=== PATIENT | female | born 1935 | race Caucasian/White ===

== ENCOUNTER → 2017-09-19 | Outpatient (CLI) | payer MEDICARE, SELFPAY | PROVIDERS: Family Provider Family Medicine; Visit Provider Orthopaedic Surgery | DX: M25.511 Pain in right shoulder (principal) | CPT/HCPCS: 73030 ==

== ENCOUNTER → 2017-10-03 09:49 | Outpatient (CLI) | payer MEDICARE, SELFPAY ==
[2017-10-03 10:28] LABS: INR 1.44 (0.9-1.1); Prothrombin Time 15.6 seconds (9.4-11.8)
== END ==
PROVIDERS: PCP Family Medicine; Visit Provider Family Medicine
DX: Z79.01 Long term (current) use of anticoagulants (principal); Z51.81 Encounter for therapeutic drug level monitoring
CPT/HCPCS: 36415; 85610

== ENCOUNTER → 2018-06-12 07:41 | Outpatient (CLI) | payer MEDICARE, SELFPAY ==
--- NOTE | 2018-06-12 07:49 | CA_ITS ---
PROCEDURE: 2-D M-mode and color Doppler study INDICATIONS FOR THE TEST: Chest pain COPD+ Heart Murmur Tobacco SmokingEX Palpitations+ Fatigue Syncope Edema+ Hypertension+Diabetes Mellitus+ Rheumatic Fever+ SOB BROWN+Obesity+Hyperlipidemia+ Family History HD+ Additional History CHF, dizziness PATIENT INFORMATION HEIGHT: 67 WEIGHT: 200 GENDER: Female B/P: 142/68 2-D/M-MODE INTERPRETATION: 2-D MEASUREMENTS OBSERVED VALUES IN CMS Right Ventricular Dimension (RVDd) 2.4 Interventricular Septum (Thickness)(IVsd) 1.5 Left Ventricular Internal Dimensions(LVIDd) 5.0 Left Ventricular Posterior Wall (Thickness)(LVPWd) 1.5 Aortic Root 2.7 Aortic Cusp Separation 2.1 Left Atrial Dimensions (LAD) 5.6 2D 1. Left atrium is moderately enlarged, left ventricle is normal size, there is mild concentric left ventricular hypertrophy, visually estimated ejection fraction 55% with no regional wall motion abnormality. 2. The right atrium and right ventricle are moderately enlarged with normal contractility. 3. The aortic valve is thickened and calcified leaflet continue to display mobility. 4. The mitral and tricuspid valve leaflets are minimally thickened, there is mild mitral annular calcification present. 5. The pulmonic valve is poorly visualized. 6. No significant pericardial effusion noted. DOPPLER INTERROGATION: Doppler interrogation of the aortic, mitral and tricuspid valvular presence of mild mitral and tricuspid regurgitation, tricuspid regurgitation calculated right ventricular systolic pressure is 55 mmHg consistent with moderate pulmonary hypertension. Diastolic parameters are inconclusive. CONCLUSION: 1. Moderate biatrial enlargement, normal left ventricular size, mild concentric left ventricular hypertrophy, visually estimated ejection fraction of 55% with no regional wall motion abnormality, diastolic parameters are inconclusive. 2. Moderately enlarged right ventricle with normal contractility. 3. Mild mitral and tricuspid regurgitation, calculated right ventricular systolic pressure is 55 mmHg consistent with moderate pulmonary hypertension. 4. No significant pericardial effusion noted.
== END ==
PROVIDERS: Family Provider Family Medicine; PCP Family Medicine; Visit Provider Internal Medicine
DX: I48.2 Chronic atrial fibrillation (principal)
CPT/HCPCS: 93306

== ENCOUNTER → 2018-12-25 11:53 | Outpatient (CLI) | payer MEDICARE, SELFPAY ==
--- NOTE | 2018-12-25 11:57 | NM_ITS ---
CARDIOLITE SPECT MYOCARDIAL PERFUSION LEXISCAN, REST AND STRESS: History: History of AR, obesity, hypertension, diabetes, hyperlipidemia, family history, chest pain shortness of breath Procedure: She received a 0.4 mg of intravenous Lexiscan, resting heart rate was 78 bpm resting blood pressure 126/73, with Lexiscan maximum heart rate achieved was 88 bpm which is less than 85% of the maximum] heart rate and a blood pressure was 110/53. With Lexiscan patient complained shortness of breath and stomach discomfort Electrocardiogram: Resting echocardiogram showed sinus rhythm inferolateral ST-T wave changes consider ischemia versus strain pattern, with Lexiscan there is additional [address] segment depression noted from the baseline EKG. The EKG portion of the Lexiscan Myoview is nondiagnostic due to baseline abnormal EKG. Cardiac stress and resting SPECT images: Cardiac stress and resting SPECT images were obtained using technetium 99 Myoview 32.7 mCi stress and 10.8 mCi at rest. Gated SPECT further analysis of segmental wall motion and calculation of the ejection fraction also done. Cardiac stress and resting SPECT images show a fixed defect involving the anteroapical and apical wall consistent with area of myocardial scarring, without significant zion-infarct ischemia, computer derived ejection fraction is extremely percent with moderate anteroapical and apical wall hypokinesis. Right ventricle is mildly enlarged with normal contractility. Conclusion: 1. The EKG portion of the Lexiscan Myoview is nondiagnostic. 2. Scintigraphic evidence of myocardial scarring involving the distal anteroapical and apical wall without significant zion-infarct ischemia. Computer derived ejection fraction 60% with segmental wall motion abnormality described above, right ventricle is mildly enlarged with normal contractility. 3. Abnormal Lexiscan Myoview study.
== END ==
PROVIDERS: PCP Family Medicine; Visit Provider Internal Medicine
DX: R06.09 Other forms of dyspnea (principal)
CPT/HCPCS: 78452; 93017; A9502; J2785

== ENCOUNTER 2019-01-20 13:29 | Outpatient (RCR) | payer MEDICARE, SELFPAY | END 2019-04-10 13:15 | disposition home or self-care (01) | LOC: PT 13:29 | PROVIDERS: Visit Provider Internal Medicine | DX: Z98.61 Coronary angioplasty status (principal) | CPT/HCPCS: 93798 ==

== ENCOUNTER 2019-05-27 09:48 | Observation (INO) ==
[2019-05-27 09:58] LABS: Basophils # 0.1 K/mm3 (0-0.2); Basophils % 0.4 % (0.1-2.0); Hematocrit 42.4 % (37.0-47.0); Hemoglobin 13.9 g/dL (12.2-16.2); Lymphocytes # 0.7 K/mm3 (0.7-4.5); Lymphocytes % 5.7 % (10-50); Mean Corpuscular HGB Conc 32.8 g/dL (31.8-35.4); Mean Corpuscular Volume 93.2 fl (81-99); Mean Platelet Volume 9.1 fl (7.4-10.4); Monocytes # 0.6 K/mm3 (0.1-1.0); Monocytes % 4.3 % (1.7-9.3); Neutrophils # 11.7 K/mm3 (1.8-7.8); Neutrophils % 89.7 % (37.0-80.0); Platelet Count 273 K/mm3 (142-424); Red Blood Count 4.55 M/mm3 (4.20-5.40); Red Cell Distribution Width 14.8 % (11.5-17.5); White Blood Count 13.1 K/mm3 (4.8-10.8)
[2019-05-27 10:21] LABS: Alanine Aminotransferase 19 U/L (12-78); Albumin Level 3.8 gm/dL (3.4-5.0); Albumin/Globulin Ratio 0.9 (1.1-1.8); Alkaline Phosphatase 99 U/L (46-116); Amylase 23 U/L (25-115); Anion Gap 18.7 mEq/L (5-15); Aspartate Amino Transferase 16 U/L (15-37); Bilirubin,Total 0.4 mg/dL (0.2-1.0); Blood Urea Nitrogen 27 mg/dL (7-18); Calcium 9.2 mg/dL (8.5-10.1); Carbon Dioxide 22 mmol/L (21.0-32.0); Chloride 90 mmol/L (98-107); Globulin 4.2 gm/dl (1.3-3.2); Glucose 221 mg/dL (74-106); Sodium 127 mmol/L (136-145)
--- NOTE | 2019-05-27 10:22 | Emergency Department Note ---
ED Disposition Clinical Impression: Enterocolitis, Chronic congestive heart failure, Coronary arteriosclerosis, Chronic atrial fibrillation, Dehydration, COPD (chronic obstructive pulmonary disease) Disposition: Admitted as Observation Condition on Discharge: Fair Referrals: Provider,MD Jluis [Referring] - Time of Disposition: 13:48 - Critical Care Critical Care Time: No Attestation: On 05/27/19, the high probability of a clinically significant, sudden or life threatening deterioration of the following system(s) required my full and direct attention, intervention and personal management. The time I documented below is in addition to time spent performing reported procedures but includes the following listed in this critical care notation. Medical Decision Making - Medical Records Medical records reviewed: Yes: I reviewed the patient's medical records. - Pradeep Inquiry Pt receiving controlled substance: No Pradeep was queried for this patient: No Vital Signs: 05/27/19 09:46 Temperature 97.7 F Temperature Source Oral Pulse Rate [Right Brachial] 90 Respiratory Rate 22 Blood Pressure [Right Arm] 100/56 L Blood Pressure Mean [Right Arm] 70 Blood Pressure Source [Right Arm] Automatic Cuff Blood Pressure Position [Right Arm] Sitting 02 Sat by Pulse Oximetry 100 Oxygen Delivery Method Room Air - Lab Data Lab results reviewed: Yes: I reviewed the patient's lab results. Lab Results 05/27/19 09:40: WBC 13.1 H, RBC 4.55, Hgb 13.9, Hct 42.4, MCV 93.2, MCH 30.6, MCHC 32.8, RDW 14.8, Plt Count 273, MPV 9.1, Neut % (Auto) 89.7 H, Lymph % (Auto) 5.7 L, [place] % (Auto) 4.3, Eos % (Auto) 0.0 L, Baso % (Auto) 0.4, Neut # (Auto) 11.7 H, Lymph # (Auto) 0.7, [place] # (Auto) 0.6, Eos # (Auto) 0.0, Baso # (Auto) 0.1, Total Counted 100, Neutrophils % (Manual) 81 H, Band Neutrophils % 8.0, Lymphocytes % (Manual) 7 L, Monocytes % (Manual) 2, Metamyelocytes % 1.0, Myelocytes % 1, Platelet Estimate Normal, RBC Morphology Normal 05/27/19 09:40: Sodium 127 L, Potassium 3.7, Chloride 90 L, Carbon Dioxide 22, Anion Gap 18.7 H, BUN 27 H, Creatinine 1.91 H, Estimated Creat Clear 31, Estimated GFR 25 L, Est GFR ( Amer) 31 L, Glucose 221 H, Calcium 9.2, Total Bilirubin 0.4, AST 16, ALT 19, Alkaline Phosphatase 99, Troponin I < 0.02, Total Protein 8.0, Albumin 3.8, Globulin 4.2 H, Albumin/Globulin Ratio 0.9 L, Amylase 23 L, Lipase 82 Result diagrams: 05/27/19 09:40 05/27/19 09:40 Orders (Tests/Meds): ED MEDICATIONS Discontinued Medications Generic Name Dose Route Start Last Admin Trade Name Freq PRN Reason Stop Dose Admin Albuterol/Ipratropium 3 ml 05/27/19 10:17 05/27/19 10:32 Duoneb 3ml Neb IH 05/27/19 10:18 3 ml ONCE ONE Administration Sodium Chloride 1,000 mls @ 999 mls/hr 05/27/19 10:30 05/27/19 10:32 Sod Chlor 0.9% 1000ml Bag IV 05/27/19 11:30 999 mls/hr .Q1H1M EDGAR Administration Ondansetron HCl 4 mg 05/27/19 10:16 05/27/19 10:32 Zofran 4mg/2ml Vial IV 05/27/19 10:17 4 mg ONCE ONE Administration ORDERS Category Date Time Status Diarrhea 23 Panel, PCR Stat Lab 05/27/19 11:20 Received UA [Urinalysis and Microscopic] Stat Lab 05/27/19 10:16 Ordered - Physician Consults Physician Consulted: ilsa Time: 13:27 Comment/Response: We discussed observation, hydration, and treatment if necessary for enterocolitis based on diarrhea panel. Her labs at this point are demonstrating only TRU with CT scan demonstrating enterocolitis and cholelithiasis( no CT evidence of cholecystitis). Her comorbidities are numerous and are favoring observation in house with repeat labs. General Adult HPI - General Chief complaint: Nausea/Vomiting/Diarrhea Stated complaint: nausea/vomiting/diarrhea Time Seen by Provider: 05/27/19 10:19 Mode of Arrival: EMS Source of Information: Patient, Relative, Medical Record Limitations: No Limitations Description of Symptoms (Recalled from ER Triage Doc. by RN): n/v/d for 4-5 days; general weakness, "not feeling well" - History of Present Illness HPI narrative: diarrhea x 3 days , incontinent, history of IBS but today she voices higher v olume diarrhea an more pain than with a typical IBS flare. Fortunately, patient is not tachycardic and to this point has no elevated cardiac markers. Onset (ago): day(s) (3-4) Location: abdomen Radiation: non-radiation Severity: moderate - Related Data Home Medications Medication Instructions Recorded Confirmed buspirone 10 mg tablet 10 mg PO BID 11/04/17 03/18/19 duloxetine 60 mg capsule,delayed 60 mg PO ONCE 11/04/17 03/18/19 release gabapentin 400 mg capsule 400 mg PO TID 11/04/17 03/18/19 levothyroxine 125 mcg tablet 125 mcg PO ONCE tab 11/04/17 03/18/19 metformin 850 mg tablet 850 mg PO BID 11/04/17 03/18/19 nitroglycerin 0.4 mg sublingual 0.4 mg SUBLINGUAL Q5M PRN 11/04/17 03/18/19 tablet omeprazole 40 mg capsule,delayed 40 mg PO ONCE 11/04/17 03/18/19 release rosuvastatin 40 mg tablet 40 mg PO ONCE 11/04/17 03/18/19 carbamazepine 200 mg tablet 200 mg PO ONCE tab 11/05/17 03/18/19 ferrous sulfate 325 mg (65 mg mg PO BID tab 11/05/17 03/18/19 iron) tablet furosemide 40 mg tablet 40 mg PO BID tab 11/05/17 03/18/19 spironolactone 25 mg tablet 25 mg PO QAM 11/05/17 03/18/19 rivaroxaban 10 mg tablet 10 mg PO DAILY 12/17/18 03/18/19 insulin aspart U-100 100 unit/mL 5 unit SQ TID 03/18/19 03/18/19 subcutaneous solution insulin glargine (U-100) 100 30 unit SQ QHS 03/18/19 03/18/19 unit/mL subcutaneous solution Previous Rx's Medication Instructions Recorded digoxin 125 mcg tablet 125 mcg PO DAILY #90 tab 01/07/19 carvedilol 6.25 mg tablet 6.25 mg PO BID #60 tab 01/12/19 clopidogrel 75 mg tablet 75 mg PO DAILY #30 tab 04/20/19 losartan 25 mg tablet 25 mg PO DAILY #30 tab 04/20/19 Allergies Allergy/AdvReac Type Severity Reaction Status Date / Time Pertussis Vaccines Allergy Mild SWELLING Verified 04/20/19 10:56 [PERTUSSIS VACCINES] tetanus and diphtheria Allergy Mild SWELLING Verified 04/20/19 10:56 toxoids [TETANUS & DIPHTHERIA TOXOIDS] Tetanus Vaccines and Toxoid Allergy Unknown SWELLING Verified 04/20/19 10:56 [TETANUS VACCINES & TOXOID] [facility] History - Hepatitis A Screen Drug use history?: No High risk sexual behaviors?: No History of sexually transmitted infection?: No Currently employed?: No Childcare worker?: No Do you have indoor plumbing?: Yes Do you have electricity?: Yes Attestation statement:: This patient has been screened for Hepatitis A risk factors. I have reviewed the patient's past medical history: Yes Medical History: Reports:: Asthma, Atrial Fibrillation, Cardiomyopathy, Congestive Heart Failure, Chronic Obstructive Pulmonary Disease (COPD), Coronary Artery Disease, Diabetes Mellitus Type 1, Hyperlipidemia, Hypertension Denies:: Seizures Other Medical History: Reports: Arthritis Other Surgeries: Yes: Cardiac Catheterization, Coronary Stent, Hysterectomy- Total, Other - Social History Smoking Status: Former smoker Tobacco Type: cigarettes Alcohol Intake: never Alcohol Intake Frequency:: other Substance Use Type: denies use Occupational Status: retired, disabled Housing: house Household Members: none Family Hx:: Non-contributory ROS Obtained: Yes All systems reviewed & no additional complaints - Constitutional Constitutional: Denies chills, Denies fatigue, Denies fever(s) - Eyes Eyes: Denies change in vision - ENT Ears, Nose, Mouth, and Throat: Reports dizziness - Cardiovascular Cardiovascular: Denies chest pain, Denies chest pain at rest, Denies diaphoresis, Reports dyspnea, Reports dyspnea on exertion, Reports lightheadedness - Respiratory Respiratory: Yes dyspnea, Yes dyspnea on exertion - Gastrointestinal Gastrointestingal: Reports: abdominal pain, diarrhea - Musculoskeletal Musculoskeletal: Denies back pain, Denies muscle cramps, Reports muscle weakness, Denies muscle aches, Denies neck pain, Denies numbness, Denies stiffness - Integumentary/Breasts Skin/Breast: Denies rash, Denies skin pain - Neurologic Neurologic: Reports abnormal gait, Denies abnormal movements, Denies abnormal speech, Denies behavioral changes, Denies confusion, Denies loss of vision, Denies seizure-like activity, Denies vertigo, Reports other (secondary to weak ness) - Hematologic/Lymphatic Henatologic/Lymphatic: Denies easy bleeding, Denies easy bruising, Denies lymphadenopathy Physical Exam - General General appearance: alert, in no apparent distress, in distress, other (mild, grunting) - Head Head exam: atraumatic, normocephalic, normal inspection - ENT ENT exam: Present: normal exam, normal oropharynx, mucous membranes moist, TM's normal bilaterally, normal external ear exam - Neck Neck exam: Present: normal inspection, full ROM, trachea midline. Absent: meningismus, lymphadenopathy - Chest Chest inspection: Present: normal inspection, symmetric chest wall rise. Absent: tenderness - Respiratory Respiratory exam: Present: normal lung sounds bilaterally. Absent: respiratory distress - Cardiovascular Cardiovascular exam: Present: regular rate, normal rhythm. Absent: JVD - Abdominal Exam Abdominal exam: Present: soft, tenderness, other (mild diffuse). Absent: d istention, guarding, rebound - Extremities Exam Extremities exam: Present: normal inspection, full ROM, normal capillary refill. Absent: calf tenderness - Back Exam Back exam: Present: normal inspection. Absent: tenderness - Neurological Exam Neurological exam: Present: alert, oriented X3 - Psychiatric Psychiatric exam: Present: normal affect - Skin Skin exam: Present: warm, dry, intact, normal color - Lymphatic Lymphatic Findings: no adenopathy
[2019-05-27 10:35] LABS: Lymphocytes % 7 % (10-50); Monocytes % 2 % (2-9); Myelocytes % 1 (0-1); Neutrophils % 81 % (42-76); RBC Morphology Normal; Total Cells Counted 100
--- NOTE | 2019-05-27 13:44 | Electrocardiograph Report ---
APPROVED REPORT Exam: Resting ECG HR:100 bpm ECG Measurements Heart Rate 100 AXES QRSd 98 QRS 45 QT 292 T240 QTc 376 <Conclusion> Atrial fibrillation with premature ventricular or aberrantly conducted complexes ST & T wave abnormality, ? lyte disturbance Abnormal ECG Electronically signed by : Aubrey Gallardo, 05/27/2019 13:43:59
--- NOTE | 2019-05-27 15:09 | History & Physical Report ---
*Admission Date: 05/27/19 *Chief complaint: Diarrhea *History of present illness: 83-year-old female presented to the emergency department with 2 to 3 days of diarrhea with 10 or more bowel movements over the last 24 hours and onset of crampy abdominal pain. History is provided by patient's [id number]. She does not believe the patient has had any fevers. The only sick contact was a great-grandson 2 weeks ago with a 24-hour stomach bug. Other family members have remained well. They all ate the same food. There has been no recent travel. Patient was evaluated in the emergency department and found to have mild acute kidney injury and stool studies were positive for Salmonella as well as enteropathogenic E. coli. Patient is been admitted and will be treated with oral precious quinolone and IV fluids with repeat labs in a.m. [facility] History I have reviewed the patient's past medical history: Yes Medical History: Reports:: Asthma, Atrial Fibrillation, Cardiomyopathy, Congestive Heart Failure, Chronic Obstructive Pulmonary Disease (COPD), Coronary Artery Disease, Diabetes Mellitus Type 1, Hyperlipidemia, Hypertension Denies:: Seizures *Have you ever received a pneumonia vaccine?: No *Have you received a flu vaccine this season?: No Other Medical History: Reports: Arthritis Other Surgeries: Yes: Cardiac Catheterization, Coronary Stent, Hysterectomy- Total, Other - *Social History Smoking Status: Former smoker Tobacco Type: cigarettes Alcohol Intake: never Alcohol Intake Frequency:: other Substance Use Type: denies use *Occupational Status:: retired, disabled Housing: house Household Members: none *Travel in the last 8 weeks: None Family Hx:: Non-contributory Review of Systems - Review of Systems Review of systems:: unable to obtain - *Neurologic Reports abnormal walking, Reports dizziness, Reports other (secondary to weakness), Denies abnormal movements, Denies abnormal speech, Denies behavioral changes, Denies confusion, Denies loss of vision, Denies numbness, Denies seizure-like activity, Denies dizziness Meds Home Medications Medication Instructions Recorded Confirmed Type duloxetine 60 mg capsule,delayed 60 mg PO ONCE 11/04/17 05/27/19 History release gabapentin 400 mg capsule 400 mg PO TID 11/04/17 05/27/19 History levothyroxine 125 mcg tablet 125 mcg PO ONCE tab 11/04/17 05/27/19 History omeprazole 40 mg capsule,delayed 40 mg PO ONCE 11/04/17 05/27/19 History release rosuvastatin 40 mg tablet 40 mg PO ONCE 11/04/17 05/27/19 History ferrous sulfate 325 mg (65 mg 325 mg PO BID tab 11/05/17 05/27/19 History iron) tablet furosemide 40 mg tablet 40 mg PO BID tab 11/05/17 05/27/19 History spironolactone 25 mg tablet 25 mg PO QAM 11/05/17 03/18/19 History rivaroxaban 10 mg tablet 10 mg PO DAILY 12/17/18 05/27/19 History insulin aspart U-100 100 unit/mL 5 unit SQ TID 03/18/19 05/27/19 History subcutaneous solution insulin glargine (U-100) 100 30 unit SQ QHS 03/18/19 05/27/19 History unit/mL subcutaneous solution Carvedilol [Carvedilol 6.25mg Tab] 6.25 mg PO BID 05/27/19 05/27/19 History Clopidogrel Bisulfate [Plavix 75mg 75 mg PO DAILY 05/27/19 05/27/19 History Tab] Digoxin 125 mcg PO DAILY 05/27/19 05/27/19 History Losartan Potassium 25 mg PO DAILY 05/27/19 05/27/19 History Allergies Allergy/AdvReac Type Severity Reaction Status Date / Time Pertussis Vaccines Allergy Mild SWELLING Verified 04/20/19 10:56 [PERTUSSIS VACCINES] tetanus and diphtheria Allergy Mild SWELLING Verified 04/20/19 10:56 toxoids [TETANUS & DIPHTHERIA TOXOIDS] Tetanus Vaccines and Toxoid Allergy Unknown SWELLING Verified 04/20/19 10:56 [TETANUS VACCINES & TOXOID] Exam Vital signs and Labs for Last 24 Hours: Temp Pulse Resp BP Pulse Ox 98.0 F 79 22 105/70 L 95 05/27/19 14:48 05/27/19 14:48 05/27/19 14:48 05/27/19 14:48 05/27/19 13:41 Laboratory Results - last 24 hr 05/27/19 09:40: WBC 13.1 H, RBC 4.55, Hgb 13.9, Hct 42.4, MCV 93.2, MCH 30.6, MCHC 32.8, RDW 14.8, Plt Count 273, MPV 9.1, Neut % (Auto) 89.7 H, Lymph % (Auto) 5.7 L, [place] % (Auto) 4.3, Eos % (Auto) 0.0 L, Baso % (Auto) 0.4, Neut # (Auto) 11.7 H, Lymph # (Auto) 0.7, [place] # (Auto) 0.6, Eos # (Auto) 0.0, Baso # (Auto) 0.1, Total Counted 100, Neutrophils % (Manual) 81 H, Band Neutrophils % 8.0, Lymphocytes % (Manual) 7 L, Monocytes % (Manual) 2, Metamyelocytes % 1.0, Myelocytes % 1, Platelet Estimate Normal, RBC Morphology Normal 05/27/19 09:40: Sodium 127 L, Potassium 3.7, Chloride 90 L, Carbon Dioxide 22, Anion Gap 18.7 H, BUN 27 H, Creatinine 1.91 H, Estimated Creat Clear 31, Estimated GFR 25 L, Est GFR ( Amer) 31 L, Glucose 221 H, Calcium 9.2, Total Bilirubin 0.4, AST 16, ALT 19, Alkaline Phosphatase 99, Troponin I < 0.02, Total Protein 8.0, Albumin 3.8, Globulin 4.2 H, Albumin/Globulin Ratio 0.9 L, Amylase 23 L, Lipase 82 05/27/19 11:20: Stl Aeromonas (PCR) Not detected, Stl C. cayetanensis PCR Not detected, Stool Rotavirus (PCR) Not detected, Stl Adenov F 40/41 PCR Not detected, Stool Astrovirus (PCR) Not detected, Stool Campylobacter PCR Not detected, Stl C.difficile Tox PCR Not detected, Stool Cryptosporidium PCR Not detected, Stl E.coli Shiga Tox PCR Not detected, Stool E coli O157 PCR Not detected, Stl Enterotoxigenic E PCR Not detected, Stool EPEC (PCR) Detected A, Stool EAEC (PCR) Detected A, Stl E. histolytica PCR Not detected, Stool Giardia Lamblia PCR Not detected, Stool Salmonella PCR Detected A, Stool Sapovirus (PCR) Not detected, Stl P. shigelloides PCR Not detected, Stl Shigella/EIEC PCR Not detected, St Y.enterocolitica PCR Not detected, Stool Vibrio (PCR) Not detected, Stl Vibrio cholerae PCR Not detected, Stl Norovirus GI/GII PCR Not detected I & O for Last 24 hours: Intake & Output 05/25/19 05/26/19 05/27/19 05/28/19 11:59 11:59 11:59 11:59 Intake Total 3450 / 3450 Output Total 780 / 780 Balance 2670 / 2670 Weight 185 lb Narrative: Patient looks like she does not feel well but she is nontoxic-appearing. Oropharynx is moist. Neck without lymphadenopathy. Lungs are clear. Heart has an irregular rate and rhythm. Abdomen is soft with mild diffuse tenderness. Bowel sounds are present. Patient can move all extremities and there is no pedal edema. Assessment and Plan (1) Salmonella enteritis Current visit: Yes Status: Acute Category: Medical Code(s): A02.0 - Salmonella enteritis (2) E coli enteritis Current visit: Yes Status: Acute Category: Medical Code(s): A04.4 - Other intestinal Escherichia coli infections (3) Enterocolitis Current visit: Yes Status: Acute Category: Medical Code(s): K52.9 - Noninfective gastroenteritis and colitis, unspecified (4) Hyponatremia Current visit: Yes Status: Acute Category: Medical Code(s): E87.1 - Hypo- osmolality and hyponatremia - Assessment and plan all Dx Assessment and Plan for all problems:: 1. Oral Levaquin 2. Continue normal saline at 100 mL's an hour 3. Monitor for response 4. Home medications
--- NOTE | 2019-05-27 16:26 | Pharmacy Consult Notes ---
[facility] Pharmacy VTE Monitoring - Patient Demographics Admission date: 05/27/19 Report Date: 05/27/19 Time: 16:26 Allergies/Adverse Reactions: Patient Allergies Pertussis Vaccines [PERTUSSIS VACCINES] Allergy (Mild, Verified 04/20/19 10:56) SWELLING tetanus and diphtheria toxoids [TETANUS & DIPHTHERIA TOXOIDS] Allergy (Mild, Verified 04/20/19 10:56) SWELLING Tetanus Vaccines and Toxoid [TETANUS VACCINES & TOXOID] Allergy (Unknown, Verified 04/20/19 10:56) SWELLING Height: 1.7 m Weight: 90.718 kg Patient Problems: Current Active Problems Enterocolitis (Acute) Dehydration (Acute) COPD (chronic obstructive pulmonary disease) (Acute) Salmonella enteritis (Acute) E coli enteritis (Acute) Hyponatremia (Acute) Chronic congestive heart failure (Chronic) Chronic atrial fibrillation (Chronic) Coronary arteriosclerosis (Chronic) - VTE Risk Labs: VTE Related Lab Results Hgb 13.9 g/dL (12.2-16.2) 05/27/19 09:40 Hct 42.4 % (37.0-47.0) 05/27/19 09:40 Plt Count 273 K/mm3 (142-424) 05/27/19 09:40 BUN 27 mg/dL (7-18) H 05/27/19 09:40 Creatinine 1.91 mg/dL (0.55-1.02) H 05/27/19 09:40 Estimated Creat Clear 31 mL/min (50-200) 05/27/19 09:40 VTE Score: 5 VTE Risk Level: Low Risk - Prophylaxis VTE Prophylaxis Ordered?: Yes Types of VTE Prophylaxis: Pharmacological Pharmacologic Type: Other (XARELTO ORDERED) - VTE Diagnosis Confirmed Treatment or plan recommended: Continue Current Treatment
[2019-05-28 07:26] LABS: Microscopic, Urine URINE MICROSCOPIC (MICROSCOPIC)
[2019-05-28 07:29] LABS: Appearance,Urine SL CLOUDY (Clear); Bilirubin,Urine Negative (Negative); Blood, Urine 1+ (Negative); Color,Urine YELLOW (Yellow); Glucose,Urine (UA) Negative (Negative); Ketones,Urine Negative (Negative); Leukocyte Esterase,Urine Negative (Negative); PH,Urine 5.5 (5.0-8.5); Protein,Urine TRACE (Negative); Urobilinogen,Urine 0.2 EU/dl (0.2)
--- NOTE | 2019-05-28 07:35 | Progress Note ---
Internal Medicine - PN: Subj *Date: 05/28/19 *Time: 07:34 Interval history: Patient continues to have some crampy abdominal pain and loose stools. She was able to rest overnight. Exam Vital signs and Labs for Last 24 Hours: Temp Pulse Resp BP Pulse Ox 97.8 F 75 20 105/46 L 99 05/28/19 04:00 05/28/19 04:00 05/28/19 04:00 05/28/19 04:00 05/28/19 04:00 Laboratory Results - last 24 hr 05/27/19 09:40: WBC 13.1 H, RBC 4.55, Hgb 13.9, Hct 42.4, MCV 93.2, MCH 30.6, MCHC 32.8, RDW 14.8, Plt Count 273, MPV 9.1, Neut % (Auto) 89.7 H, Lymph % (Auto) 5.7 L, [place] % (Auto) 4.3, Eos % (Auto) 0.0 L, Baso % (Auto) 0.4, Neut # (Auto) 11.7 H, Lymph # (Auto) 0.7, [place] # (Auto) 0.6, Eos # (Auto) 0.0, Baso # (Auto) 0.1, Total Counted 100, Neutrophils % (Manual) 81 H, Band Neutrophils % 8.0, Lymphocytes % (Manual) 7 L, Monocytes % (Manual) 2, Metamyelocytes % 1.0, Myelocytes % 1, Platelet Estimate Normal, RBC Morphology Normal 05/27/19 09:40: Sodium 127 L, Potassium 3.7, Chloride 90 L, Carbon Dioxide 22, Anion Gap 18.7 H, BUN 27 H, Creatinine 1.91 H, Estimated Creat Clear 31, Estimated GFR 25 L, Est GFR ( Amer) 31 L, Glucose 221 H, Calcium 9.2, Total Bilirubin 0.4, AST 16, ALT 19, Alkaline Phosphatase 99, Troponin I < 0.02, Total Protein 8.0, Albumin 3.8, Globulin 4.2 H, Albumin/Globulin Ratio 0.9 L, Amylase 23 L, Lipase 82 05/27/19 11:20: Stl Aeromonas (PCR) Not detected, Stl C. cayetanensis PCR Not detected, Stool Rotavirus (PCR) Not detected, Stl Adenov F 40/41 PCR Not detected, Stool Astrovirus (PCR) Not detected, Stool Campylobacter PCR Not detected, Stl C.difficile Tox PCR Not detected, Stool Cryptosporidium PCR Not detected, Stl E.coli Shiga Tox PCR Not detected, Stool E coli O157 PCR Not detected, Stl Enterotoxigenic E PCR Not detected, Stool EPEC (PCR) Detected A, Stool EAEC (PCR) Detected A, Stl E. histolytica PCR Not detected, Stool Giardia Lamblia PCR Not detected, Stool Salmonella PCR Detected A, Stool Sapovirus (PCR) Not detected, Stl P. shigelloides PCR Not detected, Stl Shigella/EIEC PCR Not detected, St Y.enterocolitica PCR Not detected, Stool Vibrio (PCR) Not detected, Stl Vibrio cholerae PCR Not detected, Stl Norovirus GI/GII PCR Not detected 05/27/19 16:47: POC Glucose 191 H 05/27/19 21:08: POC Glucose 264 H 05/28/19 06:12: POC Glucose 240 H I & O for Last 24 hours: Intake & Output 05/25/19 05/26/19 05/27/19 05/28/19 11:59 11:59 11:59 11:59 Intake Total 4430 / 4430 Output Total 780 / 780 Balance 3650 / 3650 Weight 185 lb 200 lb 8 oz Narrative: Patient appears comfortable. Lungs are clear. Heart rate is irregular. Abdomen is soft with mild diffuse tenderness. Bowel sounds are present Assessment and Plan (1) Salmonella enteritis Current visit: Yes Status: Acute Category: Medical Code(s): A02.0 - Salmonella enteritis (2) E coli enteritis Current visit: Yes Status: Acute Category: Medical Code(s): A04.4 - Other intestinal Escherichia coli infections (3) Enterocolitis Current visit: Yes Status: Acute Category: Medical Code(s): K52.9 - Noninfective gastroenteritis and colitis, unspecified (4) Hyponatremia Current visit: Yes Status: Acute Category: Medical Code(s): E87.1 - Hypo- osmolality and hyponatremia - Assessment and plan all Dx Assessment and Plan for all problems:: Continue IV fluids and oral Levaquin
[2019-05-28 07:44] LABS: Bacteria,Urine Trace /lpf; RBC,Urine Occasional #/hpf (0-3); WBC,Urine Occasional #/hpf (0-3)
[2019-05-28 07:55] LABS: Anion Gap 15.4 mEq/L (5-15)
[2019-05-28 08:01] LABS: Basophils % 0.1 % (0.1-2.0); Calcium 8.1 mg/dL (8.5-10.1); Eosinophils % 0.1 % (0.1-12.0); Hematocrit 36.7 % (37.0-47.0); Lymphocytes # 0.9 K/mm3 (0.7-4.5); Lymphocytes % 13.6 % (10-50); Mean Corpuscular HGB Conc 32.4 g/dL (31.8-35.4); Mean Corpuscular Volume 93.6 fl (81-99); Mean Platelet Volume 8.9 fl (7.4-10.4); Monocytes # 0.3 K/mm3 (0.1-1.0); Monocytes % 4.4 % (1.7-9.3); Neutrophils # 5.4 K/mm3 (1.8-7.8); Neutrophils % 81.8 % (37.0-80.0); Platelet Count 174 K/mm3 (142-424); Red Blood Count 3.91 M/mm3 (4.20-5.40); Red Cell Distribution Width 14.8 % (11.5-17.5); White Blood Count 6.6 K/mm3 (4.8-10.8)
[2019-05-28 08:05] LABS: Hemoglobin 11.9 g/dL (12.2-16.2)
--- NOTE | 2019-05-29 07:18 | Progress Note ---
Internal Medicine - PN: Subj *Date: 05/29/19 *Time: 07:17 Interval history: Patient reports persistence but improvement in crampy abdominal pain and diarrhea has become less frequent. Exam Vital signs and Labs for Last 24 Hours: Temp Pulse Resp BP Pulse Ox 97.5 F L 81 22 131/65 96 05/29/19 04:00 05/29/19 04:00 05/29/19 04:00 05/29/19 04:00 05/29/19 04:00 Laboratory Results - last 24 hr 05/28/19 07:20: Urine Color Yellow, Urine Appearance Sl cloudy, Urine pH 5.5, Ur Specific [place] 1.010, Urine Protein Trace, Urine Glucose (UA) Negative, Urine Ketones Negative, Urine Blood 1+, Urine Nitrate Negative, Urine Bilirubin Negative, Urine Urobilinogen 0.2, Ur Leukocyte Esterase Negative, Urine RBC Occasional, Urine WBC Occasional, Ur Squamous Epith Cells 5-10, Urine Bacteria Trace 05/28/19 07:30: WBC 6.6 D, RBC 3.91 L, Hgb 11.9 L D, Hct 36.7 L, MCV 93.6, MCH 30.3, MCHC 32.4, RDW 14.8, Plt Count 174 D, MPV 8.9, Neut % (Auto) 81.8 H, Lymph % (Auto) 13.6, [place] % (Auto) 4.4, Eos % (Auto) 0.1, Baso % (Auto) 0.1, Neut # (Auto) 5.4, Lymph # (Auto) 0.9, [place] # (Auto) 0.3, Eos # (Auto) 0.0, Baso # (Auto) 0.0 05/28/19 07:30: Sodium 129 L, Potassium 3.4 L, Chloride 96 L, Carbon Dioxide 21, Anion Gap 15.4 H, BUN 39 H D, Creatinine 2.02 H, Estimated Creat Clear 31, Estimated GFR 24 L, Est GFR ( Amer) 29 L, Glucose 253 H, Calcium 8.1 L D 05/28/19 11:24: POC Glucose 283 H 05/28/19 16:29: POC Glucose 250 H 05/28/19 20:09: POC Glucose 269 H 05/29/19 06:32: POC Glucose 139 H I & O for Last 24 hours: Intake & Output 05/26/19 05/27/19 05/28/19 05/29/19 11:59 11:59 11:59 11:59 Intake Total 4910 / 4910 2585 / 2585 Output Total 780 / 780 Balance 4130 / 4130 2585 / 2585 Weight 185 lb 200 lb 8 oz 200 lb 7.99 oz Narrative: Patient looks well. Lungs are clear. Heart has a regular rate and rhythm. Abdomen is soft with active bowel sounds Assessment and Plan (1) Salmonella enteritis Current visit: Yes Status: Acute Category: Medical Code(s): A02.0 - Salmonella enteritis (2) E coli enteritis Current visit: Yes Status: Acute Category: Medical Code(s): A04.4 - Other intestinal Escherichia coli infections (3) Enterocolitis Current visit: Yes Status: Acute Category: Medical Code(s): K52.9 - Noninfective gastroenteritis and colitis, unspecified (4) Hyponatremia Current visit: Yes Status: Acute Category: Medical Code(s): E87.1 - Hypo- osmolality and hyponatremia - Assessment and plan all Dx Assessment and Plan for all problems:: Await morning labs. Anticipate discharge later today
--- NOTE | 2019-05-29 07:21 | Discharge Summary ---
General - General Admission date:: 05/27/19 Discharge date: 05/29/19 HPI HPI: 83-year-old female presented to the emergency department with 2 to 3 days of diarrhea with 10 or more bowel movements over the last 24 hours and onset of crampy abdominal pain. History is provided by patient's [id number]. She does not believe the patient has had any fevers. The only sick contact was a great-grandson 2 weeks ago with a 24-hour stomach bug. Other family members have remained well. They all ate the same food. There has been no recent travel. Patient was evaluated in the emergency department and found to have mild acute kidney injury and stool studies were positive for Salmonella as well as enteropathogenic E. coli. Patient is been admitted and will be treated with oral precious quinolone and IV fluids with repeat labs in a.m. Hospital Course Hospital Course: Patient was admitted and diarrhea panel revealed multiple organisms including Salmonella and enteropathogenic E. coli. Patient was given oral Levaquin 500 mg. Over the course of 48 hours patient's abdominal cramping decreased in intensity. Frequency of bowel movements also decreased. Patient did not have any vomiting and was able to tolerate a liquid diet. Patient was given IV fluids for mild dehydration present on admission. On May 29 patient was tolerating diet. Abdominal cramping had improved. Diarrhea was less frequent. Patient was discharged home to complete a course of oral antibiotics. Patient will follow-up in my office next week. Patient had mild acute kidney injury on admission. Medication adjustments will be made at discharge and patient will have repeat labs in follow-up Objective Vital signs: Temp Pulse Resp BP Pulse Ox 97.5 F L 81 22 131/65 96 05/29/19 04:00 05/29/19 04:00 05/29/19 04:00 05/29/19 04:00 05/29/19 04:00 Results Labs on day of discharge: Labs from last 24 hours 05/29/19 05/28/19 05/28/19 06:32 20:09 16:29 WBC RBC Hgb Hct MCV MCH MCHC RDW Plt Count MPV Neut % (Auto) Lymph % (Auto) [place] % (Auto) Eos % (Auto) Baso % (Auto) Neut # (Auto) Lymph # (Auto) [place] # (Auto) Eos # (Auto) Baso # (Auto) Sodium Potassium Chloride Carbon Dioxide Anion Gap BUN Creatinine Estimated Creat Clear Estimated GFR Est GFR ( Amer) Glucose POC Glucose 139 H 269 H 250 H Calcium Urine Color Urine Appearance Urine pH Ur Specific [place] Urine Protein Urine Glucose (UA) Urine Ketones Urine Blood Urine Nitrate Urine Bilirubin Urine Urobilinogen Ur Leukocyte Esterase Urine RBC Urine WBC Ur Squamous Epith Cells Urine Bacteria 05/28/19 05/28/19 05/28/19 11:24 07:30 07:30 WBC 6.6 D RBC 3.91 L Hgb 11.9 L D Hct 36.7 L MCV 93.6 MCH 30.3 MCHC 32.4 RDW 14.8 Plt Count 174 D MPV 8.9 Neut % (Auto) 81.8 H Lymph % (Auto) 13.6 [place] % (Auto) 4.4 Eos % (Auto) 0.1 Baso % (Auto) 0.1 Neut # (Auto) 5.4 Lymph # (Auto) 0.9 [place] # (Auto) 0.3 Eos # (Auto) 0.0 Baso # (Auto) 0.0 Sodium 129 L Potassium 3.4 L Chloride 96 L Carbon Dioxide 21 Anion Gap 15.4 H BUN 39 H D Creatinine 2.02 H Estimated Creat Clear 31 Estimated GFR 24 L Est GFR ( Amer) 29 L Glucose 253 H POC Glucose 283 H Calcium 8.1 L D Urine Color Urine Appearance Urine pH Ur Specific [place] Urine Protein Urine Glucose (UA) Urine Ketones Urine Blood Urine Nitrate Urine Bilirubin Urine Urobilinogen Ur Leukocyte Esterase Urine RBC Urine WBC Ur Squamous Epith Cells Urine Bacteria 05/28/19 07:20 WBC RBC Hgb Hct MCV MCH MCHC RDW Plt Count MPV Neut % (Auto) Lymph % (Auto) [place] % (Auto) Eos % (Auto) Baso % (Auto) Neut # (Auto) Lymph # (Auto) [place] # (Auto) Eos # (Auto) Baso # (Auto) Sodium Potassium Chloride Carbon Dioxide Anion Gap BUN Creatinine Estimated Creat Clear Estimated GFR Est GFR ( Amer) Glucose POC Glucose Calcium Urine Color Yellow Urine Appearance Sl cloudy Urine pH 5.5 Ur Specific [place] 1.010 Urine Protein Trace Urine Glucose (UA) Negative Urine Ketones Negative Urine Blood 1+ Urine Nitrate Negative Urine Bilirubin Negative Urine Urobilinogen 0.2 Ur Leukocyte Esterase Negative Urine RBC Occasional Urine WBC Occasional Ur Squamous Epith Cells 5-10 Urine Bacteria Trace DS: Diagnosis - Discharge Diagnosis (1) Salmonella enteritis Status: Acute (2) E coli enteritis Status: Acute (3) Enterocolitis Status: Acute (4) Hyponatremia Status: Acute Discharge Plan - Patient Discharge Instructions ACTIVITY: Continue current activity DIET: continue same diet Patient Instructions: Chronic Obstructive Pulmonary Disease, Salmonellosis, DI for Chronic Obstructive Pulmonary Disease, DI for Dehydration -- Adult - Follow up Plan Disposition: Home, Self-Usp Medications: Home Medications Medication Instructions Recorded Confirmed Type duloxetine 60 mg capsule,delayed 60 mg PO DAILY 11/04/17 05/27/19 History release gabapentin 400 mg capsule 400 mg PO TID 11/04/17 05/27/19 History levothyroxine 125 mcg tablet 125 mcg PO DAILY tab 11/04/17 05/28/19 History omeprazole 40 mg capsule,delayed 40 mg PO HS 11/04/17 05/27/19 History release ferrous sulfate 325 mg (65 mg 325 mg PO BID tab 11/05/17 05/27/19 History iron) tablet furosemide 40 mg tablet 40 mg PO BID tab 11/05/17 05/27/19 History rivaroxaban 10 mg tablet 10 mg PO QPMWM 12/17/18 05/28/19 History insulin aspart U-100 100 unit/mL 5 unit SQ TID 03/18/19 05/27/19 History subcutaneous solution insulin glargine (U-100) 100 30 unit SQ HS 03/18/19 05/28/19 History unit/mL subcutaneous solution Carvedilol [Carvedilol 6.25mg Tab] 6.25 mg PO BID 05/27/19 05/27/19 History Clopidogrel Bisulfate [Plavix 75mg 75 mg PO DAILY 05/27/19 05/27/19 History Tab] Digoxin 125 mcg PO DAILY 05/27/19 05/27/19 History Losartan Potassium 25 mg PO DAILY 05/27/19 05/27/19 History Fluticasone/Vilanterol [Breo 2 puff IN DAILY 05/28/19 05/28/19 History Ellipta 100-25 Mcg INH] Rosuvastatin Calcium 40 mg PO HS 05/28/19 05/28/19 History Spironolactone [Aldactone 25mg Tab] 25 mg PO DAILY 05/28/19 05/28/19 History Umeclidinium [place]app[place] [Incruse 1 puff IH DAILY 05/28/19 05/28/19 History Ellipta] Ciprofloxacin HCl [Cipro 500mg 500 mg PO BID #10 tab 05/29/19 Rx Tab] Prescriptions/Medication Reconciliation: New Ciprofloxacin HCl [Cipro 500mg Tab] 500 mg PO BID #10 tab Continued duloxetine 60 mg capsule,delayed release 60 mg PO DAILY gabapentin 400 mg capsule 400 mg PO TID levothyroxine 125 mcg tablet 125 mcg PO DAILY tab omeprazole 40 mg capsule,delayed release 40 mg PO HS furosemide 40 mg tablet 40 mg PO BID tab rivaroxaban 10 mg tablet 10 mg PO QPMWM insulin aspart U-100 100 unit/mL subcutaneous solution 5 unit SQ TID insulin glargine (U-100) 100 unit/mL subcutaneous solution 30 unit SQ HS ferrous sulfate 325 mg (65 mg iron) tablet 325 mg PO BID tab Digoxin 125 mcg PO DAILY Clopidogrel Bisulfate [Plavix 75mg Tab] 75 mg PO DAILY Carvedilol [Carvedilol 6.25mg Tab] 6.25 mg PO BID Rosuvastatin Calcium 40 mg PO HS Fluticasone/Vilanterol [Breo Ellipta 100-25 Mcg INH] 2 puff IN DAILY Umeclidinium [place] [Incruse Ellipta] 1 puff IH DAILY Discontinued Losartan Potassium 25 mg PO DAILY Spironolactone [Aldactone 25mg Tab] 25 mg PO DAILY - Problem Reconciliation Problems Reviewed?: Yes
[2019-05-29 07:54] LABS: Basophils % 0.1 % (0.1-2.0); Eosinophils % 0.4 % (0.1-12.0); Hematocrit 34.3 % (37.0-47.0); Lymphocytes # 0.9 K/mm3 (0.7-4.5); Mean Corpuscular HGB Conc 32.2 g/dL (31.8-35.4); Monocytes # 0.5 K/mm3 (0.1-1.0); Monocytes % 9.6 % (1.7-9.3); Neutrophils # 4.1 K/mm3 (1.8-7.8); Neutrophils % 73.9 % (37.0-80.0); Platelet Count 160 K/mm3 (142-424); Red Blood Count 3.64 M/mm3 (4.20-5.40); Red Cell Distribution Width 14.8 % (11.5-17.5); White Blood Count 5.6 K/mm3 (4.8-10.8)
[2019-05-29 07:58] LABS: Anion Gap 10.1 mEq/L (5-15); Calcium 8.2 mg/dL (8.5-10.1)
== END 2019-05-29 10:44 | disposition home or self-care (01) ==
LOC: 2ND 09:48 → ER 09:48 → 2ND 15:03
PROVIDERS: ADMIT Family Medicine; ATTEND Family Medicine
DX: A04.4 Other intestinal Escherichia coli infections; E87.1 Hypo-osmolality and hyponatremia; J44.9 Chronic obstructive pulmonary disease, unspecified; E10.8 Type 1 diabetes mellitus with unspecified complications; I25.10 Atherosclerotic heart disease of native coronary artery without angina pectoris; E78.5 Hyperlipidemia, unspecified; Z87.19 Personal history of other diseases of the digestive system; A02.0 Salmonella enteritis; I48.2 Chronic atrial fibrillation; Z79.899 Other long term (current) drug therapy; I50.9 Heart failure, unspecified; Z79.4 Long term (current) use of insulin; Z88.7 Allergy status to serum and vaccine; Z87.891 Personal history of nicotine dependence; Z79.84 Long term (current) use of oral hypoglycemic drugs; Z86.79 Personal history of other diseases of the circulatory system; I11.0 Hypertensive heart disease with heart failure
CPT/HCPCS: 36415; 71010; 71045; 74176; 80048; 80053; 81001; 82150; 82962; 83690; 84484; 85007; 85025; 87507; 93005; 94640; 94761; 96365; 96366; 96375; 99283; G0378; J2405

== ENCOUNTER 2020-04-20 10:28 | Observation (INO) | payer MEDICARE, SELFPAY ==
[2020-04-20] VITALS (19 sets, daily range): BP systolic 110–172; BP diastolic 72–104; PULSE 78–122; RESP 18–21; TEMP 36.5–36.9; O2SAT 92–99; BMI 32.1; BMI 36.3
--- NOTE | 2020-04-20 10:35 | ECG_ITS ---
APPROVED REPORT Exam: Resting ECG HR:108 bpm ECG Measurements Heart Rate 108 AXES QRSd 102 QRS 52 QT 354 T 80 QTc 474 <Conclusion> Atrial fibrillation with rapid ventricular response Low voltage QRS Abnormal ECG Electronically signed by : Ernst Ramirez, 04/22/2020 20:08:50
--- NOTE | 2020-04-20 10:50 | PC.NURSE ---
Spoke with BHAVANA.
--- NOTE | 2020-04-20 11:00 | XR_ITS ---
PROCEDURE: XR CHEST PORTABLE CLINICAL INDICATION: shortness fo breath COMPARISON: XR CHEST PORTABLE from 05/27/2019 CT ABDOMEN PELVIS WO CON from 05/27/2019 FINDINGS: There is cardiomegaly without failure. There is increased density in the right lower lobe with silhouetting out of the heart border. Masslike consolidation or pulmonary mass is considered. Consider chest CT for further evaluation. Other findings:Surgical clips are present in the right paratracheal region with tracheal deviation to the right. Left paratracheal mass/thyroid enlargement is suspected IMPRESSION: 1. Cardiomegaly with right lower lobe mass or masslike consolidation. 2. Tracheal deviation toward the right with suspected left paratracheal mass. 3. Recommend chest CT for further evaluation. Dictated by: Johnahton Browne MD 04/20/2020 11:36 Electronically signed by Johnathon Browne MD in [place] 04/20/2020 11:36
[2020-04-20 11:08] LABS: Basophils % 0.4 % (0.1-2.0); Eosinophils # 0.1 K/mm3 (0.0-0.4); Eosinophils % 1.5 % (0.1-12.0); Hematocrit 34.1 % (37.0-47.0); Hemoglobin 11.2 g/dL (12.2-16.2); Lymphocytes # 0.9 K/mm3 (0.7-4.5); Lymphocytes % 17.8 % (10-50); Mean Corpuscular HGB Conc 32.7 g/dL (31.8-35.4); Mean Corpuscular Hemoglobin 31.1 pg (27.0-31.2); Mean Platelet Volume 8.8 fl (7.4-10.4); Monocytes # 0.3 K/mm3 (0.1-1.0); Monocytes % 5.5 % (1.7-9.3); Neutrophils # 3.9 K/mm3 (1.8-7.8); Neutrophils % 74.8 % (37.0-80.0); Platelet Count 204 K/mm3 (142-424); Red Blood Count 3.59 M/mm3 (4.20-5.40); Red Cell Distribution Width 16.2 % (11.5-17.5); White Blood Count 5.2 K/mm3 (4.8-10.8)
[2020-04-20 11:09] LABS: Chloride 98 mmol/L (98-107); Potassium 4.4 mmoL/L (3.5-5.1); Sodium 134 mmol/L (136-145)
[2020-04-20 11:11] LABS: Blood Urea Nitrogen 16 mg/dl (7-17); Creatinine Clearance Estimated 64 mL/min (50-200); Estimated Glomerular Filt Rate 69 ml/min (>60); GFR (African American) 83 ML/MIN (>60)
[2020-04-20 11:12] LABS: Alanine Aminotransferase 21 U/L (12-78); Albumin/Globulin Ratio 1.3 (1.1-1.8); Alkaline Phosphatase 95 U/L (38-126); Anion Gap 15.4 mEq/L (5-15); Aspartate Amino Transferase 26 U/L (14-36); Bilirubin,Total 0.4 mg/dl (0.2-1.3); Calcium 9.3 mg/dl (8.4-10.2); Carbon Dioxide 25 mmol/L (22.0-30.0); Globulin 3.1 g/dL (1.3-3.2); Glucose 210 mg/dl (74-100); Total Protein,Serum 7.1 g/dl (6.3-8.2)
--- NOTE | 2020-04-20 11:17 | HMH.EDGENADL ---
ED Disposition Clinical Impression: Atrial fibrillation with rapid ventricular response, Collapse of right lung Acute exacerbation of congestive heart failure Qualifiers: Heart failure type: unspecified Qualified Code(s): I50.9 - Heart failure, unspecified Disposition: Admitted as Observation Condition on Discharge: Fair - Critical Care Critical Care Time: Yes Attestation: On 04/20/20, the high probability of a clinically significant, sudden or life threatening deterioration of the following system(s) required my full and direct attention, intervention and personal management. The time I documented below is in addition to time spent performing reported procedures but includes the following listed in this critical care notation. Total Critical Care Time: 30 Vital system(s) involved:: Circulatory Failure My critical care processes included: Assessment & monitoring of V/S, Initial and Re-exams, Data Review/Interpretation, Coordinating Care, Medication Orders and management, Documentation Medical Decision Making - Medical Records Medical records reviewed: Yes: I reviewed the patient's medical records. - Pradeep Inquiry Pt receiving controlled substance: No Vital Signs: 04/20/20 10:52 04/20/20 11:29 04/20/20 11:30 Temperature 97.7 F Temperature Source Oral Pulse Rate [Radial] 120 H 119 H 118 H Respiratory Rate 20 18 Blood Pressure [Right Arm] 134/104 H 110/77 132/83 Blood Pressure Mean [Right Arm] 114 88 99 Blood Pressure Source [Right Arm] Automatic Cuff Automatic Cuff Automatic Cuff Blood Pressure Position [Right Arm] Sitting Sitting Sitting 02 Sat by Pulse Oximetry 97 96 98 Oxygen Delivery Method Room Air Room Air Room Air 04/20/20 12:00 04/20/20 12:30 04/20/20 13:32 Temperature Temperature Source Pulse Rate [Radial] 120 H 122 H 102 H Respiratory Rate 21 Blood Pressure [Right Arm] 120/78 118/83 130/94 H Blood Pressure Mean [Right Arm] 92 94 106 Blood Pressure Source [Right Arm] Automatic Cuff Automatic Cuff Blood Pressure Position [Right Arm] Sitting 02 Sat by Pulse Oximetry 99 99 94 L Oxygen Delivery Method Room Air Room Air Room Air 04/20/20 14:04 04/20/20 14:39 Temperature Temperature Source Pulse Rate [Radial] 112 H 97 H Respiratory Rate Blood Pressure [Right Arm] 117/90 129/91 H Blood Pressure Mean [Right Arm] 99 103 Blood Pressure Source [Right Arm] Automatic Cuff Automatic Cuff Blood Pressure Position [Right Arm] Sitting Sitting 02 Sat by Pulse Oximetry 93 L 92 L Oxygen Delivery Method Room Air Room Air - Lab Data Lab results reviewed: Yes: I reviewed the patient's lab results. Lab Results 04/20/20 10:50: WBC 5.2, RBC 3.59 L, Hgb 11.2 L, Hct 34.1 L, MCV 95.0, MCH 31.1, MCHC 32.7, RDW 16.2, Plt Count 204, MPV 8.8, Neut % (Auto) 74.8, Lymph % (Auto) 17.8, [place] % (Auto) 5.5, Eos % (Auto) 1.5, Baso % (Auto) 0.4, Neut # (Auto) 3.9, Lymph # (Auto) 0.9, [place] # (Auto) 0.3, Eos # (Auto) 0.1, Baso # (Auto) 0.0 04/20/20 10:50: Sodium 134 L, Potassium 4.4, Chloride 98, Carbon Dioxide 25, Anion Gap 15.4 H, BUN 16, Creatinine 0.80, Estimated Creat Clear 64, Estimated GFR 69, Est GFR ( Amer) 83, Glucose 210 H, Calcium 9.3, Total Bilirubin 0.4, AST 26, ALT 21, Alkaline Phosphatase 95, Troponin I 0.04 H, Total Protein 7.1, Albumin 4.0, Globulin 3.1, Albumin/Globulin Ratio 1.3 04/20/20 10:50: NT-Pro-B Natriuret Pep 1690 H 04/20/20 10:50: Digoxin < 0.40 04/20/20 10:50: TSH 9.31 H 04/20/20 13:50: Troponin I 0.04 H 04/20/20 13:50: Lactate 1.9 Result diagrams: 04/20/20 10:50 04/20/20 10:50 Orders (Tests/Meds): ED MEDICATIONS Generic Name Dose Route Start Last Admin Trade Name Freq PRN Reason Stop Dose Admin Acetaminophen 650 mg 04/20/20 15:03 Acetaminophen 325mg Tab PO 05/20/20 15:02 Q4HP PRN As Needed for Fever or Pain Albuterol/Ipratropium 3 ml 04/20/20 20:00 Duoneb 3ml Neb IH 05/20/20 19:59 QIDRT EDGAR Carbamazepine 200 mg 04/21/20 09:0
[2020-04-20 11:24] LABS: Troponin I 0.04 ng/ml (0.00-0.034)
--- NOTE | 2020-04-20 11:34 | CT_ITS ---
PROCEDURE: CT CHEST W CON CLINCAL INDICATION: infilt vs lung mass R lung Shortness of breath, right lower lobe mass or infiltrate. COMPARISON: WO CT CHEST W/O CONTRAST from 11/08/2015 CT ABDOMEN PELVIS WO CON from 05/27/2019 TECHNIQUE: IV Contrast: 75ml Optiray 350 Axial images obtained with sagittal and coronal reformats. All CT scans at the facility use one or more dose reduction, viz: automated exposure control, ma/kV adjustment per patient size (including targeted exams where dose is matched to indication, i.e. head), or iterative reconstruction technique. FINDINGS: HEART AND MEDIASTINAL STRUCTURES: Left lobe of the thyroid gland is enlarged 6 cm AP 4 cm transverse and at least 5 cm cephalad caudad incompletely imaged along superior aspect consistent with goiter. This is similar compared to the previous exam. There are surgical clips in the superior mediastinum. No evidence of aortic aneurysm or dissection. Coronary artery calcifications and aortic valve calcifications are present. There is cardiomegaly. LUNGS AND PLEURAL SPACES: There is a small right-sided pleural effusion. Consolidation/collapse is present involving the medial aspect of the right middle lobe with air bronchograms which is felt to be the cause of the radiographic abnormality.. No suspicious pulmonary nodules are evident. Small amount of fluid is present in the major fissure superiorly on the right. There is a 7 mm nodule within the left upper lobe best seen on series 601, image 45 not readily apparent on the previous exam BONY STRUCTURES: Kyphosis noted of the thoracic spine. 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 Small right renal cyst at 1.9 cm. There is minimal amount of perihepatic fluid. Slight increased density noted in the portal region of the liver and may be due to edema ADDITIONAL FINDINGS: No other significant abnormalities. IMPRESSION: 1. Consolidation/collapse of the medial aspect of the right middle lobe resulting in the radiographic abnormality. There is small right-sided pleural effusion. 2. Left-sided thyroid enlargement with compression and displacement of the trachea toward the right not significantly changed. The 3. 7 mm left upper lobe nodule indeterminate. Recommend six-month follow-up 4. Other nonacute findings as described above Dictated by: Johnathon Browne MD 04/20/2020 13:15 Electronically signed by Johnathon Browne MD in [place] 04/20/2020 13:15
[2020-04-20 12:21] LABS: NT Pro Brain Natriuretic Pep. 1690 pg/mL (0-450)
--- NOTE | 2020-04-20 12:28 | PC.NURSE ---
Rad called and advised that pt IV had infiltrated.
--- NOTE | 2020-04-20 12:45 | PC.NURSE ---
Went to radiology and started new 20 g IV in the right AC with no complications
[2020-04-20 14:11] LABS: Lactic Acid 1.9 mmol/L (0.7-2.1)
[2020-04-20 14:23] LABS: Troponin I 0.04 ng/ml (0.00-0.034)
--- NOTE | 2020-04-20 14:26 | P.CONPHA_ITS ---
[facility] Pharmacy VTE Monitoring - Patient Demographics Admission date: 04/20/20 Report Date: 04/20/20 Time: 14:26 Allergies/Adverse Reactions: Patient Allergies Pertussis Vaccines [PERTUSSIS VACCINES] Allergy (Mild, Verified 04/20/20 10:04) SWELLING tetanus and diphtheria toxoids [TETANUS & DIPHTHERIA TOXOIDS] Allergy (Mild, Verified 04/20/20 10:04) SWELLING Tetanus Vaccines and Toxoid [TETANUS VACCINES & TOXOID] Allergy (Unknown, Verified 04/20/20 10:04) SWELLING Height: 1.7 m Weight: 92.986 kg Patient Problems: Current Active Problems Atrial fibrillation with rapid ventricular response (Acute) Collapse of right lung (Acute) Acute exacerbation of congestive heart failure (Acute) - VTE Risk Labs: VTE Related Lab Results Hgb 11.2 g/dL (12.2-16.2) L 04/20/20 10:50 Hct 34.1 % (37.0-47.0) L 04/20/20 10:50 Plt Count 204 K/mm3 (142-424) 04/20/20 10:50 BUN 16 mg/dl (7-17) 04/20/20 10:50 Creatinine 0.80 mg/dl (0.52-1.04) 04/20/20 10:50 Estimated Creat Clear 64 mL/min (50-200) 04/20/20 10:50 Clinical Trial Participant: No - Prophylaxis VTE Prophylaxis Ordered?: Yes Types of VTE Prophylaxis: TEDS Knee High
[2020-04-20 14:27] LABS: Digoxin < 0.40 ng/ml (0.2-2.00)
--- NOTE | 2020-04-20 14:41 | PC.NURSE ---
Cardizem drip increased to 10ml/hr.
--- NOTE | 2020-04-20 14:47 | HMH.PHAINT ---
MEDICATION RECONCILIATION COMPLETED USING EXTERNAL FILL HISTORY AND OFFICE VISIT DOCUMENT FROM 04/20/2020.
--- NOTE | 2020-04-20 15:04 | PC.NURSE ---
Report called to ONEAL Chua
[2020-04-20 15:11] LABS: Thyroid Stimulating Hormone 9.31 uIU/mL (0.465-4.68)
--- NOTE | 2020-04-20 15:36 | CA_ITS ---
APPROVED REPORT EXAM: Comprehensive 2D, Doppler, and color-flow Echocardiogram Data Warehouse Consultant: Juju Lorenzana RT(R) Ht: 5 ft 7 in Wt: 205lbs BSA: 2.04 BP: 132/83 mmHg Indications: SOB, AFIB with RVR, ex smoker, COPD, edema, hyperlipidemia, HTN 2D Dimensions LVOT 2.07 cm (M/F) 1.5-2.5 M-Mode Dimensions RVDd 2.71 cm (0.9-2.6) LVDd 4.96 cm (3.5-5.7) LVDs 3.77 cm (3.5-5.7) IVSd 1.27 cm (0.6-1.1) PWd 1.06 cm (0.6-1.1) EF (Teich) 47.60% FS 24.00% EDV (Teich) 116.10 mL ESV (Teich) 60.80 mL Left Ventricle Left atrium is markedly enlarged, left ventricle is normal size, mild concentric left ventricular hypertrophy, visually estimated ejection fraction 55% with no regional wall motion abnormality, endocardial surfaces are poorly visualized. Diastolic parameters are inconclusive. Right Ventricle Right atrium and right ventricle moderately enlarged with normal contractility. Aortic Valve Aortic valve is thickened and calcified without aortic stenosis or aortic insufficiency. Mitral Valve Mitral valve has mitral calcification, leaflets are minimally thickened, there is mild mitral regurgitation. Tricuspid Valve Tricuspid valve is grossly normal, there is mild tricuspid regurgitation, calculated right ventricular systolic pressure is 47 mmHg. Pulmonic Valve Pulmonic valve is poorly visualized. Great Vessels Aortic root is normal size. Pericardium No significant pericardial effusion noted. Conclusion 1. Markedly enlarged left atrium, normal left ventricular size, mild concentric left ventricular hypertrophy, visually estimated ejection fraction 55% with no regional wall motion abnormality, diastolic parameters are inconclusive, Doppler evidence of raise left ventricular end-diastolic pressure. 2. Moderately enlarged right ventricle with normal contractility. 3. Thickened and calcified aortic valve without Doppler evidence of aortic stenosis or aortic insufficiency. 4. Mild mitral and tricuspid regurgitation. Calculated right ventricular systolic pressure is 47 mmHg. 5. No significant pericardial effusion noted. Electronically signed by : Devin Wu, 04/21/2020 10:00:12
--- NOTE | 2020-04-20 15:51 | HMH.PNCARD ---
Subjective Date: 04/20/20 Time: 14:00 Principal diagnosis: afib with RVR Interval history: Pt was seen in outpatient cardiology clinic today and was sent to ER for afib with RVR. Note from outpatient visit as follows: Here for f/u CAD/HTN/HLD/AFIB CAD-H/O ROHAN 12/2018. Pt is on Plavix. Denies cp, states she is having a lot of chest pressure/tightness, she states she noticed this getting worse about 1-2 weeks ago, denies radiation of her chest pressure, states it stays localized in the chest States she has occasional dizziness and lightheadedness at times, states this will affect her balance SOB with minimal exertion is present and this is getting worse Swelling in BLE is present Daytime fatigue and weakness are present, states that she sleeps alot and her energy level is low A fib chronic, RVR, rate 118 bpm. A/C Xarelto, denies bleeding. BP hypotensive. Bilateral lower ext edema LDL goal is <55. On statin. DM is not well controlled. Last A1C 10.0 RYLAN is untreated She is very short of breath, her heart rate is elevated, unable to adjust her beta blockers secondary to hypotension. Spoke with caregiver Betsy via phone. She is aware pt is being treated in the ED. Would recommend patient to go to ER for further treatment Afib RVR. PLAN: 1. Report to ER for further eval and treatment of Dyspnea, Afib RVR. symptoms unchanged at this time. Exam Vital signs and Labs for Last 24 Hours: Temp Pulse Resp BP Pulse Ox 98.4 F 97 H 21 129/91 H 92 L 04/20/20 15:33 04/20/20 15:33 04/20/20 15:33 04/20/20 15:33 04/20/20 14:39 Laboratory Results - last 24 hr 04/20/20 10:50: WBC 5.2, RBC 3.59 L, Hgb 11.2 L, Hct 34.1 L, MCV 95.0, MCH 31.1, MCHC 32.7, RDW 16.2, Plt Count 204, MPV 8.8, Neut % (Auto) 74.8, Lymph % (Auto) 17.8, [place] % (Auto) 5.5, Eos % (Auto) 1.5, Baso % (Auto) 0.4, Neut # (Auto) 3.9, Lymph # (Auto) 0.9, [place] # (Auto) 0.3, Eos # (Auto) 0.1, Baso # (Auto) 0.0 04/20/20 10:50: Sodium 134 L, Potassium 4.4, Chloride 98, Carbon Dioxide 25, Anion Gap 15.4 H, BUN 16, Creatinine 0.80, Estimated Creat Clear 64, Estimated GFR 69, Est GFR ( Amer) 83, Glucose 210 H, Calcium 9.3, Total Bilirubin 0.4, AST 26, ALT 21, Alkaline Phosphatase 95, Troponin I 0.04 H, Total Protein 7.1, Albumin 4.0, Globulin 3.1, Albumin/Globulin Ratio 1.3 04/20/20 10:50: NT-Pro-B Natriuret Pep 1690 H 04/20/20 10:50: Digoxin < 0.40 04/20/20 10:50: TSH 9.31 H 04/20/20 13:50: Troponin I 0.04 H 04/20/20 13:50: Lactate 1.9 I & O for Last 24 hours: Intake & Output 04/17/20 04/18/20 04/19/20 04/20/20 23:59 23:59 23:59 23:59 Weight 205 lb Progress Note: A&P (1) Atrial fibrillation with RVR Status: Acute Current Visit: Yes (2) Elevated troponin Status: Acute Current Visit: Yes (3) SOB (shortness of breath) Status: Acute Current Visit: Yes (4) Hypothyroidism Status: Acute Current Visit: Yes (5) Elevated brain natriuretic peptide (BNP) level Status: Acute Current Visit: Yes (6) Hypertensive heart disease Status: Chronic Current Visit: No (7) Coronary arteriosclerosis Status: Chronic Current Visit: No (8) Pulmonary hypertension Status: Acute Current Visit: Yes Assessment and Plan for All Diagnoses:: Plan: 1. The patient was evaluated in outpatient cardiology clinic and sent to the emergency department for atrial fibrillation with RVR and shortness of breath. The patient has been started on a diltiazem drip for the atrial fibrillation with RVR. We will continue the diltiazem drip at this time. 2. Patient is having shortness of breath. Her BNP is over 1000. We will get an echocardiogram to evaluate her LV function secondary to her shortness of breath and known pulmonary hypertension. 3. We will also diurese the patient with Lasix 40 mg IV twice daily secondary to her shortness of breath and elevated BNP. Continue Spironolactone. 4. She does have an elevated troponin however this is most likely sec
[2020-04-20 16:36] LABS: POC Glucose,Bedside 154 (70-110)
[2020-04-20 17:40] LABS: Troponin I 0.04 ng/ml (0.00-0.034)
--- NOTE | 2020-04-20 18:11 | PC.NURSE ---
Pt arrived to the floor @ approx 1540 accompanied by barry Garcia RN and LAMIN Mendez. Prajapati is to bedside draining light yellow urine, 3100 mls of urine out thus far. Cardizem gtt is at 10 mls/hr with HR running 80-105. Afib on telemetry with some pvc's noted. Per family member patient is an assist x1 at home. Last BM per patient was on 04/18, she states she doesn't have a bm everyday. Pt instructed on use of IS with successful return demonstration. Will continue to monitor.
--- NOTE | 2020-04-20 19:11 | PC.NURSE ---
report given to fauzia
--- NOTE | 2020-04-20 20:44 | PC.NURSE ---
Pt's room air sat at rest = 90%.
[2020-04-20 21:25] LABS: POC Glucose,Bedside 149 (70-110)
[2020-04-21] VITALS (32 sets, daily range): BP systolic 112–159; BP diastolic 65–120; PULSE 81–120; RESP 17–20; TEMP 36.4–36.9; O2SAT 86–100; BMI 33.7
--- NOTE | 2020-04-21 04:49 | PC.NURSE ---
at 2135 cardizem drip increased to 15 mg/hr for a sustained heart rate over 100, at 0100 cardizem drip decreased to 10 mg/hr, at 0215 cardizem drip decreased to 5 mg/hr
[2020-04-21 06:21] LABS: POC Glucose,Bedside 156 (70-110)
[2020-04-21 06:36] LABS: Chloride 96 mmol/L (98-107); Potassium 3.8 mmoL/L (3.5-5.1); Sodium 133 mmol/L (136-145)
[2020-04-21 06:39] LABS: Anion Gap 13.8 mEq/L (5-15); Blood Urea Nitrogen 17 mg/dl (7-17); Calcium 8.9 mg/dl (8.4-10.2); Carbon Dioxide 27 mmol/L (22.0-30.0); Creatinine Clearance Estimated 67 mL/min (50-200); Estimated Glomerular Filt Rate 69 ml/min (>60); GFR (African American) 83 ML/MIN (>60); Glucose 148 mg/dl (74-100)
--- NOTE | 2020-04-21 07:48 | HMH.HP ---
*Admission Date: 04/20/20 *Chief complaint: Shortness of breath *History of present illness: 84-year-old female sent to the ER through the cardiology office yesterday after patient was hypotensive with uncontrolled atrial fibrillation in the office. Patient reported symptoms of dyspnea at rest and on exertion with worsening symptoms over the preceding 2 weeks. In the emergency department patient was in atrial fibrillation with a heart rate of 120 bpm, hypotension had resolved in the emergency department, patient had an elevated BNP as well. Chest x-ray was inconclusive for any infiltrate and a chest CT showed right middle lobe collapse but no mass. Patient was admitted on a Cardizem drip with cardiology consultation. She was also admitted with incentive spirometry for her right middle lobe collapse and continued use of her COPD medications. This morning the patient reports feeling better. She is diuresed nearly 5 L since admission. Heart rate is currently bouncing between the mid 80s and mid 90s on Cardizem drip at 5 [facility] History I have reviewed the patient's past medical history: Yes Medical History: Reports:: Asthma, Atrial Fibrillation, Cardiomyopathy, Congestive Heart Failure, Chronic Obstructive Pulmonary Disease (COPD), Coronary Artery Disease, Diabetes Mellitus Type 2, Hyperlipidemia, Hypertension, Lung Disease Denies:: Cancer, Diabetes Mellitus Type 1, Internal Pacemaker, MRSA, Seizures *Have you ever received a pneumonia vaccine?: Yes *Have you received a flu vaccine this season?: Yes Other Medical History: Reports: Arthritis, Hypothyroidism, Thyroid Disease Other Surgeries: Yes: Cardiac Catheterization, Coronary Stent, Hysterectomy-Total, Thyroidectomy, Other. No: Pacemaker Amputation: No Fractures: No - *Social History Smoking Status: Former smoker Tobacco Type: cigarettes Alcohol Intake: never Alcohol Intake Frequency:: other Substance Use Type: denies use *Occupational Status:: retired Housing: house Household Members: family *Travel in the last 8 weeks: None Family Hx:: Non-contributory Review of Systems - Review of Systems Review of systems:: pertinent systems reviewed and negative unless documented below - *Neurologic Reports weakness Meds Home Medications Medication Instructions Recorded Confirmed Type gabapentin 400 mg capsule 400 mg PO TID 11/04/17 04/20/20 History levothyroxine 125 mcg tablet 125 mcg PO DAILY tab 11/04/17 04/20/20 History omeprazole 40 mg capsule,delayed 40 mg PO DAILY 11/04/17 04/20/20 History release ferrous sulfate 325 mg (65 mg 325 mg PO BID tab 11/05/17 04/20/20 History iron) tablet furosemide 40 mg tablet 40 mg PO BID tab 11/05/17 04/20/20 History insulin glargine 100 unit/mL 30 unit SQ HS 03/18/19 04/20/20 History subcutaneous solution Clopidogrel Bisulfate [Plavix 75mg 75 mg PO DAILY 05/27/19 04/20/20 History Tab] Digoxin 125 mcg PO DAILY 05/27/19 04/20/20 History Fluticasone/Vilanterol [Breo 2 puff IN DAILY 05/28/19 04/20/20 History Ellipta 100-25 Mcg INH] Rosuvastatin Calcium 40 mg PO HS 05/28/19 04/20/20 History Umeclidinium [place] [Incruse 1 puff IH DAILY 05/28/19 04/20/20 History Ellipta] losartan 25 mg tablet 25 mg PO DAILY 06/18/19 04/20/20 History spironolactone 25 mg tablet 25 mg PO DAILY 06/18/19 04/20/20 History oxymetazoline 0.05 % nasal spray 1 spray INTRANASAL Q12H PRN 7 Days 10/19/19 04/20/20 Rx #15 ml carbamazepine 200 mg tablet 200 mg PO DAILY tab 11/30/19 04/20/20 History metformin 850 mg tablet 850 mg PO BID tab 11/30/19 04/20/20 History Insulin NPH Hum/Reg Insulin Hm 15 unit SQ HS 04/20/20 04/20/20 History [Novolin 70-30 100 Unit/ml Vial] Insulin NPH Hum/Reg Insulin Hm 30 unit SQ DAILY 04/20/20 04/20/20 History [Novolin 70-30 100 Unit/ml Vial] carvediloL [Carvedilol 3.125mg Tab] 3.125 mg PO BID 04/20/20 04/20/20 History duloxetine 60 mg capsule,delayed 90 mg PO DAILY cap 04/20/20 04/20/20 History release diamante
--- NOTE | 2020-04-21 08:01 | HMH.PNCARD ---
Subjective Date: 04/21/20 Time: 08:02 Principal diagnosis: afib with RVR Interval history: 84 yo WF at bedside eating breakfast. Feeling better than yesterday. Telemetry shows A. fib with rate of around 100 bpm on diltiazem at 5 mg/hr currently. Breathing better today. Exam Vital signs and Labs for Last 24 Hours: Temp Pulse Resp BP Pulse Ox 98.4 F 90 18 130/80 93 L 04/21/20 00:00 04/21/20 06:34 04/21/20 06:00 04/21/20 06:00 04/21/20 06:34 Laboratory Results - last 24 hr 04/20/20 10:50: WBC 5.2, RBC 3.59 L, Hgb 11.2 L, Hct 34.1 L, MCV 95.0, MCH 31.1, MCHC 32.7, RDW 16.2, Plt Count 204, MPV 8.8, Neut % (Auto) 74.8, Lymph % (Auto) 17.8, [place] % (Auto) 5.5, Eos % (Auto) 1.5, Baso % (Auto) 0.4, Neut # (Auto) 3.9, Lymph # (Auto) 0.9, [place] # (Auto) 0.3, Eos # (Auto) 0.1, Baso # (Auto) 0.0 04/20/20 10:50: Sodium 134 L, Potassium 4.4, Chloride 98, Carbon Dioxide 25, Anion Gap 15.4 H, BUN 16, Creatinine 0.80, Estimated Creat Clear 64, Estimated GFR 69, Est GFR ( Amer) 83, Glucose 210 H, Calcium 9.3, Total Bilirubin 0.4, AST 26, ALT 21, Alkaline Phosphatase 95, Troponin I 0.04 H, Total Protein 7.1, Albumin 4.0, Globulin 3.1, Albumin/Globulin Ratio 1.3 04/20/20 10:50: NT-Pro-B Natriuret Pep 1690 H 04/20/20 10:50: Digoxin < 0.40 04/20/20 10:50: TSH 9.31 H 04/20/20 13:50: Troponin I 0.04 H 04/20/20 13:50: Lactate 1.9 04/20/20 16:21: POC Glucose 154 H 04/20/20 17:13: Troponin I 0.04 H 04/20/20 20:42: POC Glucose 149 H 04/21/20 05:31: Sodium 133 L, Potassium 3.8, Chloride 96 L, Carbon Dioxide 27, Anion Gap 13.8, BUN 17, Creatinine 0.80, Estimated Creat Clear 67, Estimated GFR 69, Est GFR ( Amer) 83, Glucose 148 H D, Calcium 8.9 04/21/20 06:12: POC Glucose 156 H I & O for Last 24 hours: Intake & Output 04/18/20 04/19/20 04/20/20 04/21/20 11:59 11:59 11:59 11:59 Intake Total 646 / 646 Output Total 2400 / 2400 Balance -1754 / -1754 Weight 205 lb 215 lb 4 oz - *Routine Respiratory Exam Present: decreased breath sounds, crackles. Absent: accessory muscle use, rales, rhonchi, wheezes - *Routine Cardiovascular Exam Present: irregularly irregular. Absent: murmur, gallop, rubs - *Routine Extremities Exam Absent: edema, calf tenderness - *Routine Neurological Exam Present: alert, oriented X3, moving all extremities Progress Note: A&P (1) Atrial fibrillation with RVR Status: Acute Current Visit: Yes (2) Elevated troponin Status: Acute Current Visit: Yes (3) SOB (shortness of breath) Status: Acute Current Visit: Yes (4) Hypothyroidism Status: Acute Current Visit: Yes (5) Elevated brain natriuretic peptide (BNP) level Status: Acute Current Visit: Yes (6) Hypertensive heart disease Status: Chronic Current Visit: No (7) Coronary arteriosclerosis Status: Chronic Current Visit: No (8) Pulmonary hypertension Status: Acute Current Visit: Yes (9) Congestive heart failure Status: Acute Current Visit: Yes (10) Diabetes Status: Acute Current Visit: Yes (11) Moderate mitral regurgitation Status: Chronic Current Visit: No (12) Moderate tricuspid regurgitation Status: Chronic Current Visit: No Assessment and Plan for All Diagnoses:: 1. A. fib with RVR, improved on IV dilitiazem. Will plan to switch to PO today. Will stop dilitiazem and switch coreg to bisoprolol for more focus on rate control and less BP drop. Continue Xarelto and digoxin. 2. CAD, clinically stable. Mild elevated troponins related to strain from A. fib RVR and CHF. On Plavix. 3. CHF with preliminary echo showing preserved LVEF with moderate MR/TR. Continue diuresis with lasix. She is on ARB and spironolactone. 1700 ml net negative output since admission. 4. pulmonary HTN 5. Hypothyroidism, on replacement therapy Further recommendations pending official echo reading. Anticipate home tomorrow.
--- NOTE | 2020-04-21 09:42 | PC.NURSE ---
Addendum entered by Emily Ronquillo RN 04/21/20 09:43: Drip stopped at 0915 Original Note: Verified w/ J KAREN Chamorro to stop cardizem gtt, no po to be given first.
[2020-04-21 13:28] LABS: POC Glucose,Bedside 334 (70-110)
[2020-04-21 16:20] LABS: POC Glucose,Bedside 255 (70-110)
--- NOTE | 2020-04-21 16:34 | PC.NURSE ---
Pt has been up to the chair the majority of the shift. Attempted to wean O2 from 1L NC but O2 drops into the 80's on every attempt, especially when sleeping. She has been afib on telemetry w/HR running 80's to 110's. Glucose was elevated at 334 and 255 on checks w/insulin administered per sliding scale. 3000ml's of urine out thus far. Urine this morning was pale yellow, this afternoon it is blood tinged. Message left for Dr Akins to inform him of this. Her appetite is excellent. No complaints verbalized. Will continue to monitor.
--- NOTE | 2020-04-21 20:10 | PC.NURSE ---
Pt's room air sat at rest = 91%.
[2020-04-21 20:26] LABS: POC Glucose,Bedside 207 (70-110)
[2020-04-22] VITALS (14 sets, daily range): BP systolic 101–146; BP diastolic 52–89; PULSE 76–112; RESP 16–30; TEMP 36.4–36.6; O2SAT 91–97; BMI 33.5
--- NOTE | 2020-04-22 04:45 | PC.NURSE ---
while resting this shift, HR has sustained 80-120 in a fib, O2 sat 83-87 on room air, 1 L placed back on, sats now maintained at 92-98. urine continues to be pink tinged, wright secured in place
[2020-04-22 05:36] LABS: POC Glucose,Bedside 191 (70-110)
[2020-04-22 05:56] LABS: Anion Gap 12.5 mEq/L (5-15); Blood Urea Nitrogen 20 mg/dl (7-17); Calcium 8.9 mg/dl (8.4-10.2); Carbon Dioxide 28 mmol/L (22.0-30.0); Chloride 98 mmol/L (98-107); Creatinine Clearance Estimated 66 mL/min (50-200); Estimated Glomerular Filt Rate 60 ml/min (>60); GFR (African American) 73 ML/MIN (>60); Glucose 194 mg/dl (74-100); Potassium 4.5 mmoL/L (3.5-5.1); Sodium 134 mmol/L (136-145)
--- NOTE | 2020-04-22 07:25 | HMH.ACPN2 ---
Internal Medicine - PN: Subj *Date: 04/22/20 *Time: 07:25 Interval history: Patient is without complaints this morning and reports breathing a little bit easier. She ambulated with physical therapy yesterday and denies any significant dyspnea on exertion. Review of her pulse rate reveals even resting her heart rate remains around 100 and sometimes above such as when it was 113 overnight around midnight. She denies chest pain. Exam Vital signs and Labs for Last 24 Hours: Temp Pulse Resp BP Pulse Ox 98 F 104 H 16 105/52 L 95 04/22/20 03:54 04/22/20 06:40 04/22/20 03:54 04/22/20 03:54 04/22/20 06:40 Laboratory Results - last 24 hr 04/21/20 10:54: POC Glucose 334 H* 04/21/20 16:14: POC Glucose 255 H 04/21/20 20:05: POC Glucose 207 H 04/22/20 05:25: Sodium 134 L, Potassium 4.5, Chloride 98, Carbon Dioxide 28, Anion Gap 12.5, BUN 20 H, Creatinine 0.90, Estimated Creat Clear 66, Estimated GFR 60, Est GFR ( Amer) 73, Glucose 194 H D, Calcium 8.9 04/22/20 05:29: POC Glucose 191 H I & O for Last 24 hours: Intake & Output 04/19/20 04/20/20 04/21/20 04/22/20 11:59 11:59 11:59 11:59 Intake Total 886 / 886 240 / 240 Output Total 4150 / 4150 3120 / 3120 Balance -3264 / -3264 -2880 / -2880 Weight 205 lb 215 lb 4 oz 213 lb 13.574 oz Narrative: Patient looks comfortable. On lung exam she does have some faint end expiratory wheezing as well as some right basilar rales although these could be due to atelectasis. Heart has an irregularly irregular rate and rhythm. Echocardiogram revealed normal ejection fraction with raise left ventricular end-diastolic pressures and increased right ventricular pressures. Assessment and Plan (1) Atrial fibrillation with RVR Current visit: Yes Status: Acute Category: Medical Code(s): I48.91 - Unspecified atrial fibrillation (2) Elevated troponin Current visit: Yes Status: Acute Category: Medical Code(s): R79.89 - Other specified abnormal findings of blood chemistry (3) SOB (shortness of breath) Current visit: Yes Status: Acute Category: Medical Code(s): R06.02 - Shortness of breath (4) Hypothyroidism Current visit: Yes Status: Acute Category: Medical Code(s): E03.9 - Hypothyroidism, unspecified (5) Elevated brain natriuretic peptide (BNP) level Current visit: Yes Status: Acute Category: Medical Code(s): R79.89 - Other specified abnormal findings of blood chemistry (6) Hypertensive heart disease Current visit: No Status: Chronic Qualifiers: Heart failure presence: without heart failure Qualified Code(s): I11.9 - Hypertensive heart disease without heart failure Category: Medical Code(s): I11.9 - Hypertensive heart disease without heart failure (7) Coronary arteriosclerosis Current visit: No Status: Chronic Category: Medical Code(s): I25.10 - Atherosclerotic heart disease of [place] coronary artery without angina pectoris (8) Pulmonary hypertension Current visit: Yes Status: Acute Category: Medical Code(s): I27.20 - Pulmonary hypertension, unspecified (9) Congestive heart failure Current visit: Yes Status: Acute Qualifiers: Heart failure type: unspecified Category: Medical Code(s): I50.9 - Heart failure, unspecified (10) Diabetes Current visit: Yes Status: Acute Category: Medical Code(s): E11.9 - Type 2 diabetes mellitus without complications (11) Moderate mitral regurgitation Current visit: No Status: Chronic Category: Medical Code(s): I34.0 - Nonrheumatic mitral (valve) insufficiency (12) Moderate tricuspid regurgitation Current visit: No Status: Chronic Category: Medical Code(s): I07.1 - Rheumatic tricuspid insufficiency - Assessment and plan all Dx Assessment and Plan for all problems:: 1. Increase bisoprolol to 10 mg daily with goal of better heart rate control and consistent pulse rate less than 100 2. Transition intravenous La
--- NOTE | 2020-04-22 10:31 | HMH.PNCARD ---
Subjective Date: 04/22/20 Time: 10:31 Principal diagnosis: afib with RVR Interval history: 84-year-old white female in bed in no acute distress. Heart rate around 90 at rest but increases to 100-110 bpm with minimal movement. Patient has put out over 5 L of fluid during her stay. Echocardiogram results: 1. Markedly enlarged left atrium, normal left ventricular size, mild concentric left ventricular hypertrophy, visually estimated ejection fraction 55% with no regional wall motion abnormality, diastolic parameters are inconclusive, Doppler evidence of raise left ventricular end-diastolic pressure. 2. Moderately enlarged right ventricle with normal contractility. 3. Thickened and calcified aortic valve without Doppler evidence of aortic stenosis or aortic insufficiency. 4. Mild mitral and tricuspid regurgitation. Calculated right ventricular systolic pressure is 47 mmHg. 5. No significant pericardial effusion noted Exam Vital signs and Labs for Last 24 Hours: Temp Pulse Resp BP Pulse Ox 97.6 F 110 H 25 H 134/89 94 L 04/22/20 08:00 04/22/20 08:26 04/22/20 08:00 04/22/20 08:00 04/22/20 08:00 Laboratory Results - last 24 hr 04/21/20 10:54: POC Glucose 334 H* 04/21/20 16:14: POC Glucose 255 H 04/21/20 20:05: POC Glucose 207 H 04/22/20 05:25: Sodium 134 L, Potassium 4.5, Chloride 98, Carbon Dioxide 28, Anion Gap 12.5, BUN 20 H, Creatinine 0.90, Estimated Creat Clear 66, Estimated GFR 60, Est GFR ( Amer) 73, Glucose 194 H D, Calcium 8.9 04/22/20 05:29: POC Glucose 191 H I & O for Last 24 hours: Intake & Output 04/19/20 04/20/20 04/21/20 04/22/20 11:59 11:59 11:59 11:59 Intake Total 886 / 886 860 / 860 Output Total 4150 / 4150 3120 / 3120 Balance -3264 / -3264 -2260 / -2260 Weight 205 lb 215 lb 4 oz 213 lb 13.574 oz - *Routine HEENT Exam Head: Present: normocephalic Eye: Present: EOMI, PERRL ENT: Present: mucous membranes moist - *Routine Respiratory Exam Present: rhonchi. Absent: accessory muscle use, rales, wheezes - *Routine Cardiovascular Exam Present: irregularly irregular. Absent: murmur, gallop, rubs - *Routine Extremities Exam Absent: edema, calf tenderness - *Routine Neurological Exam Present: alert, oriented X3, moving all extremities Progress Note: A&P (1) Atrial fibrillation with RVR Status: Acute Current Visit: Yes (2) Elevated troponin Status: Acute Current Visit: Yes (3) SOB (shortness of breath) Status: Acute Current Visit: Yes (4) Hypothyroidism Status: Acute Current Visit: Yes (5) Elevated brain natriuretic peptide (BNP) level Status: Acute Current Visit: Yes (6) Hypertensive heart disease Status: Chronic Current Visit: No (7) Coronary arteriosclerosis Status: Chronic Current Visit: No (8) Pulmonary hypertension Status: Acute Current Visit: Yes (9) Congestive heart failure Status: Acute Current Visit: Yes (10) Diabetes Status: Acute Current Visit: Yes (11) Moderate mitral regurgitation Status: Chronic Current Visit: No (12) Moderate tricuspid regurgitation Status: Chronic Current Visit: No Assessment and Plan for All Diagnoses:: 1. Diastolic congestive heart failure, improving with IV diuresis. Switching to p.o. medications today with plans for discharge home in the a.m. would recommend resuming Lasix 40 mg twice daily and spironolactone 25 mg daily upon discharge. I do not think she will need supplemental potassium at home. 2. Atrial fibrillation rapid ventricular response, improved on bisoprolol therapy. Continue digoxin 0.125 mg daily along with Xarelto but will increase to 20 mg daily based on the improved renal function. 3. COPD/pulmonary hypertension, per PCP 4. Valvular heart disease, mild to moderate 5. Diabetes mellitus, per PCP 6. CAD with history of LAD ROHAN, 2018. Continue plavix therapy. Spoke with Dr. Akins and he plans to discharge her home tomorrow.
--- NOTE | 2020-04-22 10:56 | SW/DCPLANNER ---
Addendum entered by Irina Cadena 04/22/20 13:11: PER PHYSICAL THERAPY STATED PATIENT NEEDS A ROLLING WALKER, ORDER AND PATIENT INFORMATION WAS FAXED TO [facility]....DISCHARGE IN THE AM WITH WALKER TO BE DELIVERED TO HER ROOM THIS AFTERNOON..... Original Note: PER DR CASEY, PATIENT WILL BE READY FOR A DISCHARGE OVER THE WEEKEND.... I WENT BACK AND SPOKE WITH PATIENT AND TOLD HER I WAS GOING TO SET HER UP WITH HOME HEALTH SERVICES... SHE STATED IT WAS OK AND SHE WOULD USE SOMEONE LOCALLY... I CALLED THE LOCAL [facility] AND SENT REFERRAL FOR HER TO START SERVICES ON SATURDAY.... PATIENT WAS IN AGREEMENT OF THE PLAN...
[2020-04-22 12:14] LABS: POC Glucose,Bedside 309 (70-110)
--- NOTE | 2020-04-22 13:11 | PC.NURSE ---
When walking with physical therapy patient displays unsteady gait, she reports she has had difficulty with unsteady gait for sometime. Patient would benefit from having a rolling walker for safety during ambulation.
[2020-04-22 16:18] LABS: POC Glucose,Bedside 288 (70-110)
--- NOTE | 2020-04-22 16:23 | DIET.NUTRFU ---
Nutritional assessment, IP completed by student Kenzie Funez under my direct supervision.
--- NOTE | 2020-04-22 16:37 | PC.NURSE ---
Pt is pleasant and cooperative. A&O X4. No complaints of pain or SOA. Pt complained of nausea for a brief period this AM that resolved without medication administration. F/C DC'd this shift. Urine is noted to be cloudy and reddish-brown in color. Lung sounds are diminished and faint expiratory wheezing is heard on auscultation. Pt is receiving O2 @ 1 LPM via NC with sats. >90%. No edema noted. Telemetry reveals a-fib. Pt has sat up in the chair for the majority of the shift. Pt ambulates with a stand-by assist and voids without issue. No BM this shift. FSBS results have been 309 and 288, both of which have required insulin coverage per sliding scale. 20 G peripheral IV in the RT forearm is patent and SL. VSS. Call light within reach. Will continue to monitor.
--- NOTE | 2020-04-22 19:12 | PC.NURSE ---
report given to hsaree
[2020-04-22 20:32] LABS: POC Glucose,Bedside 295 (70-110)
--- NOTE | 2020-04-22 22:39 | PC.NURSE ---
Pt's room air sat at rest = 92%
[2020-04-23] VITALS (7 sets, daily range): BP systolic 109–127; BP diastolic 65–92; PULSE 89–121; RESP 16–24; TEMP 36.5–36.8; O2SAT 85–96; BMI 33.7
--- NOTE | 2020-04-23 03:48 | PC.NURSE ---
Addendum entered by Deborah Jo RN 04/23/20 04:24: Pt is not on RA- she is on 1 L NC. RA sat in high 80's, lower 90's. Original Note: Pt has rested comfortably this shift. Pt remains in controlled afib. Pt is on RA satting at upper 90's. Call light is within reach along with all other safety measures. No complaints at this time, will continue to monitor.
[2020-04-23 05:25] LABS: POC Glucose,Bedside 224 (70-110)
--- NOTE | 2020-04-23 08:33 | HMH.DCSUM ---
General - General Admission date:: 04/20/20 Discharge date: 04/23/20 HPI HPI: 84-year-old female sent to the ER through the cardiology office yesterday after patient was hypotensive with uncontrolled atrial fibrillation in the office. Patient reported symptoms of dyspnea at rest and on exertion with worsening symptoms over the preceding 2 weeks. In the emergency department patient was in atrial fibrillation with a heart rate of 120 bpm, hypotension had resolved in the emergency department, patient had an elevated BNP as well. Chest x-ray was inconclusive for any infiltrate and a chest CT showed right middle lobe collapse but no mass. Patient was admitted on a Cardizem drip with cardiology consultation. She was also admitted with incentive spirometry for her right middle lobe collapse and continued use of her COPD medications. This morning the patient reports feeling better. She is diuresed nearly 5 L since admission. Heart rate is currently bouncing between the mid 80s and mid 90s on Cardizem drip at 5 Hospital Course Hospital Course: Patient was admitted and placed on a Cardizem drip for her atrial fibrillation with rapid ventricular response. Following morning patient was transitioned off of the drip to oral bisoprolol 5 mg. Patient's blood pressures remained acceptable. Pulse rate decreased to the 80s to low 100s. On April 22 patient's bisoprolol was increased with continued heart rate in the 80s to 100s. Patient denied palpitations. On April 23 she was discharged home and will remain on bisoprolol for her atrial fibrillation. Xarelto was increased to 20 mg due to improvement in renal function. Patient's atrial fibrillation led to exacerbation and acute on chronic diastolic congestive heart failure. She was diuresed with Lasix 40 mg IV twice daily with an excellent diuretic response and for the patient's 3-day hospitalization had a negative fluid balance of 5 L. Patient noticed improvement in shortness of breath after the first day of hospitalization. She was transitioned to oral diuretics the day before discharge. She will continue twice daily Lasix and spironolactone for her diastolic heart failure as an outpatient. Patient has underlying COPD and did not bring her home medications with her which include both Breo and Incruse. Despite the fact the patient was having an exacerbation of heart failure she did not have any significant hypoxia. However as the hospitalization progressed patient showed signs of mild COPD exacerbation with wheezing. Patient was started on duo nebs. Patient's room air sats gradually trended down to the point where she required supplemental oxygen. On the day of discharge patient's O2 sat was 85% on room air at rest. Lungs had faint wheezes and improvement in rales. Patient will be discharged home on supplemental oxygen and restart her controller medicines for COPD. Objective Vital signs: Temp Pulse Resp BP Pulse Ox 97.8 F 121 H 18 127/92 H 91 L 04/23/20 08:00 04/23/20 08:00 04/23/20 08:00 04/23/20 08:00 04/23/20 08:00 no acute distress - *Routine Respiratory Exam Present: wheezes, distant breath sounds - *Routine Cardiovascular Exam Present: irregularly irregular Results Labs on day of discharge: Labs from last 24 hours 04/23/20 04/22/20 04/22/20 05:13 20:09 15:56 POC Glucose 224 H 295 H 288 H 04/22/20 11:46 POC Glucose 309 H* Preliminary micro results at discharge 04/20/20 13:55 Blood Culture - Preliminary Blood NO GROWTH AFTER 48 HOURS 04/20/20 13:50 Blood Culture - Preliminary Blood NO GROWTH AFTER 48 HOURS DS: Diagnosis - Discharge Diagnosis (1) Atrial fibrillation with RVR Status: Acute (2) Elevated troponin Status: Acute (3) SOB (shortness of breath) Status: Acute (4) Hypothyroidism Status: Acute (5) Elevated brain natriuretic peptide (BNP) level Status: Acute (6) Hypertensive
--- NOTE | 2020-04-23 09:21 | PC.NURSE ---
Pt's room air sat at rest 85%.
--- NOTE | 2020-04-23 11:00 | HMH.PHAINT ---
DISCHARGE COUNSELING COMPLETED.
[2020-04-23 12:01] LABS: POC Glucose,Bedside 286 (70-110)
== END 2020-04-23 12:40 | disposition home or self-care (01) ==
LOC: ER 14:02 → 2ND 15:09
PROVIDERS: Admitting Provider Family Medicine; Emergency Provider Emergency Medicine; PCP Family Medicine; Visit Provider Family Medicine
DX: I48.20 Chronic atrial fibrillation, unspecified (principal); I11.0 Hypertensive heart disease with heart failure; I50.32 Chronic diastolic (congestive) heart failure; I25.10 Atherosclerotic heart disease of native coronary artery without angina pectoris; I27.20 Pulmonary hypertension, unspecified; I34.0 Nonrheumatic mitral (valve) insufficiency; E03.9 Hypothyroidism, unspecified; Z79.4 Long term (current) use of insulin; E11.9 Type 2 diabetes mellitus without complications; Z79.01 Long term (current) use of anticoagulants; Z79.899 Other long term (current) drug therapy; Z88.7 Allergy status to serum and vaccine; J44.9 Chronic obstructive pulmonary disease, unspecified
CPT/HCPCS: 36415; 71045; 71260; 80048; 80053; 80162; 82962; 83605; 83880; 84443; 84484; 85025; 87040; 93005; 93306; 94640; 94761; 96365; 96375; 97116; 97161; 97530; 99285; G0378; Q9967

== ENCOUNTER 2020-04-25 21:03 | Emergency (ER) | payer MEDICARE, SELFPAY ==
--- NOTE | 2020-04-25 20:51 | ECG_ITS ---
APPROVED REPORT Exam: Resting ECG HR:99 bpm ECG Measurements Heart Rate 99 AXES QRSd 98 QRS 90 QT 364 T 97 QTc 467 <Conclusion> Atrial fibrillation Nonspecific ST and T wave abnormality, probably digitalis effect Abnormal ECG Electronically signed by : Ernst Ramirez, 04/26/2020 13:49:41
[2020-04-25 21:03] VITALS: BP 122/102; PULSE 132; RESP 19; TEMP 36.7; O2SAT 95; BMI 28.5
--- NOTE | 2020-04-25 21:12 | XR_ITS ---
PROCEDURE: XR CHEST 2V CLINICAL HISTORY: chest pain Former smoker. COMPARISON: 02/13/2017 FINDINGS: There is diffuse bony demineralization. Increased thoracic kyphosis. No acute bony abnormalities. There is degenerative thoracolumbar spondylosis. There is a stable mild/moderate cardiomegaly. Mildly prominent peripheral pulmonary vascular markings. Again is noted increased right paratracheal and a right parahilar increased density, moderately improved since the prior exam. Widespread perihilar streaky parenchymal opacities are seen in the current exam, indicative of vascular congestion or pneumonia. There is no substantial pleural effusion or pneumothorax is seen. IMPRESSION: 1. Stable cardiomegaly. Nonspecific right paratracheal/right parahilar increased densities. Possible mild/moderate chronic diffuse vascular congestion. 2. COPD changes. 3. Osteoporosis. Increased thoracic kyphosis. Dictated by: Khris Fong 04/26/2020 08:17 Electronically signed by Khris Fong in [place] 04/26/2020 08:17
--- NOTE | 2020-04-25 21:13 | HMH.EDCP ---
ED Disposition Clinical Impression: Atypical chest pain, CHF (congestive heart failure) Disposition: Home, Self-Care Condition on Discharge: Good Instructions: DI for Atypical Chest Pain Additional Instructions: For 2 days take 2 Lasix in the morning and 1 in the evening. Please follow-up with cardiology. Referrals: Aubrey Akins MD [Primary Care Provider] - Benjamin Chamorro PA [Physician Master Pilot] - - Critical Care Critical Care Time: No Attestation: On , the high probability of a clinically significant, sudden or life threatening deterioration of the following system(s) required my full and direct attention, intervention and personal management. The time I documented below is in addition to time spent performing reported procedures but includes the following listed in this critical care notation. Medical Decision Making - Medical Records Medical records reviewed: Yes: I reviewed the patient's medical records. - Pradeep Inquiry Pt receiving controlled substance: No Vital Signs: 04/25/20 21:03 Temperature 98.1 F Temperature Source Oral Pulse Rate [Left Radial] 132 H Respiratory Rate 19 Blood Pressure [Right Arm] 122/102 H Blood Pressure Mean [Right Arm] 108 Blood Pressure Source [Right Arm] Automatic Cuff Blood Pressure Position [Right Arm] Sitting 02 Sat by Pulse Oximetry 95 Oxygen Delivery Method Room Air - Lab Data Lab results reviewed: Yes: I reviewed the patient's lab results. Lab Results 04/25/20 21:12: WBC 8.9, RBC 3.72 L, Hgb 11.5 L, Hct 34.8 L, MCV 93.7, MCH 31.0, MCHC 33.1, RDW 16.2, Plt Count 257, MPV 8.5, Neut % (Auto) 75.7, Lymph % (Auto) 14.7, [place] % (Auto) 7.9, Eos % (Auto) 1.1, Baso % (Auto) 0.5, Neut # (Auto) 6.7, Lymph # (Auto) 1.3, [place] # (Auto) 0.7, Eos # (Auto) 0.1, Baso # (Auto) 0.1 04/25/20 21:12: Sodium 130 L, Potassium 4.9, Chloride 91 L, Carbon Dioxide 28, Anion Gap 15.9 H, BUN 19 H, Creatinine 0.80, Estimated Creat Clear 64, Estimated GFR 69, Est GFR ( Amer) 83, Glucose 152 H, Calcium 9.6, Troponin I 0.03 04/25/20 21:12: NT-Pro-B Natriuret Pep 3250 H 04/26/20 00:17: Troponin I 0.03 Result diagrams: 04/25/20 21:12 04/25/20 21:12 Orders (Tests/Meds): ED MEDICATIONS Generic Name Dose Route Start Last Admin Trade Name Freq PRN Reason Stop Dose Admin Sodium Chloride 1,000 mls @ 999 mls/hr 04/25/20 21:15 Sod Chlor 0.9% 1000ml Bag IV 04/25/20 22:15 .Q1H1M EDGAR Discontinued Medications Generic Name Dose Route Start Last Admin Trade Name Freq PRN Reason Stop Dose Admin Aspirin 324 mg 04/25/20 21:13 Aspirin 81mg Chewable Tablet PO 04/25/20 21:14 ONCE ONE Methylprednisolone Sodium Succinate 125 mg 04/25/20 21:13 Solu-Medrol 125mg/2ml Vial IV 04/25/20 21:14 ONCE ONE Nitroglycerin 0.4 mg 04/25/20 21:13 Nitrostat 0.4mg Sl Tablet SL 04/25/20 21:14 ONCE ONE ORDERS Category Date Time Status XR chest 2V Stat Exams 04/25/20 21:12 Taken Troponin I Q3H Lab 04/26/20 03:15 Ordered - Radiology Data #1 Image(s): Chest Preliminary Findings: Normal/NAD - ECG Data Tracing #1 I reviewed this ECG and interpreted as documented below: Normal Sinus Rhythm: Yes Medical Decision Narrative: She had 2 troponins drawn here in the emergency department both were at 0.03 which were normal. Patient also had a normal EKG and basically a normal chest x-ray no overt CHF. Even though her BNP did come back mildly elevated at 3200 her baseline is usually around 17 100-2000. She did receive 40 mg of IV Lasix and she did have about 1200 output and she feels much better. Patient's daughter stated that they will follow-up with Dr. Bower's office in the morning. Chest Pain HPI - General Chief Complaint: Chest Pain Stated Complaint: chest pain Time Seen by Provider: 04/25/20 21:03 Mode of Arrival: Wheelchair Source of Information: Patient Limitations: No Limitations Description of Symptoms (Recalled from ER [facility]
[2020-04-25 21:54] LABS: Basophils # 0.1 K/mm3 (0-0.2); Basophils % 0.5 % (0.1-2.0); Eosinophils # 0.1 K/mm3 (0.0-0.4); Eosinophils % 1.1 % (0.1-12.0); Hematocrit 34.8 % (37.0-47.0); Hemoglobin 11.5 g/dL (12.2-16.2); Lymphocytes # 1.3 K/mm3 (0.7-4.5); Lymphocytes % 14.7 % (10-50); Mean Corpuscular HGB Conc 33.1 g/dL (31.8-35.4); Mean Corpuscular Volume 93.7 fl (81-99); Mean Platelet Volume 8.5 fl (7.4-10.4); Monocytes # 0.7 K/mm3 (0.1-1.0); Monocytes % 7.9 % (1.7-9.3); Neutrophils # 6.7 K/mm3 (1.8-7.8); Neutrophils % 75.7 % (37.0-80.0); Platelet Count 257 K/mm3 (142-424); Red Blood Count 3.72 M/mm3 (4.20-5.40); Red Cell Distribution Width 16.2 % (11.5-17.5); White Blood Count 8.9 K/mm3 (4.8-10.8)
[2020-04-25 22:02] LABS: Chloride 91 mmol/L (98-107); Potassium 4.9 mmoL/L (3.5-5.1); Sodium 130 mmol/L (136-145)
[2020-04-25 22:05] LABS: Anion Gap 15.9 mEq/L (5-15); Blood Urea Nitrogen 19 mg/dl (7-17); Calcium 9.6 mg/dl (8.4-10.2); Carbon Dioxide 28 mmol/L (22.0-30.0); Creatinine Clearance Estimated 64 mL/min (50-200); Estimated Glomerular Filt Rate 69 ml/min (>60); GFR (African American) 83 ML/MIN (>60); Glucose 152 mg/dl (74-100)
[2020-04-25 22:18] LABS: Troponin I 0.03 ng/ml (0.00-0.034)
[2020-04-25 23:10] LABS: NT Pro Brain Natriuretic Pep. 3250 pg/mL (0-450)
[2020-04-26 00:44] LABS: Troponin I 0.03 ng/ml (0.00-0.034)
[2020-04-26 01:01] VITALS: BP 132/82; PULSE 85; RESP 18; TEMP 36.8
== END 2020-04-26 01:05 | disposition home or self-care (01) ==
PROVIDERS: Emergency Provider Family Medicine; PCP Family Medicine
DX: R07.89 Other chest pain (principal); I50.23 Acute on chronic systolic (congestive) heart failure; E11.9 Type 2 diabetes mellitus without complications; I10 Essential (primary) hypertension; E78.5 Hyperlipidemia, unspecified; J44.9 Chronic obstructive pulmonary disease, unspecified; I25.10 Atherosclerotic heart disease of native coronary artery without angina pectoris; I48.20 Chronic atrial fibrillation, unspecified; Z79.899 Other long term (current) drug therapy; Z79.4 Long term (current) use of insulin; Z79.84 Long term (current) use of oral hypoglycemic drugs; Z87.891 Personal history of nicotine dependence; Z95.0 Presence of cardiac pacemaker
CPT/HCPCS: 36415; 71046; 80048; 83880; 84484; 85025; 93005; 93041; 96365; 96375; 99282; 99283

== ENCOUNTER → 2020-05-05 11:47 | Outpatient (CLI) | payer MEDICARE, SELFPAY ==
[2020-05-05 12:35] LABS: Anion Gap 16.8 mEq/L (5-15); Blood Urea Nitrogen 20 mg/dl (7-17); Calcium 9.5 mg/dl (8.4-10.2); Carbon Dioxide 30 mmol/L (22.0-30.0); Chloride 93 mmol/L (98-107); Estimated Glomerular Filt Rate 69 ml/min (>60); GFR (African American) 83 ML/MIN (>60); Glucose 151 mg/dl (74-100); Potassium 4.8 mmoL/L (3.5-5.1); Sodium 135 mmol/L (136-145)
== END ==
PROVIDERS: Visit Provider Internal Medicine Cardiovascular Disease
DX: I07.1 Rheumatic tricuspid insufficiency (principal); I11.9 Hypertensive heart disease without heart failure; I25.10 Atherosclerotic heart disease of native coronary artery without angina pectoris; I34.0 Nonrheumatic mitral (valve) insufficiency; I48.20 Chronic atrial fibrillation, unspecified; I50.9 Heart failure, unspecified; R06.00 Dyspnea, unspecified; R60.9 Edema, unspecified; R94.31 Abnormal electrocardiogram [ECG] [EKG]
CPT/HCPCS: 36415; 80048

== ENCOUNTER → 2021-05-06 11:42 | Outpatient (CLI) | payer MEDICARE, SELFPAY ==
[2021-05-06 12:13] LABS: Basophils % 0.6 % (0.1-2.0); Eosinophils # 0.1 K/mm3 (0.0-0.4); Eosinophils % 1.9 % (0.1-12.0); Hemoglobin 11.7 g/dL (12.2-16.2); Lymphocytes # 1.2 K/mm3 (0.7-4.5); Lymphocytes % 19.4 % (10-50); Mean Corpuscular HGB Conc 32.4 g/dL (31.8-35.4); Mean Corpuscular Hemoglobin 30.3 pg (27.0-31.2); Mean Corpuscular Volume 93.6 fl (81-99); Mean Platelet Volume 8.9 fl (7.4-10.4); Monocytes # 0.4 K/mm3 (0.1-1.0); Monocytes % 6.5 % (1.7-9.3); Neutrophils # 4.3 K/mm3 (1.8-7.8); Neutrophils % 71.6 % (37.0-80.0); Platelet Count 163 K/mm3 (142-424); Red Blood Count 3.85 M/mm3 (4.20-5.40); Red Cell Distribution Width 16.2 % (11.5-17.5)
[2021-05-06 13:17] LABS: Anion Gap 18.7 mEq/L (5-15); Blood Urea Nitrogen 18 mg/dl (7-17); Calcium 9.3 mg/dl (8.4-10.2); Carbon Dioxide 24 mmol/L (22.0-30.0); Chloride 98 mmol/L (98-107); Estimated Glomerular Filt Rate 53 ml/min (>60); GFR (African American) 64 ML/MIN (>60); Potassium 4.7 mmoL/L (3.5-5.1); Sodium 136 mmol/L (136-145)
[2021-05-06 13:38] LABS: Glucose 423 mg/dl (74-100)
[2021-05-06 14:13] LABS: Coronavirus 19 IgG Antibody Negative (Negative); Coronavirus 19 IgM Antibody Negative (Negative)
== END ==
PROVIDERS: Visit Provider Internal Medicine Cardiovascular Disease
DX: E66.09 Other obesity due to excess calories (principal); I20.0 Unstable angina; I48.20 Chronic atrial fibrillation, unspecified; I50.9 Heart failure, unspecified; R06.09 Other forms of dyspnea; R94.31 Abnormal electrocardiogram [ECG] [EKG]; I63.9 Cerebral infarction, unspecified; Z01.812 Encounter for preprocedural laboratory examination; Z20.822 Contact with and (suspected) exposure to COVID-19; Z68.32 Body mass index [BMI] 32.0-32.9, adult; I11.0 Hypertensive heart disease with heart failure
CPT/HCPCS: 80048; 85025; 86328

== ENCOUNTER 2021-05-08 09:13 | Day surgery (SDC) | payer MEDICARE, SELFPAY ==
[2021-05-08] VITALS (11 sets, daily range): BP systolic 109–145; BP diastolic 56–83; PULSE 67–88; RESP 18; TEMP 36.7; O2SAT 94–100; BMI 32.7
--- NOTE | 2021-05-08 07:13 | IR_ITS ---
APPROVED REPORT Patient Location: Outpatient Dean Of Admissions: ALESHIA Rdz RT (R) PROCEDURES Left heart catheterization Selective coronary angiogram Left ventriculogram Drug-eluting stent deployment to the mid LAD INDICATION Coronary disease, Crescendo angina Informed consent was obtained prior to the procedure. COMPLICATIONS NONE Estimated Blood Loss: LESS THAN 10 ML TECHNIQUE One percent lidocaine used to anesthetize the right anterior aspect of the wrist. The right radial artery was accessed via the Seldinger technique. A 6 Spanish sheath was placed in the right radial artery. 2.5 mg of verapamil, 800 mcg of nitroglycerin, 1mg Lidocaine and 5000 U Heparin were given through the arterial sheath. The trap catheter was also used to perform left heart catheterization, left ventriculogram and selective coronary angiogram. Full diagnostic angiography was not performed therefore a 6 Spanish Poppa guide catheter was used to perform left coronary artery angiography. At the end the diagnostic angiogram therapeutic heparin was administered giving a therapeutic ACT and a Choice PT extra-support wire was placed in the distal LAD. A 2.5 x 12 mm resolute Helio stent was placed in the mid LAD at 20 pat reducing the concentric 90% stenosis to 0%. YOUNG-3 flow was present before and after the procedure. After achieving excellent angiographic results the apparatus was removed the sheath was removed and hemostasis achieved using TR banding patient was transferred to the postop holding area stable condition ANGIOGRAPHIC RESULTS The left main artery Normal The left anterior descending artery Has proximal mild 10% luminal irregularities with mid vessel smooth 20% luminal irregularities followed by a focal 90% concentric stenosis. The remaining LAD is widely patent and wraps the apex The circumflex artery Is a large nondominant vessel and gives rise to a moderate sized ramus intermedius which is widely patent with mild atheromatous plaque. The circumflex artery itself is large caliber with mild 10 to 20% mid vessel stenosis The right coronary artery Is a dominant vessel and has an ostial 30% stenosis with no dampening with the guide catheter and mid vessel 20% stenoses The TURCIOS ventriculogram reveals Normal 65% The left ventricular end-diastolic pressure 20 mmHg IMPRESSION Severe LAD disease as described above Successful stenting the mid LAD severe disease reduced to 0% with 1 drug-eluting stent Elevated LVEDP Normal ejection fraction PLAN 1. Dual antiplatelet therapy 2. Cardiac rehabilitation 3. LDL less than 55 4. Treatment of diastolic dysfunction with loop diuretics fluid restriction and salt restriction in order to decrease LVEDP which will also improve symptoms and provide better coronary artery perfusion Electronically signed by : Heber Bower MD 05/08/2021 12:17:54
[2021-05-08 09:57] LABS: Coronavirus 19, PCR Not Detected (NotDetected); Influenza A, PCR Not Detected (NotDetected); Influenza B, PCR Not Detected (NotDetected)
[2021-05-08 10:05] LABS: POC Glucose,Bedside 221 (70-110)
[2021-05-08 15:07] LABS: CATHL Activated Clotting Time 217 SEC (74-125)
--- NOTE | 2021-05-08 15:28 | HMH.PHACLD ---
Sidra Tucker has received discharge medication counseling on the following medications: PATIENT IS CURRENTLY TAKING LOSARTAN 50 MG ON SAT/SAT/SAT AND 25 MG ON SAT/SAT/SAT/SAT, BISOPROLOL 5 MG DAILY, PLAVIX 75 MG DAILY, AND CRESTOR 40 MG HS. MD ADDING ASPIRIN 81 MG DAILY. MD INCREASING DOSE OF SPIRONOLACTONE FROM 25 MG DAILY TO 50 MG BID AND LASIX FROM 40 MG DAILY TO 40 MG BID AT THIS TIME. METFORMIN IS TO BE HELD UNTIL SATURDAY.
== END 2021-05-08 15:27 | disposition home or self-care (01) ==
LOC: CATHLAB 09:17
PROVIDERS: PCP Family Medicine; Visit Provider Internal Medicine
DX: E66.09 Other obesity due to excess calories (principal); I25.110 Atherosclerotic heart disease of native coronary artery with unstable angina pectoris; I48.20 Chronic atrial fibrillation, unspecified; I50.9 Heart failure, unspecified; R94.31 Abnormal electrocardiogram [ECG] [EKG]; I11.0 Hypertensive heart disease with heart failure; E11.9 Type 2 diabetes mellitus without complications; Z79.4 Long term (current) use of insulin; I34.0 Nonrheumatic mitral (valve) insufficiency; Z20.822 Contact with and (suspected) exposure to COVID-19
CPT/HCPCS: 82962; 85347; 92928; 93458; 99152; 99153; C1725; C1769; C1876; C9600; J1644; U0003

== ENCOUNTER → 2021-05-09 13:09 | Outpatient (CLI) | payer MEDICARE, SELFPAY ==
[2021-05-09 13:44] LABS: Basophils % 0.5 % (0.1-2.0); Eosinophils # 0.1 K/mm3 (0.0-0.4); Eosinophils % 1.3 % (0.1-12.0); Hematocrit 32.7 % (37.0-47.0); Hemoglobin 10.8 g/dL (12.2-16.2); Lymphocytes # 1.4 K/mm3 (0.7-4.5); Lymphocytes % 20.3 % (10-50); Mean Corpuscular Hemoglobin 30.9 pg (27.0-31.2); Mean Corpuscular Volume 93.7 fl (81-99); Mean Platelet Volume 9.2 fl (7.4-10.4); Monocytes # 0.5 K/mm3 (0.1-1.0); Monocytes % 6.6 % (1.7-9.3); Neutrophils # 4.8 K/mm3 (1.8-7.8); Neutrophils % 71.3 % (37.0-80.0); Platelet Count 194 K/mm3 (142-424); Red Blood Count 3.48 M/mm3 (4.20-5.40); Red Cell Distribution Width 16.2 % (11.5-17.5); White Blood Count 6.8 K/mm3 (4.8-10.8)
== END ==
PROVIDERS: Visit Provider Internal Medicine
DX: E66.9 Obesity, unspecified (principal); I20.0 Unstable angina; I48.20 Chronic atrial fibrillation, unspecified; I50.9 Heart failure, unspecified; R06.00 Dyspnea, unspecified; R94.31 Abnormal electrocardiogram [ECG] [EKG]; I11.0 Hypertensive heart disease with heart failure; Z68.32 Body mass index [BMI] 32.0-32.9, adult
CPT/HCPCS: 36415; 85025

== ENCOUNTER 2021-05-12 10:16 | Observation (INO) | payer MEDICARE, SELFPAY ==
[2021-05-12] VITALS (8 sets, daily range): BP systolic 105–147; BP diastolic 47–73; PULSE 68–81; RESP 18–30; TEMP 36.7–37.5; O2SAT 93–98; BMI 32.7; BMI 33.0
--- NOTE | 2021-05-12 10:27 | CT_ITS ---
PROCEDURE: CT HEAD/BRAIN WO CON CLINICAL INDICATION: AMS Altered mental status, altered level of consciousness, confusion, disorientation COMPARISON: [facility] MRI-BRAIN W/WO from 01/06/2015 TECHNIQUE: Axial images obtained. All CT scans at the facility use one or more dose reduction, viz: automated exposure control, ma/kV adjustment per patient size (including targeted exams where dose is matched to indication, i.e. head), or iterative reconstruction technique. FINDINGS: There are low-density changes in the right frontal lobe and frontal parietal junction consistent with an area subacute infarction. No midline shift or intracranial hemorrhage. There are encephalomalacia changes in the medial aspect of the right occipital lobe. There is generalized atrophy with hypoattenuation of the periventricular white matter consistent with microangiopathic changes. the calvarium has an unremarkable appearance. No mastoid effusion. No sinus air-fluid level. IMPRESSION: Low-density changes in the right frontal parietal and temporal junction with some mild edematous change consistent with subacute infarction. No midline shift or hemorrhage apparent. Dr. Adan notified of the above findings by telephone 05/12/2021 at 11 a.m. Dictated by: Johnathon Browne MD 05/12/2021 11:05 Johnathon Browne MD in [place] 05/12/2021 11:05
--- NOTE | 2021-05-12 10:28 | XR_ITS ---
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 Surgical clips are present overlying the trachea and right paratracheal region. There is cardiomegaly without failure. Chronic prominence of the right hilum consistent with overlying prominent pulmonary artery. The lungs are clear without infiltrates, suspicious nodules, or pleural effusions. No acute bony abnormalities. IMPRESSION: Chronic cardiomegaly and prominent right hilum as well as the chronic left paratracheal mass. Dictated by: Johnathon Browne MD 05/12/2021 11:07 Johnathon Browne MD in [place] 05/12/2021 11:07
--- NOTE | 2021-05-12 10:34 | PC.NURSE ---
pt to rad
--- NOTE | 2021-05-12 11:05 | CT_ITS ---
Procedure: CT ANGIO NECK CT ANGIO HEAD CLINICAL HISTORY: ams Altered mental status, altered level of consciousness, confusion, disorientation Subacute infarction of the right frontal lobe COMPARISON: CT CT ANGIO HEAD from 05/12/2021 TECHNIQUE: IV Contrast: 100ml Isovue 370 Axial images obtained with sagittal and coronal reformats. All CT scans at the facility use one or more dose reduction, viz: automated exposure control, ma/kV adjustment per patient size (including targeted exams where dose is matched to indication, i.e. head), or iterative reconstruction technique. FINDINGS: CT ANGIO NECK: Unremarkable appearing aortic arch. There is tortuosity of the great vessels. Right brachiocephalic has an unremarkable appearance. Right carotid: There is prominent tortuosity of the right common carotid artery with kinking of the proximal aspect of the right common carotid artery with approximately 50 percent narrowing at the region of the kinking. The mid distal right CCA has an unremarkable appearance. Atherosclerotic changes are present at the carotid bifurcation and proximal right ICA at the carotid bulb secondary to calcific plaque with 20 percent stenosis. At the proximal right ICA there is an area of kinking of the vessel with 50 percent narrowing at the region of the kinking. No evidence of occlusion. No significant plaque in the distal ICA. Left carotid: Tortuosity noted. Calcific plaque is present in the proximal left ICA at the carotid bulb. No significant stenosis. No significant kinking of the left carotid. Vertebrals: Mild plaque proximal right vertebral with less than 20 percent stenosis. Minimal amount of calcific plaque in the left vertebral. No significant stenosis. CT angio head: Scattered mild atheromatous changes of the cavernous portion of the ICAs. There is some minimal luminal irregularity of the right M1 segment. The vertebral basilar system has an unremarkable appearance. No evidence of middle cerebral artery thrombosis Low-density changes are once again noted in the right frontal parietal region. There is no significant luxury perfusion. This may suggest at the stroke is more acute. 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 The left lobe measures 6 by 5.4 cm. The trachea is shifted toward the right by approximately 2.3 cm. There has been a prior right thyroidectomy. Scattered small nodes are present in the neck. IMPRESSION: 1. Right-sided common carotid and internal carotid artery kinking with 50 percent stenosis at the area of kinking. This is of questionable clinical significance. 2. No aneurysm apparent. No major intracranial occlusive process evident. 3. Mild atheromatous changes of the intracranial portion of the internal carotids with some cortical regularity of the M1 segment on the right but no obvious occlusive change 4. No Frankie reperfusion apparent to the area of infarction in the right frontal region and parietal area suggesting that the infarction may be more acute than subacute. Dictated by: Johnathon Browne MD 05/12/2021 13:23 Johnathon Browne MD in [place] 05/12/2021 13:23
--- NOTE | 2021-05-12 11:07 | HMH.EDAMS ---
ED Disposition Clinical Impression: Ischemic stroke Disposition: Admitted as Observation Condition on Discharge: Good Referrals: Aubrey Akins MD [Primary Care Provider] - - Critical Care Critical Care Time: No Attestation: On 05/12/21, the high probability of a clinically significant, sudden or life threatening deterioration of the following system(s) required my full and direct attention, intervention and personal management. The time I documented below is in addition to time spent performing reported procedures but includes the following listed in this critical care notation. Medical Decision Making - Medical Records Medical records reviewed: Yes: I reviewed the patient's medical records. - Pradeep Inquiry Pt receiving controlled substance: No Vital Signs: 05/12/21 10:17 05/12/21 12:57 05/12/21 13:00 Temperature 98.1 F Temperature Source Oral Pulse Rate 72 80 Pulse Rate [Left Radial] 68 Respiratory Rate 18 20 20 Blood Pressure 108/47 L 118/56 L Blood Pressure [Left Arm] 123/66 Blood Pressure Mean 67 76 Blood Pressure Mean [Left Arm] 85 Blood Pressure Source [Left Arm] Automatic Cuff Blood Pressure Position [Left Arm] Sitting 02 Sat by Pulse Oximetry 98 98 98 Oxygen Delivery Method Room Air Room Air Room Air - Lab Data Lab Results 05/12/21 11:35: Magnesium 1.8, Troponin I 0.02, NT-Pro-B Natriuret Pep 1680 H, TSH 7.43 H 05/12/21 11:35: WBC 7.2, RBC 3.31 L, Hgb 10.2 L, Hct 30.6 L, MCV 92.5, MCH 31.0, MCHC 33.5, RDW 16.5, Plt Count 190, MPV 9.2, Neut % (Auto) 77.1, Lymph % (Auto) 14.8, [place] % (Auto) 6.6, Eos % (Auto) 1.1, Baso % (Auto) 0.4, Neut # (Auto) 5.5, Lymph # (Auto) 1.1, [place] # (Auto) 0.5, Eos # (Auto) 0.1, Baso # (Auto) 0.0 05/12/21 11:35: Sodium 132 L, Potassium 4.8, Chloride 95 L, Carbon Dioxide 29, Anion Gap 12.8, BUN 25 H, Creatinine 1.20 H, Estimated Creat Clear 53, Estimated GFR 43 L, Est GFR ( Amer) 52 L, Glucose 229 H, Calcium 9.1, Total Bilirubin 0.5, AST 29, ALT 21, Alkaline Phosphatase 97, Total Protein 7.3, Albumin 4.2, Globulin 3.1, Albumin/Globulin Ratio 1.4 Result diagrams: 05/12/21 11:35 05/12/21 11:35 Orders (Tests/Meds): ED MEDICATIONS Discontinued Medications Generic Name Dose Route Start Last Admin Trade Name Freq PRN Reason Stop Dose Admin Iopamidol 100 ml 05/12/21 12:38 05/12/21 12:39 Iopamidol-370 (76%);100ml Bottle IV 05/12/21 12:39 100 ml ONCE ONE Administration Sodium Chloride 50 ml 05/12/21 12:38 05/12/21 12:39 0.9 % Sodium Chloride 50 Ml Vial IV 05/12/21 12:39 50 ml ONCE ONE Administration Sodium Chloride 10 ml 05/12/21 12:38 05/12/21 12:39 Sodium Chloride 0.9% 10ml Syr (Rad Only) IV 05/12/21 12:39 10 ml ONCE ONE Administration ORDERS Category Date Time Status Troponin I Q3H Lab 05/12/21 13:30 Ordered Troponin I Q3H Lab 05/12/21 16:30 Ordered Urinalysis and Microscopic Stat Lab 05/12/21 10:28 Ordered Medical Decision Narrative: Female presents with new onset confusion. She was not oriented to place or time of my exam and had difficulty following exam. Vital signs otherwise stable. No evidence of cardiac or abdominal emergencies. CT head showed subacute infarct. She is outside the window for TPA. CT angios obtained as well with that did not show an acute occlusion. I did discuss the case with Dr. Akins and as she has no intervention for stroke plan to admit for symptomatic management. Blood pressure is within normal limits in the emergency department otherwise stable. Altered Mental Status HPI - General Chief Complaint: Altered Mental Status Stated Complaint: lathargic Time Seen by Provider: 05/12/21 11:00 Mode of Arrival: Wheelchair Limitations: No Limitations Description of Symptoms (Recalled from ER Triage Doc. by RN): Daughter brock states that pt has been having episodes of confusion over the past 24 hours. Advises that pt had a heart cath performed on saturday. and
--- NOTE | 2021-05-12 11:35 | ECG_ITS ---
APPROVED REPORT Exam: Resting ECG HR:72 bpm ECG Measurements Heart Rate 72 AXES QRSd 90 QRS 32 QT 362 T 54 QTc 396 Conclusion Atrial fibrillation Low voltage QRS Nonspecific T wave abnormality, probably digitalis effect Abnormal ECG Electronically signed by : Aubrey Gallardo MD 05/12/2021 16:53:36
--- NOTE | 2021-05-12 11:55 | PC.NURSE ---
JEFFREY BLACKBURN speaking with Dr. Akins
[2021-05-12 12:11] LABS: Basophils % 0.4 % (0.1-2.0); Eosinophils # 0.1 K/mm3 (0.0-0.4); Eosinophils % 1.1 % (0.1-12.0); Hematocrit 30.6 % (37.0-47.0); Hemoglobin 10.2 g/dL (12.2-16.2); Lymphocytes # 1.1 K/mm3 (0.7-4.5); Lymphocytes % 14.8 % (10-50); Mean Corpuscular HGB Conc 33.5 g/dL (31.8-35.4); Mean Corpuscular Volume 92.5 fl (81-99); Mean Platelet Volume 9.2 fl (7.4-10.4); Monocytes # 0.5 K/mm3 (0.1-1.0); Monocytes % 6.6 % (1.7-9.3); Neutrophils # 5.5 K/mm3 (1.8-7.8); Neutrophils % 77.1 % (37.0-80.0); Platelet Count 190 K/mm3 (142-424); Red Blood Count 3.31 M/mm3 (4.20-5.40); Red Cell Distribution Width 16.5 % (11.5-17.5); White Blood Count 7.2 K/mm3 (4.8-10.8)
--- NOTE | 2021-05-12 12:16 | PC.NURSE ---
rad aware of CT angio orders on pt.
[2021-05-12 12:22] LABS: Alanine Aminotransferase 21 U/L (12-78); Albumin Level 4.2 g/dl (3.5-5.0); Albumin/Globulin Ratio 1.4 (1.1-1.8); Alkaline Phosphatase 97 U/L (38-126); Anion Gap 12.8 mEq/L (5-15); Aspartate Amino Transferase 29 U/L (14-36); Bilirubin,Total 0.5 mg/dl (0.2-1.3); Blood Urea Nitrogen 25 mg/dl (7-17); Calcium 9.1 mg/dl (8.4-10.2); Carbon Dioxide 29 mmol/L (22.0-30.0); Chloride 95 mmol/L (98-107); Creatinine Clearance Estimated 53 mL/min (50-200); Estimated Glomerular Filt Rate 43 ml/min (>60); GFR (African American) 52 ML/MIN (>60); Globulin 3.1 g/dL (1.3-3.2); Glucose 229 mg/dl (74-100); Magnesium 1.8 mg/dl (1.6-2.3); Potassium 4.8 mmoL/L (3.5-5.1); Sodium 132 mmol/L (136-145); Total Protein,Serum 7.3 g/dl (6.3-8.2)
[2021-05-12 12:33] LABS: NT Pro Brain Natriuretic Pep. 1680 pg/mL (0-450)
[2021-05-12 12:36] LABS: Troponin I 0.02 ng/ml (0.00-0.034)
--- NOTE | 2021-05-12 12:46 | PC.NURSE ---
pt return from CT
[2021-05-12 12:55] LABS: Thyroid Stimulating Hormone 7.43 uIU/mL (0.465-4.68)
--- NOTE | 2021-05-12 13:10 | PC.WOUNDNOTE ---
Spoke with regarding Rad's recommendation for a liter of IVF's d/t renal function. does not wish to give IVF's at this time d/t BNP.
[2021-05-12 14:08] LABS: Coronavirus 19, PCR Not Detected (NotDetected); Influenza A, PCR Not Detected (NotDetected); Influenza B, PCR Not Detected (NotDetected)
[2021-05-12 14:29] LABS: Troponin I 0.03 ng/ml (0.00-0.034)
--- NOTE | 2021-05-12 14:29 | SW/DCPLANNER ---
PATIENT PRESENTED INTO THE ED AFTER DAUGHTER FOUND HER WITH ALTERED MENTAL STATUS.. PATIENT IS FROM HOME WHEN DAUGHTER STATED HER MOTHERS O2 WAS OFF AND ON TOP OF HER HEAD AND THIS WAS WHEN THE CONFUSION WAS NOTED.. IT APPEARS SHE HAS HAD A ISCHEMIC STROKE WITH ADDITIONAL TESTING POSSIBLE.. ONCE PATIENT IS SEEN ANY DISCHARGE PLANNING NECESSARY WILL BE DONE DIRECTED BY MD. DISPOSITION UNCERTAIN...
--- NOTE | 2021-05-12 15:42 | P.CONPHA_ITS ---
[facility] Pharmacy VTE Monitoring - Patient Demographics Admission date: 05/12/21 Report Date: 05/12/21 Time: 15:42 Allergies/Adverse Reactions: Patient Allergies Pertussis Vaccines [PERTUSSIS VACCINES] Allergy (Mild, Verified 05/09/21 11:55) SWELLING tetanus and diphtheria toxoids [TETANUS & DIPHTHERIA TOXOIDS] Allergy (Mild, Verified 05/09/21 11:55) SWELLING Tetanus Vaccines and Toxoid [TETANUS VACCINES & TOXOID] Allergy (Unknown, Verified 05/09/21 11:55) SWELLING Height: 1.7 m Weight: 94.801 kg Patient Problems: Current Active Problems Ischemic stroke (Acute) - VTE Risk Labs: VTE Related Lab Results Hgb 10.2 g/dL (12.2-16.2) L 05/12/21 11:35 Hct 30.6 % (37.0-47.0) L 05/12/21 11:35 Plt Count 190 K/mm3 (142-424) 05/12/21 11:35 BUN 25 mg/dl (7-17) H 05/12/21 11:35 Creatinine 1.20 mg/dl (0.52-1.04) H 05/12/21 11:35 Estimated Creat Clear 53 mL/min (50-200) 05/12/21 11:35 Clinical Trial Participant: No - Prophylaxis VTE Prophylaxis Ordered?: Yes Types of VTE Prophylaxis: TEDS Knee High
--- NOTE | 2021-05-12 16:53 | PC.NURSE ---
Pt. arrived to unit at this time via stretcher Pt. oriented to person, unable to tell us where she is, current month and year. stretcher noted to be wet, nurses cleaned up pt. and placed brief on pt. Nurses assisted pt. into bed in room 279. Pt. tolerated well.
--- NOTE | 2021-05-12 16:58 | PC.NURSE ---
1610 Report received from Diana Schwarz RN in ER. 1615 Report given to Jean Marie Matthews RN
--- NOTE | 2021-05-12 17:14 | HMH.HP ---
*Admission Date: 05/12/21 *Chief complaint: Confusion *History of present illness: 85-year-old female was brought to the emergency department by family after she was found with altered mental state and exhibiting odd behaviors. Patient's son first identified something was wrong when overnight he found her moving some close to the floor and then laying on the clothes as if she was lying in bed. As the suture polisher progressed patient was exhibiting odd behaviors and not acting like herself. No hallucinations were visualized. Patient cannot hold conversation. She cannot answer questions appropriately. Initially family had decided to schedule an outpatient appointment but as the morning progressed and patient's symptoms were not improving she was brought to the emergency department. Work-up in the emergency department revealed a subacute right fronto parietal stroke. Because the patient was outside the window for TPA decision was made to admit the patient for her stroke. At the time of my interview with the patient there was no family present. Patient knows she is in the hospital. She does not recall that she has had a stroke and believes she is in the hospital because she needs a heart catheterization. Patient did have a heart catheterization 3 days prior to this admission with stenting of the LAD. She claims she is short of breath. She denies pain. [facility] History I have reviewed the patient's past medical history: Yes Medical History: Reports:: Asthma, Atrial Fibrillation, Cardiomyopathy, Congestive Heart Failure, Chronic Obstructive Pulmonary Disease (COPD), Coronary Artery Disease, Hyperlipidemia, Hypertension, Lung Disease Denies:: Cancer, Diabetes Mellitus Type 1, Diabetes Mellitus Type 2, Internal Pacemaker, MRSA, Seizures *Have you ever received a pneumonia vaccine?: Yes *Have you received a flu vaccine this season?: Yes Other Medical History: Reports: Arthritis, Hypothyroidism, Thyroid Disease Other Surgeries: Yes: Cardiac Catheterization, Coronary Stent, Hysterectomy-Total, Hysterectomy-Partial, Thyroidectomy, Other. No: Pacemaker Amputation: No Fractures: No - *Social History Smoking Status: Former smoker Tobacco Type: cigarettes Alcohol Intake: never Alcohol Intake Frequency:: other Substance Use Type: denies use *Occupational Status:: other Housing: house Household Members: family *Travel in the last 8 weeks: None Family Hx:: Diabetes, Stroke, Heart Attack, Hypertension, Hyperlipidemia Review of Systems - Review of Systems Review of systems:: unable to obtain - *Neurologic Denies unsteadiness, Denies dizziness, Denies headache(s), Denies numbness Meds Home Medications Medication Instructions Recorded Confirmed Type gabapentin 400 mg capsule 400 mg PO TID 11/04/17 05/09/21 History levothyroxine 125 mcg tablet 125 mcg PO DAILY tab 11/04/17 05/09/21 History omeprazole 40 mg capsule,delayed 40 mg PO DAILY 11/04/17 05/09/21 History release ferrous sulfate 325 mg (65 mg 325 mg PO BID tab 11/05/17 05/09/21 History iron) tablet Clopidogrel Bisulfate [Plavix 75mg 75 mg PO DAILY 05/27/19 05/09/21 History Tab] Digoxin 125 mcg PO DAILY 05/27/19 05/09/21 History Fluticasone/Vilanterol [Breo 2 puff IN DAILY 05/28/19 05/09/21 History Ellipta 100-25 Mcg INH] Rosuvastatin Calcium 40 mg PO HS 05/28/19 05/09/21 History oxymetazoline 0.05 % nasal spray 1 spray INTRANASAL Q12H PRN 7 Days 10/19/19 05/09/21 Rx #15 ml carbamazepine 200 mg tablet 200 mg PO DAILY tab 11/30/19 05/09/21 History metformin 850 mg tablet 850 mg PO BID tab 11/30/19 05/09/21 History Insulin NPH Hum/Reg Insulin Hm 15 unit SQ HS 04/20/20 05/09/21 History [Novolin 70-30 100 Unit/ml Vial] Insulin NPH Hum/Reg Insulin Hm 30 unit SQ DAILY 04/20/20 05/09/21 History [Novolin 70-30 100 Unit/ml Vial] duloxetine 60 mg capsule,delayed 90 mg PO DAILY cap 04/20/20 05/09/21 History release duloxetine 30 mg capsule,delayed 30 mg PO DAILY
[2021-05-12 17:28] LABS: Troponin I 0.03 ng/ml (0.00-0.034)
--- NOTE | 2021-05-12 18:03 | PC.NURSE ---
Spoke with Betsy BATEMAN, Regarding need for home medication list, and PMH. Betsy states i am on my way there now Nurse instructed Betsy on how to get to unit and use telephone to call back. Betsy v/u. Nurse awaiting Betsy arrival for admission documentation as pt. is confused and unable to accurately given PMH.
--- NOTE | 2021-05-12 18:15 | PC.NURSE ---
Bed alarm sounding, staff x3 to room. Pt. sitting on edge of bed, Pt reports I need to go to the bathroom BSC at bedside, nurses x3 attempted to help pt. to BSC. Pt. unable to stand with 3 assist. brief noted to be wet. New brief in place. Pt. cleaned up and pulled up in bed, Call light within reach, will continue to monitor.
[2021-05-13] VITALS (8 sets, daily range): BP systolic 115–139; BP diastolic 68–86; PULSE 64–93; RESP 16–18; TEMP 36.8–37.9; O2SAT 90–98; BMI 32.7
[2021-05-13 00:01] LABS: POC Glucose,Bedside 146 (70-110)
--- NOTE | 2021-05-13 02:13 | PC.NURSE ---
NOTIFIED ABOUT PT HAVING A TEMP OF 100.3,IT WAS 99.5 AT BEGINNING OF SHIFT AND THEN AROUND MIDNIGHT IT WAS 99.9,PT WAS GIVEN TYLENOL AT 0022 AND THEN AT 0130 IT WAS 99.8,NOW IT IS 100.3,ORDERS FOR UA WITH CULTURE,CBC,AND BLOOD CULTURE X2.I ASKED ABOUT SOME MOTRIN AND HE SAID NOT IF SHE IS NOT HURTING,TOLD HIM SHE HAD A GARCIA AND THE TYLENOL TOOK CARE OF IT.
--- NOTE | 2021-05-13 02:30 | PC.NURSE ---
PT HAS BEEN USING A BRIEF,UA WAS ORDERED IN ER AND ONE HAD NOT BEEN GOTTEN,IN AND OUT CATH PT AND WAS ABLE TO OBTAIN 400ML DARK YELLOW URINE,PT TOLERATED WELL
[2021-05-13 02:48] LABS: Microscopic, Urine URINE MICROSCOPIC (MICROSCOPIC)
[2021-05-13 03:01] LABS: Appearance,Urine CLEAR (Clear); Bilirubin,Urine Negative (Negative); Blood, Urine Negative (Negative); Color,Urine YELLOW (Yellow); Glucose,Urine (UA) Negative (Negative); Ketones,Urine Negative (Negative); Leukocyte Esterase,Urine Negative (Negative); Nitrate,Urine Negative (Negative); Protein,Urine Negative (Negative); Specific Gravity, Urine 1.015 (1.005-1.030); Urobilinogen,Urine 0.2 EU/dl (0.2)
[2021-05-13 03:03] LABS: Basophils % 0.3 % (0.1-2.0); Eosinophils # 0.1 K/mm3 (0.0-0.4); Eosinophils % 0.9 % (0.1-12.0); Lymphocytes # 1.5 K/mm3 (0.7-4.5); Lymphocytes % 17.6 % (10-50); Mean Corpuscular HGB Conc 33.5 g/dL (31.8-35.4); Mean Corpuscular Hemoglobin 30.9 pg (27.0-31.2); Mean Corpuscular Volume 92.1 fl (81-99); Monocytes # 0.7 K/mm3 (0.1-1.0); Monocytes % 8.2 % (1.7-9.3); Neutrophils # 6.3 K/mm3 (1.8-7.8); Neutrophils % 72.9 % (37.0-80.0); Platelet Count 196 K/mm3 (142-424); Red Blood Count 3.25 M/mm3 (4.20-5.40); Red Cell Distribution Width 16.6 % (11.5-17.5); White Blood Count 8.6 K/mm3 (4.8-10.8)
[2021-05-13 03:06] LABS: Anion Gap 11.9 mEq/L (5-15); Blood Urea Nitrogen 22 mg/dl (7-17); Calcium 9.1 mg/dl (8.4-10.2); Carbon Dioxide 29 mmol/L (22.0-30.0); Chloride 98 mmol/L (98-107); Chol/HDL Ratio 5.2 (1-3.5); Cholesterol 152 mg/dl (140-200); Creatinine Clearance Estimated 54 mL/min (50-200); Estimated Glomerular Filt Rate 43 ml/min (>60); GFR (African American) 52 ML/MIN (>60); HDL Cholesterol 29 mg/dl (40-60); Magnesium 1.8 mg/dl (1.6-2.3); Phosphorous 3.2 mg/dl (2.5-4.5); Potassium 4.9 mmoL/L (3.5-5.1); Sodium 134 mmol/L (136-145); Triglycerides 377 mg/dl (30-150); VLDL Cholesterol 75 mg/dL (0-40)
[2021-05-13 03:13] LABS: Amorphous Sediment,Urine Trace /lpf; WBC,Urine Occasional #/hpf (0-3)
[2021-05-13 03:14] LABS: Hematocrit 29.9 % (37.0-47.0)
[2021-05-13 03:19] LABS: Direct LDL Cholesterol 57.85 mg/dL (100-129)
[2021-05-13 03:21] LABS: Glucose 171 mg/dl (74-100)
--- NOTE | 2021-05-13 05:55 | PC.NURSE ---
PT HAS BEEN CONFUSED TONIGHT,ALERT TO PERSON,AT TIMES REPORTS SHE IS AT THE WAREHOUSE.TEMP ELEVATED MUCH 100.3,HAS BEEN GIVEN TYLENOL TONIGHT AND THE LOWEST IT HAS BEEN WAS 99.4.UA WAS OBTAINED ALONG WITH A CBC AND BLOOD CULTURE PER ORDERS CBC AND UA WAS OK.BRIUSING REMAINS ON PT RIGHT BREAST AND LEFT HIP,PT HAD A HEART CATH DONE ON SATURDAY.PT SIGNAL CONSTRUCTOR STRONGER ON RIGHT THAN LEFT,WHEN ASKED TO MOVE HER LEFT ARM SHE DOES NOT MOVE IT,BUT THEN YOU NOTICE HER MOVE IT ACROSS HER CHEST
[2021-05-13 07:22] LABS: POC Glucose,Bedside 197 (70-110)
--- NOTE | 2021-05-13 08:31 | HMH.ACPN2 ---
Internal Medicine - PN: Subj *Date: 05/13/21 *Time: 08:31 Interval history: No acute events overnight. No change in patient's condition. She did have a low-grade fever earlier this morning with temperature of 100.3. Vtbidmmd-ja-nea is at bedside this morning. She provides some additional history on the patient's course. Xxfzybhv-[id number] first suspected something was wrong on Saturday evening. The patient was not behaving as she normally does. This progressed into and ultimately into Saturday when she was brought to the emergency department. The daughter had monitored her blood sugar at home and there was no hypoglycemia. Trjdxdtp-zo-lbg had also checked her vital signs at home with pulse rate being in a normal range and normal oxygen saturations. This morning the patient does not really respond to questions. She is able to speak but usually her responses are unrelated to the questions asked Exam Vital signs and Labs for Last 24 Hours: Temp Pulse Resp BP Pulse Ox 98.3 F 64 18 127/74 90 L 05/13/21 08:00 05/13/21 08:00 05/13/21 08:00 05/13/21 08:00 05/13/21 08:00 Laboratory Results - last 24 hr 05/12/21 11:35: Magnesium 1.8, Troponin I 0.02, NT-Pro-B Natriuret Pep 1680 H, TSH 7.43 H 05/12/21 11:35: WBC 7.2, RBC 3.31 L, Hgb 10.2 L, Hct 30.6 L, MCV 92.5, MCH 31.0, MCHC 33.5, RDW 16.5, Plt Count 190, MPV 9.2, Neut % (Auto) 77.1, Lymph % (Auto) 14.8, [place] % (Auto) 6.6, Eos % (Auto) 1.1, Baso % (Auto) 0.4, Neut # (Auto) 5.5, Lymph # (Auto) 1.1, [place] # (Auto) 0.5, Eos # (Auto) 0.1, Baso # (Auto) 0.0 05/12/21 11:35: Sodium 132 L, Potassium 4.8, Chloride 95 L, Carbon Dioxide 29, Anion Gap 12.8, BUN 25 H, Creatinine 1.20 H, Estimated Creat Clear 53, Estimated GFR 43 L, Est GFR ( Amer) 52 L, Glucose 229 H, Calcium 9.1, Total Bilirubin 0.5, AST 29, ALT 21, Alkaline Phosphatase 97, Total Protein 7.3, Albumin 4.2, Globulin 3.1, Albumin/Globulin Ratio 1.4 05/12/21 13:40: Troponin I 0.03 05/12/21 14:02: SARS-CoV-2 (PCR) Not detected, Influenza A Untype (PCR) Not detected, Influenza Type B (PCR) Not detected 05/12/21 16:30: Troponin I 0.03 05/12/21 21:47: POC Glucose 146 H 05/13/21 02:30: Urine Color Yellow, Urine Appearance Clear, Urine pH 6.0, Ur Specific [place] 1.015, Urine Protein Negative, Urine Glucose (UA) Negative, Urine Ketones Negative, Urine Blood Negative, Urine Nitrate Negative, Urine Bilirubin Negative, Urine Urobilinogen 0.2, Ur Leukocyte Esterase Negative, Urine WBC Occasional, Amorphous Sediment Trace 05/13/21 02:30: Sodium 134 L, Potassium 4.9, Chloride 98, Carbon Dioxide 29, Anion Gap 11.9, BUN 22 H, Creatinine 1.20 H, Estimated Creat Clear 54, Estimated GFR 43 L, Est GFR ( Amer) 52 L, Glucose 171 H D, Calcium 9.1, Phosphorus 3.2, Magnesium 1.8, Triglycerides 377 H, Cholesterol 152, LDL Cholesterol Direct 57.85 L, VLDL Cholesterol 75 H, HDL Cholesterol 29 L, Cholesterol/HDL Ratio 5.2 H 05/13/21 02:30: WBC 8.6, RBC 3.25 L, Hgb 10.0 L, Hct 29.9 L, MCV 92.1, MCH 30.9, MCHC 33.5, RDW 16.6, Plt Count 196, MPV 9.0, Neut % (Auto) 72.9, Lymph % (Auto) 17.6, [place] % (Auto) 8.2, Eos % (Auto) 0.9, Baso % (Auto) 0.3, Neut # (Auto) 6.3, Lymph # (Auto) 1.5, [place] # (Auto) 0.7, Eos # (Auto) 0.1, Baso # (Auto) 0.0 05/13/21 05:41: POC Glucose 197 H I & O for Last 24 hours: Intake & Output 05/10/21 05/11/21 05/12/21 05/13/21 11:59 11:59 11:59 11:59 Intake Total 0 / 0 Output Total 400 / 400 Balance -400 / -400 Weight 209 lb 208 lb 6 oz - Constitutional no acute distress - *Routine Respiratory Exam Present: CTA bilaterally - *Routine Cardiovascular Exam Present: tachycardia, irregularly irregular - *Routine Neurological Exam Present: motor deficit (Unable to move the left hip and knee), altered mental status. Absent: fasciculations, facial asymmetry Assessment and Plan (1) Ischemic stroke Status: Acute Category: Medical Code(s): I63.9 - Cerebral infarction, unspecified (2) Atrial
--- NOTE | 2021-05-13 12:02 | HMH.PTEV ---
Physical Therapy Evaluation Rehab PT IP Evaluation Start: 05/13/21 08:20 Freq: ONCE Status: Active Protocol: Document 05/13/21 11:35 [email or web address] (Rec: 05/13/21 12:02 [email or web address] [id number]) Subjective/History History History This is the initial inpatient Physical Therapy evaluation for Sidra Tucker. Pt. is a 85 year old female who was admitted to [facility] on for confusion. Upon examining Physician's note pt. was admitted to [facility] by family d/t pt.'s odd behavior and altered mental status. Post testing and work up ED revealed a subacute right fronto parietal stroke. Upon my evaluation pt. was alone with no family members by bedside. Pt. was unale to answer my questions nor hold a conversation via poor historian. Pt.'s nurse had communicated to me she had been resting all morning and that she would c/o of having knee P!. However, pt. did answer yes to using ADs w/ ADLs @ home, but also states living alone prior to admittance. Subjective Subjective Pt. supine in hospital bed upon entering room. Pt. presents as restless, confused , and wandering upon initial examination. Pt. unable to respond to questions prompted by P.T., exhibited spontaneous speech patterns w/ no intent. Pt. presents as willing to participate in P.T., but requires max verbal/tactile cues for specific activity at hand. Mod A during bed mobility d/t constant cues and assistance w/ BLEs. Mod A during ambulation d/t vocalized knee P! and pt. wandering at times. Otherwise, pt. participated in all
[2021-05-13 12:12] LABS: POC Glucose,Bedside 205 (70-110)
--- NOTE | 2021-05-13 16:30 | HMH.SLDYSPHA ---
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 Recommendations PHYSICIAN CERTIFICATION: The specified therapy services are required, authorized, and reviewed every 30 days. Diet Recommendations Mechanical Soft Liquid Type Recommendations Normal/Thin SL Swallow Guidelines Assist w/all meals,Standard Aspiration Prec.,Chk mough for pocketing Crush Meds Crush all meds Dysphagia Swallow Precautions/Strategies Sitting Upright (90 deg), Liquids from Straw,Small Bites and Sips,Alternate Liquids/ Solids Plan Pt/Guardian verbally ack understanding Yes: RN and notified of dx/prognosis/goals G -code Required No Speech & Language HPI History Present Illness Is this evaluation r/t stroke? Yes Language Primary Language Mal[place]ian General Information General Current Food Consistancy Mechanical Soft,Thin Liquids Dentition Edentulous Oxygen Status Nasal Cannula Facial Symmetry Asymmetrical Patient Orientation Person Ability to Follow Directions Fair Communication Ability Moderate Impairment Dysphagia:Food Presentation Evaluation Food Type Pureed,Mechanical Soft,Liquid, Pudding Normal/Thin Liquid Response Clears throat Dysphagia Evaluation Summary Ms. Tucker was given the following consistencies: thins via straw, pudding, pureed, and mechanical soft. Regular diet was not attempted due to lack of dentition. Ms. Tucker did exhibit a natural groan almost a throat clear at times with thin liquids. At this time, it is recommended that Ms. Tucker be placed on mechanical soft diet with ground meats with sauce/gravy and thin liquids via straw. It is recommended she be
[2021-05-13 18:30] LABS: POC Glucose,Bedside 270 (70-110)
--- NOTE | 2021-05-13 19:51 | PC.NURSE ---
VSS. Pt remains on [address] did see pt today. CB in reach. Pt has been turned and repositioned.
[2021-05-13 22:04] LABS: POC Glucose,Bedside 222 (70-110)
[2021-05-14 04:00] VITALS: BP 150/78; PULSE 80; RESP 18; TEMP 37.1; O2SAT 98
[2021-05-14 05:15] VITALS: BMI 32.2
[2021-05-14 06:45] LABS: Basophils % 0.4 % (0.1-2.0); Eosinophils # 0.1 K/mm3 (0.0-0.4); Eosinophils % 0.7 % (0.1-12.0); Hematocrit 35.5 % (37.0-47.0); Hemoglobin 11.7 g/dL (12.2-16.2); Lymphocytes # 1.3 K/mm3 (0.7-4.5); Mean Corpuscular HGB Conc 32.9 g/dL (31.8-35.4); Mean Platelet Volume 8.7 fl (7.4-10.4); Monocytes # 0.8 K/mm3 (0.1-1.0); Monocytes % 8.5 % (1.7-9.3); Neutrophils # 6.8 K/mm3 (1.8-7.8); Neutrophils % 76.5 % (37.0-80.0); Platelet Count 214 K/mm3 (142-424); Red Blood Count 3.77 M/mm3 (4.20-5.40); Red Cell Distribution Width 16.5 % (11.5-17.5); White Blood Count 8.9 K/mm3 (4.8-10.8)
[2021-05-14 06:48] LABS: POC Glucose,Bedside 270 (70-110)
[2021-05-14 07:16] LABS: Anion Gap 18.5 mEq/L (5-15); Blood Urea Nitrogen 18 mg/dl (7-17); Calcium 9.1 mg/dl (8.4-10.2); Carbon Dioxide 26 mmol/L (22.0-30.0); Chloride 94 mmol/L (98-107); Creatinine Clearance Estimated 63 mL/min (50-200); Estimated Glomerular Filt Rate 53 ml/min (>60); GFR (African American) 64 ML/MIN (>60); Glucose 249 mg/dl (74-100); Potassium 4.5 mmoL/L (3.5-5.1); Sodium 134 mmol/L (136-145)
[2021-05-14 08:00] VITALS: BP 161/86; PULSE 100; RESP 22; TEMP 36.8; O2SAT 98
--- NOTE | 2021-05-14 08:10 | HMH.ACPN2 ---
Internal Medicine - PN: Subj *Date: 05/14/21 *Time: 08:10 Interval history: No acute events overnight. Patient had speech eval yesterday and has been placed on mechanical soft diet. Patient had PT eval yesterday and was able to ambulate with assistance and use of walker. SNF has been recommended. This morning the patient struggles to answer questions. She claims to be in pain but cannot identify the source. Exam Vital signs and Labs for Last 24 Hours: Temp Pulse Resp BP Pulse Ox 98.8 F 80 18 150/78 H 98 05/14/21 04:00 05/14/21 04:00 05/14/21 04:00 05/14/21 04:00 05/14/21 04:00 Laboratory Results - last 24 hr 05/13/21 11:45: POC Glucose 205 H 05/13/21 18:15: POC Glucose 270 H 05/13/21 21:56: POC Glucose 222 H 05/14/21 06:20: WBC 8.9, RBC 3.77 L, Hgb 11.7 L, Hct 35.5 L, MCV 94.0, MCH 31.0, MCHC 32.9, RDW 16.5, Plt Count 214, MPV 8.7, Neut % (Auto) 76.5, Lymph % (Auto) 14.0, [place] % (Auto) 8.5, Eos % (Auto) 0.7, Baso % (Auto) 0.4, Neut # (Auto) 6.8, Lymph # (Auto) 1.3, [place] # (Auto) 0.8, Eos # (Auto) 0.1, Baso # (Auto) 0.0 05/14/21 06:20: Sodium 134 L, Potassium 4.5, Chloride 94 L, Carbon Dioxide 26, Anion Gap 18.5 H, BUN 18 H, Creatinine 1.00, Estimated Creat Clear 63, Estimated GFR 53 L, Est GFR ( Amer) 64 D, Glucose 249 H, Calcium 9.1 05/14/21 06:24: POC Glucose 270 H I & O for Last 24 hours: Intake & Output 05/11/21 05/12/21 05/13/21 05/14/21 11:59 11:59 11:59 11:59 Intake Total 0 / 0 600 / 600 Output Total 400 / 400 Balance -400 / -400 600 / 600 Weight 209 lb 208 lb 6 oz 205 lb 6 oz - Constitutional no acute distress - *Routine Respiratory Exam Present: CTA bilaterally - *Routine Cardiovascular Exam Present: RRR - *Routine Abdominal Exam Present: soft, normoactive bowel sounds. Absent: tenderness - *Routine Neurological Exam Present: motor deficit (Decreased movement of left arm and leg), altered mental status (Inability to follow commands), vision grossly intact, hearing grossly intact. Absent: sensory deficit Assessment and Plan (1) Ischemic stroke Status: Acute Category: Medical Code(s): I63.9 - Cerebral infarction, unspecified (2) Atrial fibrillation with controlled ventricular response Status: Acute Category: Medical Code(s): I48.91 - Unspecified atrial fibrillation (3) Hypertensive heart disease Status: Chronic Qualifiers: Heart failure presence: without heart failure Qualified Code(s): I11.9 - Hypertensive heart disease without heart failure Category: Medical Code(s): I11.9 - Hypertensive heart disease without heart failure (4) Type 2 diabetes mellitus with hyperglycemia, with long-term current use of insulin Status: Acute Category: Medical Code(s): E11.65 - Type 2 diabetes mellitus with hyperglycemia; Z79.4 - MCFP (current) use of insulin (5) Moderate COPD (chronic obstructive pulmonary disease) Status: Acute Category: Medical Code(s): J44.9 - Chronic obstructive pulmonary disease, unspecified (6) Coronary artery disease Status: Chronic Qualifiers: Coronary Disease-Associated Artery/Lesion type: [place] artery [place] vs. transplanted heart: [place] heart Associated angina: without angina Qualified Code(s): I25.10 - Atherosclerotic heart disease of [place] coronary artery without angina pectoris Category: Medical Code(s): I25.10 - Atherosclerotic heart disease of [place] coronary artery without angina pectoris - Assessment and plan all Dx Assessment and Plan for all problems:: Patient is stable. Patient would best be served by intermediate facility for rehabilitation. Patient's [id number]-cbj who is her POA has expressed concern however about access to the patient in a facility due to the current COVID-19 pandemic.
[2021-05-14 12:55] LABS: POC Glucose,Bedside 229 (70-110)
[2021-05-14 16:00] VITALS: BP 155/70; PULSE 100; RESP 20; TEMP 36.8; O2SAT 98
[2021-05-14 18:37] LABS: POC Glucose,Bedside 280 (70-110)
--- NOTE | 2021-05-14 18:56 | PC.NURSE ---
Pt is alert to self. RR even and unlabored. 2 L 02 in use. Pt has had 2 lg bm's this shift. Has ambulated to rr w/ walker x 2 this shift. VSS. Bed alarm in use.
[2021-05-14 20:00] VITALS: O2SAT 96
[2021-05-14 21:00] VITALS: BP 119/84; PULSE 98; RESP 20; TEMP 36.8; O2SAT 96
[2021-05-14 22:14] LABS: POC Glucose,Bedside 263 (70-110)
[2021-05-15 04:00] VITALS: BP 121/68; PULSE 68; RESP 20; TEMP 37.1; O2SAT 94
[2021-05-15 04:48] VITALS: BMI 32.0
--- NOTE | 2021-05-15 04:53 | PC.NURSE ---
Patient has had uneventful night; no s/s of acute distress noted, call light within reach, bed at lowest level for safety; will continue to monitor.
[2021-05-15 06:03] LABS: Basophils % 0.4 % (0.1-2.0); Eosinophils # 0.1 K/mm3 (0.0-0.4); Eosinophils % 0.8 % (0.1-12.0); Hematocrit 40.5 % (37.0-47.0); Lymphocytes # 1.2 K/mm3 (0.7-4.5); Lymphocytes % 17.6 % (10-50); Mean Corpuscular HGB Conc 32.7 g/dL (31.8-35.4); Mean Corpuscular Hemoglobin 30.4 pg (27.0-31.2); Mean Corpuscular Volume 92.9 fl (81-99); Mean Platelet Volume 8.8 fl (7.4-10.4); Monocytes # 0.8 K/mm3 (0.1-1.0); Monocytes % 12.3 % (1.7-9.3); Neutrophils # 4.5 K/mm3 (1.8-7.8); Neutrophils % 68.8 % (37.0-80.0); Platelet Count 229 K/mm3 (142-424); Red Blood Count 4.36 M/mm3 (4.20-5.40); Red Cell Distribution Width 16.5 % (11.5-17.5); White Blood Count 6.5 K/mm3 (4.8-10.8)
[2021-05-15 06:04] LABS: Hemoglobin 13.2 g/dL (12.2-16.2)
[2021-05-15 06:32] LABS: Chloride 97 mmol/L (98-107)
[2021-05-15 06:33] LABS: Potassium 4.4 mmoL/L (3.5-5.1); Sodium 135 mmol/L (136-145)
[2021-05-15 06:34] LABS: POC Glucose,Bedside 224 (70-110)
[2021-05-15 06:35] LABS: Blood Urea Nitrogen 20 mg/dl (7-17); Creatinine Clearance Estimated 62 mL/min (50-200); Estimated Glomerular Filt Rate 60 ml/min (>60); GFR (African American) 72 ML/MIN (>60)
[2021-05-15 06:36] LABS: Anion Gap 15.4 mEq/L (5-15); Calcium 9.3 mg/dl (8.4-10.2); Carbon Dioxide 27 mmol/L (22.0-30.0); Glucose 222 mg/dl (74-100)
--- NOTE | 2021-05-15 07:19 | HMH.ACPN2 ---
Internal Medicine - PN: Subj *Date: 05/15/21 *Time: 07:19 Interval history: No acute events over the last 24 hours. Nursing staff is reported patient is oriented to person. She is able to ambulate with assistance. She still struggles with following commands. Plvkyell-qs-pnw is at bedside this morning and reports patient was able to eat sitting up on the side of the bed yesterday. There were no witnessed episodes of choking. Exam Vital signs and Labs for Last 24 Hours: Temp Pulse Resp BP Pulse Ox 98.7 F 68 20 121/68 94 L 05/15/21 04:00 05/15/21 04:00 05/15/21 04:00 05/15/21 04:00 05/15/21 04:00 Laboratory Results - last 24 hr 05/14/21 06:20: Sodium 134 L, Potassium 4.5, Chloride 94 L, Carbon Dioxide 26, Anion Gap 18.5 H, BUN 18 H, Creatinine 1.00, Estimated Creat Clear 63, Estimated GFR 53 L, Est GFR ( Amer) 64 D, Glucose 249 H, Calcium 9.1 05/14/21 12:29: POC Glucose 229 H 05/14/21 17:13: POC Glucose 280 H 05/14/21 22:06: POC Glucose 263 H 05/15/21 05:08: WBC 6.5 D, RBC 4.36, Hgb 13.2 D, Hct 40.5, MCV 92.9, MCH 30.4, MCHC 32.7, RDW 16.5, Plt Count 229, MPV 8.8, Neut % (Auto) 68.8, Lymph % (Auto) 17.6, [place] % (Auto) 12.3 H, Eos % (Auto) 0.8, Baso % (Auto) 0.4, Neut # (Auto) 4.5, Lymph # (Auto) 1.2, [place] # (Auto) 0.8, Eos # (Auto) 0.1, Baso # (Auto) 0.0 05/15/21 05:08: Sodium 135 L, Potassium 4.4, Chloride 97 L, Carbon Dioxide 27, Anion Gap 15.4 H, BUN 20 H, Creatinine 0.90, Estimated Creat Clear 62, Estimated GFR 60, Est GFR ( Amer) 72, Glucose 222 H, Calcium 9.3 05/15/21 06:06: POC Glucose 224 H I & O for Last 24 hours: Intake & Output 05/12/21 05/13/21 05/14/21 05/15/21 11:59 11:59 11:59 11:59 Intake Total 0 / 0 840 / 840 360 / 360 Output Total 400 / 400 Balance -400 / -400 840 / 840 360 / 360 Weight 209 lb 208 lb 6 oz 205 lb 6 oz 204 lb Microbiology Reports for the Last 24 Hours: Microbiology 05/13/21 02:30 Blood Blood Culture - Preliminary NO GROWTH AFTER 48 HOURS 05/13/21 02:30 Blood Blood Culture - Preliminary NO GROWTH AFTER 48 HOURS - Constitutional no acute distress Comments: Patient is laying in bed turned to the right. - *Routine HEENT Exam Head: Present: normocephalic Eye: Present: EOMI, PERRL ENT: Present: mucous membranes moist - *Routine Respiratory Exam Present: CTA bilaterally - *Routine Cardiovascular Exam Present: irregularly irregular - *Routine Abdominal Exam Present: soft, normoactive bowel sounds. Absent: tenderness - *Routine Extremities Exam Present: edema - *Routine Neurological Exam Present: motor deficit, plantar reflex, altered mental status, vision grossly intact, hearing grossly intact. Absent: tremors Patient is laying in bed. She cannot move the left arm and leg on command although has been witnessed moving the left arm spontaneously Assessment and Plan (1) Ischemic stroke Status: Acute Category: Medical Code(s): I63.9 - Cerebral infarction, unspecified (2) Atrial fibrillation with controlled ventricular response Status: Acute Category: Medical Code(s): I48.91 - Unspecified atrial fibrillation (3) Hypertensive heart disease Status: Chronic Qualifiers: Heart failure presence: without heart failure Qualified Code(s): I11.9 - Hypertensive heart disease without heart failure Category: Medical Code(s): I11.9 - Hypertensive heart disease without heart failure (4) Type 2 diabetes mellitus with hyperglycemia, with long-term current use of insulin Status: Acute Category: Medical Code(s): E11.65 - Type 2 diabetes mellitus with hyperglycemia; Z79.4 - longterm (current) use of insulin (5) Moderate COPD (chronic obstructive pulmonary disease) Status: Acute Category: Medical Code(s): J44.9 - Chronic obstructive pulmonary disease, unspecified (6) Coronary artery disease Status: Chronic Qualifiers: Coronary
--- NOTE | 2021-05-15 07:38 | SW/DCPLANNER ---
Addendum entered by [facility] 05/17/21 15:08: Family is now requesting placement. Patient information has been faxed to [facility] again and I will ask Dr Akins and [facility] to fax information as well per [facility] request. Addendum entered by [facility] 05/16/21 13:49: Evon with [facility] has reviewed patient information and confirmed services will start this week. Addendum entered by [facility] 05/16/21 07:24: After morning rounds patients caregiver (daughter in law Betsy) has decided that it would be best for this patient to discharge home with home health services. Betsy prefers patient to discharge home with [facility]. I will set this up today: patient will discharge home today. Addendum entered by [facility] 05/15/21 13:23: Milagros with [facility] is currently reviewing patient information. Addendum entered by [facility] 05/15/21 12:01: [facility] has stated that due to patient not having COVID vaccine they can not accept this patient. I have called multiple [place] facilities with no answer or not beds. [facility] is not interested in any [place] facilities: [facility] does not have any beds. I will fax patient information to Milagros with [facility]. I will follow up with [facility] once patient information is reviewed. [facility] has stated that if [facility] can NOT accept she is interested in patient returning home with home health services. Addendum entered by [facility] 05/15/21 10:35: Ally with [facility] is currently reviewing patient information. Addendum entered by [facility] 05/15/21 09:39: Patient information has been faxed to Ally with [facility]. Original Note: I spoke with this patients [id number] (POA) this morning regarding discharge plans. [facility]IN[facility]ly was interested in [facility] but her insurance is NOT in network with this facility. After a lengthy discussion CHRISTINAAshly is interested in [facility], [facility] or [facility]: I will follow up with facilities and fax patient information once a bed is available. Per Dr Akins patient is medically stable for discharge at this time.
[2021-05-15 08:00] VITALS: BP 111/72; PULSE 95; RESP 19; TEMP 36.4; O2SAT 97
[2021-05-15 08:01] VITALS: PULSE 95
[2021-05-15 11:04] LABS: POC Glucose,Bedside 364 (70-110)
--- NOTE | 2021-05-15 13:11 | DIET.NUTRFU ---
PO intakes 25%- pt with continued confusion. Glucerna BID added to diet order. Pt is total dependent feeder, requires full assistance and encouragement/cueing at mealtimes. Pt tolerating soft mechanical diet with thin liquids per BRAND EXECUTIVE. BG moderate-high- avg. 260, did have a critical reading of 364 this am. Weight down 6# since admission. Bowels normal.
--- NOTE | 2021-05-15 13:55 | HMH.OTEV ---
OT Inpatient Evaluation Rehab OT IP Evaluation Start: 05/13/21 08:20 Freq: ONCE Status: Complete Protocol: Document 05/15/21 13:42 JOHN (Rec: 05/15/21 13:54 JOHN [id number]) Rehab OT IP Assessment Subjective History *Admission Date: 05/12/21 *Chief complaint: Confusion *History of present illness: 85-year-old female was brought to the emergency department by family after she was found with altered mental state and exhibiting odd behaviors. Patient's son first identified something was wrong when overnight he found her moving some close to the floor and then laying on the clothes as if she was lying in bed. As the non categorical preschool teacher progressed patient was exhibiting odd behaviors and not acting like herself. No hallucinations were visualized. Patient cannot hold conversation. She cannot answer questions appropriately. Initially family had decided to schedule an outpatient appointment but as the morning progressed and patient's symptoms were not improving she was brought to the emergency department. Work-up in the emergency department revealed a subacute right fronto parietal stroke. Because the patient was outside the window for TPA decision was made to admit the patient for her stroke. At the time of my interview with the patient there was no family present. Patient knows she is in the hospital. She does not recall that she has had a stroke and believes she is in the hospital because she needs a heart catheterization . Patient did have a heart catheterization 3 days prior to this admiss
[2021-05-15 15:47] VITALS: BP 121/48; PULSE 79; RESP 19; TEMP 36.6; O2SAT 92
[2021-05-15 16:53] LABS: POC Glucose,Bedside 288 (70-110)
--- NOTE | 2021-05-15 17:08 | PC.NURSE ---
Pt has been pleasant and cooperative this shift. Alert to person and occasionally place. No complaints of pain or SOA. Pt is currently on room air with sats. >90%. Lungs CTA. No edema noted. Skin is C/D/I. Pt worked with PT today and sat up in the recliner for several hours. Pt ambulates with assistance X1 and uses a walker. Pt had a nose-bleed this AM that lasted for a couple hours. Afrin administered per MAR and bleed resolved. Urine is clear and yellow. 1 large, brown, soft BM this AM. FSBS results have been 364 and 288. 18 G peripheral IV in the LT AC is patent and SL. VSS. Call light within reach. Will continue to monitor.
[2021-05-15 20:00] VITALS: BP 148/78; PULSE 93; RESP 24; TEMP 36.9; O2SAT 94; O2SAT 97
[2021-05-15 22:01] LABS: POC Glucose,Bedside 222 (70-110)
[2021-05-16 04:00] VITALS: BP 134/74; PULSE 90; RESP 20; TEMP 36.2; O2SAT 97
[2021-05-16 05:00] VITALS: BMI 31.0
[2021-05-16 07:08] LABS: POC Glucose,Bedside 264 (70-110)
[2021-05-16 07:13] LABS: Chloride 95 mmol/L (98-107); Potassium 4.4 mmoL/L (3.5-5.1); Sodium 132 mmol/L (136-145)
[2021-05-16 07:16] LABS: Anion Gap 17.4 mEq/L (5-15); Blood Urea Nitrogen 33 mg/dl (7-17); Carbon Dioxide 24 mmol/L (22.0-30.0); Creatinine Clearance Estimated 60 mL/min (50-200); Estimated Glomerular Filt Rate 53 ml/min (>60); GFR (African American) 64 ML/MIN (>60)
[2021-05-16 07:17] LABS: Calcium 9.2 mg/dl (8.4-10.2); Glucose 259 mg/dl (74-100)
--- NOTE | 2021-05-16 07:21 | HMH.ACPN2 ---
Internal Medicine - PN: Subj *Date: 05/16/21 *Time: 07:21 Interval history: Patient has no new complaints this morning. She is more awake and alert. She is oriented to person but not place this morning. She has no recollection of why she is in the hospital Exam Vital signs and Labs for Last 24 Hours: Temp Pulse Resp BP Pulse Ox 97.2 F L 90 20 134/74 97 05/16/21 04:00 05/16/21 04:00 05/16/21 04:00 05/16/21 04:00 05/16/21 04:00 Laboratory Results - last 24 hr 05/15/21 10:52: POC Glucose 364 H* 05/15/21 16:31: POC Glucose 288 H 05/15/21 20:13: POC Glucose 222 H 05/16/21 06:57: POC Glucose 264 H I & O for Last 24 hours: Intake & Output 05/13/21 05/14/21 05/15/21 05/16/21 11:59 11:59 11:59 11:59 Intake Total 0 / 0 840 / 840 480 / 480 240 / 240 Output Total 400 / 400 Balance -400 / -400 840 / 840 480 / 480 240 / 240 Weight 208 lb 6 oz 205 lb 6 oz 204 lb 197 lb 9 oz - Constitutional no acute distress Comments: Patient can follow commands this morning including moving the left arm and leg at request - *Routine HEENT Exam Head: Present: normocephalic Eye: Present: EOMI, PERRL ENT: Present: mucous membranes moist - *Routine Neck Exam Present: supple. Absent: lymphadenopathy - *Routine Respiratory Exam Present: CTA bilaterally - *Routine Cardiovascular Exam Present: RRR - *Routine Abdominal Exam Present: soft, normoactive bowel sounds. Absent: tenderness - *Routine Extremities Exam Present: edema. Absent: cyanosis, clubbing - *Routine Neurological Exam Present: alert, CN II-XII intact. Absent: sensory deficit, motor deficit, hemineglect Assessment and Plan (1) Ischemic stroke Status: Acute Category: Medical Code(s): I63.9 - Cerebral infarction, unspecified (2) Atrial fibrillation with controlled ventricular response Status: Acute Category: Medical Code(s): I48.91 - Unspecified atrial fibrillation (3) Hypertensive heart disease Status: Chronic Qualifiers: Heart failure presence: without heart failure Qualified Code(s): I11.9 - Hypertensive heart disease without heart failure Category: Medical Code(s): I11.9 - Hypertensive heart disease without heart failure (4) Type 2 diabetes mellitus with hyperglycemia, with long-term current use of insulin Status: Acute Category: Medical Code(s): E11.65 - Type 2 diabetes mellitus with hyperglycemia; Z79.4 - long term care social worker (current) use of insulin (5) Moderate COPD (chronic obstructive pulmonary disease) Status: Acute Category: Medical Code(s): J44.9 - Chronic obstructive pulmonary disease, unspecified (6) Coronary artery disease Status: Chronic Qualifiers: Coronary Disease-Associated Artery/Lesion type: [place] artery [place] vs. transplanted heart: rampart heart Associated angina: without angina Qualified Code(s): I25.10 - Atherosclerotic heart disease of [place] coronary artery without angina pectoris Category: Medical Code(s): I25.10 - Atherosclerotic heart disease of [place] coronary artery without angina pectoris - Assessment and plan all Dx Assessment and Plan for all problems:: Patient has improved significantly over the last 24 hours and is now ambulating steadily with a walker. Kvqkmuya-qf-pqn believes she will be able to care for her at home and would prefer the patient be discharged home with home health for nursing, physical therapy, occupational therapy. Patient will be discharged home today.
[2021-05-16 07:22] LABS: Basophils % 0.5 % (0.1-2.0); Eosinophils # 0.1 K/mm3 (0.0-0.4); Hematocrit 48.7 % (37.0-47.0); Hemoglobin 15.3 g/dL (12.2-16.2); Lymphocytes # 1.7 K/mm3 (0.7-4.5); Lymphocytes % 27.4 % (10-50); Mean Corpuscular HGB Conc 31.4 g/dL (31.8-35.4); Mean Corpuscular Volume 95.7 fl (81-99); Mean Platelet Volume 8.4 fl (7.4-10.4); Monocytes # 0.6 K/mm3 (0.1-1.0); Monocytes % 10.1 % (1.7-9.3); Neutrophils # 3.8 K/mm3 (1.8-7.8); Neutrophils % 60.1 % (37.0-80.0); Platelet Count 175 K/mm3 (142-424); Red Blood Count 5.09 M/mm3 (4.20-5.40); Red Cell Distribution Width 16.4 % (11.5-17.5); White Blood Count 6.3 K/mm3 (4.8-10.8)
--- NOTE | 2021-05-16 07:23 | HMH.DCSUM ---
General - General Admission date:: 05/12/21 Discharge date: 05/16/21 HPI HPI: 85-year-old female was brought to the emergency department by family after she was found with altered mental state and exhibiting odd behaviors. Patient's son first identified something was wrong when overnight he found her moving some close to the floor and then laying on the clothes as if she was lying in bed. As the health center manager progressed patient was exhibiting odd behaviors and not acting like herself. No hallucinations were visualized. Patient cannot hold conversation. She cannot answer questions appropriately. Initially family had decided to schedule an outpatient appointment but as the morning progressed and patient's symptoms were not improving she was brought to the emergency department. Work-up in the emergency department revealed a subacute right fronto parietal stroke. Because the patient was outside the window for TPA decision was made to admit the patient for her stroke. At the time of my interview with the patient there was no family present. Patient knows she is in the hospital. She does not recall that she has had a stroke and believes she is in the hospital because she needs a heart catheterization. Patient did have a heart catheterization 3 days prior to this admission with stenting of the LAD. She claims she is short of breath. She denies pain. Hospital Course Hospital Course: Patient was admitted with diagnosis of CVA. From initial evaluation until the last day of hospitalization examination was difficult due to the patient's inability to follow commands. There appeared to be some left hemineglect initially although by the day of discharge this had resolved. There is questionable left lower extremity motor deficit as well but this also resolved by the day of discharge. Patient was admitted. Blood pressure was low on admission and some antihypertensives were held and gradually reintroduce during hospitalization. PT and OT were consulted. Patient was able to ambulate with assistance and a walker. Speech therapy was consulted and recommended a mechanical soft diet. On 817 patient had been able to ambulate using a walker. She was more awake and alert. She could follow commands. In discussion with patient's igebevst-zz-miw decision was made to discharge the patient home as eppejqlc-qw-zuy felt she would best recover there. Patient was discharged home and will have home health nursing, physical therapy, Occupational Therapy Patient has a history of diabetes mellitus. On admission she was started on sliding scale insulin and as admission progressed her long-acting Lantus was restarted and gradually increased. Blood sugars remained in the 200s during hospitalization. Patient has history of coronary artery disease and had recently undergone stenting of the LAD. Dual antiplatelet therapy was continued during hospitalization Patient has history of atrial fibrillation and was continued on Xarelto during hospitalization Objective Vital signs: Temp Pulse Resp BP Pulse Ox 97.2 F L 90 20 134/74 97 05/16/21 04:00 05/16/21 04:00 05/16/21 04:00 05/16/21 04:00 05/16/21 04:00 Results Labs on day of discharge: Labs from last 24 hours 05/16/21 05/16/21 05/15/21 06:57 06:53 20:13 WBC 6.3 RBC 5.09 Hgb 15.3 Hct 48.7 H MCV 95.7 MCH 30.0 MCHC 31.4 L RDW 16.4 Plt Count 175 MPV 8.4 Neut % (Auto) 60.1 Lymph % (Auto) 27.4 [place] % (Auto) 10.1 H Eos % (Auto) 2.0 Baso % (Auto) 0.5 Neut # (Auto) 3.8 Lymph # (Auto) 1.7 [place] # (Auto) 0.6 Eos # (Auto) 0.1 Baso # (Auto) 0.0 POC Glucose 264 H 222 H 05/15/21 05/15/21 16:31 10:52 WBC RBC Hgb Hct MCV MCH MCHC RDW Plt Count MPV Neut % (Auto) Lymph % (Auto) [place] % (Auto) Eos % (Auto) Baso % (Auto) Neut # (Auto) Lymph # (Auto) [place] # (Auto) Eos #
[2021-05-16 07:30] VITALS: BP 152/99; PULSE 91; RESP 20; TEMP 36.7; O2SAT 94
[2021-05-16 08:00] VITALS: PULSE 91; RESP 20; O2SAT 94
[2021-05-16 08:54] VITALS: PULSE 91
--- NOTE | 2021-05-16 09:25 | HMH.PHAINT ---
MEDICATION DISCHARGE COUNSELING COMPLETED. SPOKE WITH PATIENT ABOUT DISCONTINUING CURRENT REGIMEN OF [place] AND STARTING THE NEW REGIMEN OF [place] 25MG DAILY. PATIENT STATED THAT SHE DOESN'T TAKE CARE OF HER MEDICATION, BUT THAT SHE WOULD TELL THE PERSON WHO DOES. I DOCUMENTED ON DISCHARGE PAPERS THE NEW REGIMEN SO THAT THEY WOULD EASILY BE ABLE TO SEE CHANGES.
[2021-05-16 11:33] LABS: POC Glucose,Bedside 357 (70-110)
== END 2021-05-16 12:10 | disposition home or self-care (01) ==
LOC: ER 13:33 → 2ND 13:58 → OB 05-16 10:25
PROVIDERS: Internal Medicine Adolescent Medicine; Admitting Provider Family Medicine; Emergency Provider Emergency Medicine; PCP Family Medicine; Visit Provider Family Medicine
DX: I63.89 Other cerebral infarction (principal); G81.94 Hemiplegia, unspecified affecting left nondominant side; Z20.822 Contact with and (suspected) exposure to COVID-19; I48.91 Unspecified atrial fibrillation; E11.65 Type 2 diabetes mellitus with hyperglycemia; Z79.4 Long term (current) use of insulin; I11.9 Hypertensive heart disease without heart failure; J44.9 Chronic obstructive pulmonary disease, unspecified; I25.10 Atherosclerotic heart disease of native coronary artery without angina pectoris; Z88.7 Allergy status to serum and vaccine; Z79.01 Long term (current) use of anticoagulants; Z79.02 Long term (current) use of antithrombotics/antiplatelets; Z95.5 Presence of coronary angioplasty implant and graft; E03.9 Hypothyroidism, unspecified; I42.9 Cardiomyopathy, unspecified; I11.0 Hypertensive heart disease with heart failure; I50.9 Heart failure, unspecified; E78.5 Hyperlipidemia, unspecified; Z79.899 Other long term (current) drug therapy
CPT/HCPCS: G0378; 36415; 70450; 70496; 70498; 71045; 80048; 80053; 80061; 81001; 82962; 83735; 83880; 84100; 84443; 84484; 85025; 87040; 92610; 93005; 94760; 97116; 97161; 97165; 99284; Q9967; U0003

== ENCOUNTER 2021-05-17 18:23 | Observation (INO) | payer MEDICARE, SELFPAY ==
[2021-05-17] VITALS (7 sets, daily range): BP systolic 93–111; BP diastolic 49–77; PULSE 65–93; RESP 16–20; TEMP 36.8; O2SAT 94–98; BMI 30.4; BMI 30.2
--- NOTE | 2021-05-17 18:25 | CT_ITS ---
PROCEDURE INFORMATION: Exam: CT Head Without Contrast Exam date and time: 05/17/2021 6:25 PM Age: 85 years old Clinical indication: Altered mental status/memory loss; Confusion or disorientation; Additional info: AMS TECHNIQUE: Imaging protocol: Computed tomography of the head without contrast. Radiation optimization: All CT scans at this facility use at least one of these dose optimization techniques: automated exposure control; mA and/or kV adjustment per patient size (includes targeted exams where dose is matched to clinical indication); or iterative reconstruction. COMPARISON: CT HEAD/BRAIN WO CON 05/12/2021 10:42 AM FINDINGS: Brain: No midline shift. Age-related atrophy and chronic white matter ischemic changes. Cerebral ventricles: Area of low attenuation is again noted within the right temporoparietal lobe with some compression of the right lateral ventricle present. The ventricular system demonstrates mild diffuse compensatory enlargement. Encephalomalacia changes right occipital lobe. Paranasal sinuses: Visualized sinuses are unremarkable. No fluid levels. Mastoid air cells: Visualized mastoid air cells are well aerated. Bones/joints: Lytic lesions are again noted within the occipital bone bilaterally. This is unchanged. Soft tissues: No acute changes IMPRESSION: 1. Area of low attenuation is again noted within the right temporoparietal lobe with some compression of the right lateral ventricle present. Findings may be secondary to subacute area of infarction, however other etiologies such as neoplasm with surrounding edematous changes cannot be completely excluded. Further evaluation with MRI of the brain is recommended. 2. No midline shift. 3. Age-related atrophy and chronic white matter ischemic changes.
--- NOTE | 2021-05-17 18:43 | PC.NURSE ---
PT GONE TO CT
[2021-05-17 18:53] LABS: Chloride 97 mmol/L (98-107)
[2021-05-17 18:54] LABS: Basophils % 0.3 % (0.1-2.0); Eosinophils # 0.1 K/mm3 (0.0-0.4); Eosinophils % 1.1 % (0.1-12.0); Hematocrit 32.5 % (37.0-47.0); Hemoglobin 10.8 g/dL (12.2-16.2); Lymphocytes # 1.3 K/mm3 (0.7-4.5); Lymphocytes % 21.4 % (10-50); Mean Corpuscular HGB Conc 33.2 g/dL (31.8-35.4); Mean Corpuscular Hemoglobin 30.2 pg (27.0-31.2); Mean Platelet Volume 8.6 fl (7.4-10.4); Monocytes # 0.5 K/mm3 (0.1-1.0); Monocytes % 7.9 % (1.7-9.3); Neutrophils # 4.2 K/mm3 (1.8-7.8); Neutrophils % 69.3 % (37.0-80.0); Platelet Count 278 K/mm3 (142-424); Potassium 4.6 mmoL/L (3.5-5.1); Red Blood Count 3.57 M/mm3 (4.20-5.40); Red Cell Distribution Width 16.1 % (11.5-17.5); Sodium 130 mmol/L (136-145); White Blood Count 6.1 K/mm3 (4.8-10.8)
[2021-05-17 18:56] LABS: Alanine Aminotransferase 23 U/L (12-78); Aspartate Amino Transferase 48 U/L (14-36); Blood Urea Nitrogen 29 mg/dl (7-17); Creatinine Clearance Estimated 63 mL/min (50-200); Estimated Glomerular Filt Rate 53 ml/min (>60); GFR (African American) 64 ML/MIN (>60)
[2021-05-17 18:57] LABS: Albumin Level 3.9 g/dl (3.5-5.0); Albumin/Globulin Ratio 1.3 (1.1-1.8); Alkaline Phosphatase 90 U/L (38-126); Anion Gap 11.6 mEq/L (5-15); Bilirubin,Total 0.6 mg/dl (0.2-1.3); Calcium 8.6 mg/dl (8.4-10.2); Carbon Dioxide 26 mmol/L (22.0-30.0); Globulin 3.1 g/dL (1.3-3.2); Glucose 232 mg/dl (74-100); Magnesium 1.9 mg/dl (1.6-2.3)
--- NOTE | 2021-05-17 18:57 | ECG_ITS ---
APPROVED REPORT Exam: Resting ECG HR:75 bpm ECG Measurements Heart Rate 75 AXES QRSd 100 QRS 56 QT 386 T [address]Tc [address] & T wave abnormality, consider anterolateral ischemia or digitalis effect Abnormal ECG Electronically signed by : Aubrey Gallardo MD 05/19/2021 12:06:28
--- NOTE | 2021-05-17 18:59 | HMH.EDGENADL ---
ED Disposition Clinical Impression: Ischemic stroke, Altered mental status Disposition: Admitted As Inpatient Condition on Discharge: Good Referrals: Aubrey Akins MD [Primary Care Provider] - - Critical Care Critical Care Time: No Attestation: On 05/17/21, the high probability of a clinically significant, sudden or life threatening deterioration of the following system(s) required my full and direct attention, intervention and personal management. The time I documented below is in addition to time spent performing reported procedures but includes the following listed in this critical care notation. Medical Decision Making - Medical Records Medical records reviewed: Yes: I reviewed the patient's medical records. - Pradeep Inquiry Pt receiving controlled substance: No Vital Signs: 05/17/21 18:23 Temperature 98.2 F Temperature Source Oral Pulse Rate [Right] 65 Respiratory Rate 16 Blood Pressure [Right Arm] 100/70 L Blood Pressure Mean [Right Arm] 80 02 Sat by Pulse Oximetry 98 Oxygen Delivery Method Room Air - Lab Data Lab Results 05/17/21 18:40: WBC 6.1, RBC 3.57 L D, Hgb 10.8 L, Hct 32.5 L, MCV 91.0, MCH 30.2, MCHC 33.2, RDW 16.1, Plt Count 278 D, MPV 8.6, Neut % (Auto) 69.3, Lymph % (Auto) 21.4, [place] % (Auto) 7.9, Eos % (Auto) 1.1, Baso % (Auto) 0.3, Neut # (Auto) 4.2, Lymph # (Auto) 1.3, [place] # (Auto) 0.5, Eos # (Auto) 0.1, Baso # (Auto) 0.0 05/17/21 18:40: Sodium 130 L, Potassium 4.6, Chloride 97 L, Carbon Dioxide 26, Anion Gap 11.6, BUN 29 H, Creatinine 1.00, Estimated Creat Clear 63, Estimated GFR 53 L, Est GFR ( Amer) 64, Glucose 232 H, Calcium 8.6, Magnesium 1.9, Total Bilirubin 0.6, AST 48 H, ALT 23, Alkaline Phosphatase 90, Troponin I 0.02, Total Protein 7.0, Albumin 3.9, Globulin 3.1, Albumin/Globulin Ratio 1.3, TSH 3.64 Result diagrams: 05/17/21 18:40 05/17/21 18:40 Orders (Tests/Meds): ED MEDICATIONS Generic Name Dose Route Start Last Admin Trade Name Freq PRN Reason Stop Dose Admin Acetaminophen 650 mg 05/17/21 19:53 Acetaminophen 325mg Tab PO 06/16/21 19:52 Q4HP PRN Fever or Mild Pain ORDERS Category Date Time Status Basic Metabolic Panel AMLAB Lab 05/18/21 06:00 Ordered Complete Blood Count Auto Diff AMLAB Lab 05/18/21 06:00 Ordered Lipid Panel AMLAB Lab 05/18/21 06:00 Ordered Magnesium AMLAB Lab 05/18/21 06:00 Ordered Phosphorous AMLAB Lab 05/18/21 06:00 Ordered Troponin I Q3H Lab 05/17/21 21:30 Ordered Troponin I Q3H Lab 05/18/21 00:30 Ordered Urinalysis and Microscopic Stat Lab 05/17/21 18:25 Ordered Medical Decision Narrative: 85-year-old female presents with new onset confusion. On my exam she is alert and oriented in no acute distress nontoxic-appearing without focal deficit. Stat CT head obtained as well as laboratory evaluation to assess for etiology of confusion. She had recent stroke and this is likely possible as well as one of the causes. Discussed case with [id number] who has been taking care of her and Dr. Holland. The plan will be to admit for PT OT and further work-up General Adult HPI - General Chief complaint: Headache Stated complaint: Headache Time Seen by Provider: 05/17/21 18:30 Mode of Arrival: EMS Limitations: No Limitations Description of Symptoms (Recalled from ER Triage Doc. by RN): Patient c/o headache. EMS reports patient was discharged yesterday from [facility] for a CVA per patient report. Patient alert and oriented times three in ED triage. Patient reports she has a history of decreased vission. Patient denies any unilateral weakness or numbness. - History of Present Illness HPI narrative: 85-year-old female presents with episode of confusion. She had recent stroke was admitted to the hospital for several days. She received PT and OT in the hospital and was ambulatory with a walker before discharge. Was doing well at home however had episode where she got acutely confused tonight. No new
--- NOTE | 2021-05-17 19:10 | PC.NURSE ---
Paging Dr Gallardo, whom is executive talent acquisition consultant for Dr Akins, at this time.
[2021-05-17 19:11] LABS: Troponin I 0.02 ng/ml (0.00-0.034)
[2021-05-17 19:29] LABS: Thyroid Stimulating Hormone 3.64 uIU/mL (0.465-4.68)
[2021-05-17 20:03] LABS: Microscopic, Urine URINE MICROSCOPIC (MICROSCOPIC)
[2021-05-17 20:04] LABS: Appearance,Urine SL CLOUDY (Clear); Bilirubin,Urine Negative (Negative); Blood, Urine Negative (Negative); Color,Urine YELLOW (Yellow); Glucose,Urine (UA) Negative (Negative); Ketones,Urine Negative (Negative); Leukocyte Esterase,Urine TRACE (Negative); Nitrate,Urine Negative (Negative); PH,Urine 5.5 (5.0-8.5); Protein,Urine Negative (Negative); Urobilinogen,Urine 0.2 EU/dl (0.2)
[2021-05-17 20:17] LABS: WBC,Urine 20-50 #/hpf (0-3)
[2021-05-17 20:18] LABS: Bacteria,Urine Trace /lpf; Mucus,Urine 1+ /lpf
--- NOTE | 2021-05-17 21:09 | PC.NURSE ---
House notified of need for bed
[2021-05-17 21:20] LABS: Coronavirus 19, PCR Not Detected (NotDetected); Influenza A, PCR Not Detected (NotDetected); Influenza B, PCR Not Detected (NotDetected)
--- NOTE | 2021-05-17 22:07 | PC.NURSE ---
Report called to Lyndsey at this time
--- NOTE | 2021-05-17 22:39 | PC.NURSE ---
PT ARRIVED TO FLOOR VIA W/C FROM ED W/STAFF AT [id number]
[2021-05-18] VITALS: BP 110/74; PULSE 100; PULSE 84; RESP 15; TEMP 37.1; O2SAT 95
--- NOTE | 2021-05-18 00:12 | PC.NURSE ---
unable to complete med rec at this time. pt is a unaware of meds and dosages
[2021-05-18 01:16] LABS: Troponin I 0.03 ng/ml (0.00-0.034)
[2021-05-18 03:12] VITALS: PULSE 84
[2021-05-18 03:45] VITALS: BP 130/65; PULSE 79; RESP 18; TEMP 36.9; O2SAT 93
[2021-05-18 04:00] VITALS: PULSE 90
[2021-05-18 06:41] LABS: Basophils % 0.3 % (0.1-2.0); Eosinophils # 0.1 K/mm3 (0.0-0.4); Eosinophils % 1.3 % (0.1-12.0); Hematocrit 31.8 % (37.0-47.0); Hemoglobin 10.8 g/dL (12.2-16.2); Lymphocytes # 1.5 K/mm3 (0.7-4.5); Lymphocytes % 26.7 % (10-50); Mean Corpuscular Hemoglobin 30.7 pg (27.0-31.2); Mean Corpuscular Volume 90.5 fl (81-99); Mean Platelet Volume 8.8 fl (7.4-10.4); Monocytes # 0.5 K/mm3 (0.1-1.0); Monocytes % 8.3 % (1.7-9.3); Neutrophils # 3.5 K/mm3 (1.8-7.8); Neutrophils % 63.4 % (37.0-80.0); Platelet Count 259 K/mm3 (142-424); Red Blood Count 3.51 M/mm3 (4.20-5.40); White Blood Count 5.5 K/mm3 (4.8-10.8)
[2021-05-18 06:59] LABS: Chloride 98 mmol/L (98-107); Potassium 4.4 mmoL/L (3.5-5.1); Sodium 132 mmol/L (136-145)
[2021-05-18 07:01] LABS: Blood Urea Nitrogen 27 mg/dl (7-17); Creatinine Clearance Estimated 57 mL/min (50-200); Estimated Glomerular Filt Rate 47 ml/min (>60); GFR (African American) 57 ML/MIN (>60)
[2021-05-18 07:02] LABS: Anion Gap 11.4 mEq/L (5-15); Carbon Dioxide 27 mmol/L (22.0-30.0); Cholesterol 165 mg/dl (140-200); Glucose 207 mg/dl (74-100); Phosphorous 3.6 mg/dl (2.5-4.5); Triglycerides 300 mg/dl (30-150); VLDL Cholesterol 60 mg/dL (0-40)
[2021-05-18 07:03] LABS: Chol/HDL Ratio 7.2 (1-3.5); HDL Cholesterol 23 mg/dl (40-60); Magnesium 2.1 mg/dl (1.6-2.3)
[2021-05-18 07:13] LABS: Direct LDL Cholesterol 87.47 mg/dL (100-129)
--- NOTE | 2021-05-18 07:17 | HMH.PHAVTE ---
[facility] Pharmacy VTE Monitoring - Patient Demographics Admission date: 05/18/21 Report Date: 05/18/21 Time: 07:17 Allergies/Adverse Reactions: Patient Allergies Pertussis Vaccines [PERTUSSIS VACCINES] Allergy (Mild, Verified 05/09/21 11:55) SWELLING tetanus and diphtheria toxoids [TETANUS & DIPHTHERIA TOXOIDS] Allergy (Mild, Verified 05/09/21 11:55) SWELLING Tetanus Vaccines and Toxoid [TETANUS VACCINES & TOXOID] Allergy (Unknown, Verified 05/09/21 11:55) SWELLING Height: 1.75 m Weight: 92.59 kg Patient Problems: Current Active Problems Ischemic stroke (Acute) Altered mental status (Acute) - VTE Risk Labs: VTE Related Lab Results Hgb 10.8 g/dL (12.2-16.2) L 05/18/21 06:24 Hct 31.8 % (37.0-47.0) L 05/18/21 06:24 Plt Count 259 K/mm3 (142-424) 05/18/21 06:24 BUN 27 mg/dl (7-17) H 05/18/21 06:24 Creatinine 1.10 mg/dl (0.52-1.04) H 05/18/21 06:24 Estimated Creat Clear 57 mL/min (50-200) 05/18/21 06:24 Was VTE Risk Assessment Performed: Yes VTE Risk Level: Low Risk Clinical Trial Participant: No - Prophylaxis VTE Prophylaxis Ordered?: Yes Types of VTE Prophylaxis: TEDS Knee High
--- NOTE | 2021-05-18 07:22 | HMH.HP ---
*Admission Date: 05/18/21 *Chief complaint: Confusion *History of present illness: 85-year-old female was brought back to the emergency department yesterday by family due to confusion at home after recent admission for CVA. Patient had a 4-day hospitalization here for a right-sided CVA. Initial plan had been to transfer patient to half-way facility but by the day of discharge patient had improved enough that family believe they could care for her at home. The first 24 hours at home the family learned that was a mistake. Family contacted my office at the end of the day yesterday asking for assistance with placement. As the day progressed family was having more difficulty caring for the patient and she was brought back to the ER. No family is present at bedside this morning. The patient is oriented to person. [facility] History I have reviewed the patient's past medical history: Yes Medical History: Reports:: Asthma, Atrial Fibrillation, Cardiomyopathy, Congestive Heart Failure, Chronic Obstructive Pulmonary Disease (COPD), Congenital Heart Disease, Coronary Artery Disease, Diabetes Mellitus Type 2, Hyperlipidemia, Hypertension, Lung Disease Denies:: Cancer, Diabetes Mellitus Type 1, Internal Pacemaker, MRSA, Seizures *Have you ever received a pneumonia vaccine?: No *Have you received a flu vaccine this season?: No Other Medical History: Reports: Arthritis, Hypothyroidism, Thyroid Disease Other Surgeries: Yes: Cardiac Catheterization, Coronary Stent, Hysterectomy-Total, Hysterectomy-Partial, Thyroidectomy, Other. No: Pacemaker Amputation: No Fractures: No - *Social History Last grade of school completed: 11th or 12th Smoking Status: Former smoker Tobacco Type: cigarettes Alcohol Intake: never Alcohol Intake Frequency:: other Substance Use Type: denies use *Occupational Status:: retired, disabled Housing: house Household Members: children *Travel in the last 8 weeks: None Family Hx:: No significant family history Review of Systems - Review of Systems Review of systems:: unable to obtain - *Neurologic Denies dizziness, Denies numbness, Denies weakness Meds Home Medications Medication Instructions Recorded Confirmed Type gabapentin 400 mg capsule 400 mg PO TID 11/04/17 05/13/21 History levothyroxine 125 mcg tablet 125 mcg PO DAILY tab 11/04/17 05/13/21 History omeprazole 40 mg capsule,delayed 40 mg PO DAILY 11/04/17 05/13/21 History release ferrous sulfate 325 mg (65 mg 325 mg PO BID tab 11/05/17 05/13/21 History iron) tablet Clopidogrel Bisulfate [Plavix 75mg 75 mg PO DAILY 05/27/19 05/13/21 History Tab] Digoxin 125 mcg PO DAILY 05/27/19 05/13/21 History Fluticasone/Vilanterol [Breo 2 puff IN DAILY 05/28/19 05/13/21 History Ellipta 100-25 Mcg INH] Rosuvastatin Calcium 40 mg PO HS 05/28/19 05/13/21 History carbamazepine 200 mg tablet 200 mg PO DAILY tab 11/30/19 05/13/21 History metformin 850 mg tablet 850 mg PO BID tab 11/30/19 05/13/21 History Insulin NPH Hum/Reg Insulin Hm 20 unit SQ HS 04/20/20 05/13/21 History [Novolin 70-30 100 Unit/ml Vial] Insulin NPH Hum/Reg Insulin Hm 44 unit SQ DAILY 04/20/20 05/13/21 History [Novolin 70-30 100 Unit/ml Vial] duloxetine 60 mg capsule,delayed 60 mg PO DAILY cap 04/20/20 05/13/21 History release duloxetine 30 mg capsule,delayed 30 mg PO DAILY cap 06/27/20 05/13/21 History release insulin glargine 100 unit/mL 44 unit SQ HS ml 06/27/20 05/13/21 History subcutaneous solution bisoprolol fumarate 10 mg tablet 5 mg PO DAILY tab 04/28/21 05/13/21 History tiotropium bromide 2.5 2 inh INHALATION DAILY g 04/28/21 05/13/21 History mcg/actuation mist for inhalation Aspirin [Aspirin 81mg EC Tab] 81 mg PO DAILY 05/08/21 05/13/21 History Furosemide [Lasix 40mg tablet] 40 mg PO BID 05/08/21 05/13/21 History Rivaroxaban [Xarelto 20mg Tablet*] 20 mg PO QPMWITHMEAL 05/08/21 05/13/21 History Spironolactone [Aldactone 50mg 25 mg PO DAILY 05/08/2105/13
--- NOTE | 2021-05-18 07:25 | HMH.DCSUM ---
General - General Admission date:: 05/17/21 Discharge date: 05/18/21 HPI HPI: 85-year-old female was brought back to the emergency department yesterday by family due to confusion at home after recent admission for CVA. Patient had a 4-day hospitalization here for a right-sided CVA. Initial plan had been to transfer patient to custodial facility but by the day of discharge patient had improved enough that family believe they could care for her at home. The first 24 hours at home the family learned that was a mistake. Family contacted my office at the end of the day yesterday asking for assistance with placement. As the day progressed family was having more difficulty caring for the patient and she was brought back to the ER. No family is present at bedside this morning. The patient is oriented to person. Hospital Course Hospital Course: Patient was admitted for observation while placement was sought for rehabilitation Objective Vital signs: Temp Pulse Resp BP Pulse Ox 98.5 F 90 18 130/65 93 L 05/18/21 03:45 05/18/21 04:00 05/18/21 03:45 05/18/21 03:45 05/18/21 03:45 no acute distress - *Routine HEENT Exam Head: Present: normocephalic Eye: Present: EOMI, PERRL ENT: Present: mucous membranes moist - *Routine Neck Exam Present: supple - *Routine Respiratory Exam Present: CTA bilaterally - *Routine Cardiovascular Exam Present: RRR - *Routine Abdominal Exam Present: soft, normoactive bowel sounds. Absent: tenderness - *Routine Extremities Exam Absent: cyanosis, clubbing, edema - *Routine Skin Exam Present: warm. Absent: rash - *Routine Neurological Exam Present: alert, CN II-XII intact, moving all extremities, vision grossly intact, hearing grossly intact. Absent: oriented X3 (oriented to person only), sensory deficit, motor deficit - Detailed Eye Exam Eyelids: Bilateral normal inspection Results Labs on day of discharge: Labs from last 24 hours 05/18/21 05/18/21 05/18/21 06:24 06:24 00:40 WBC 5.5 RBC 3.51 L Hgb 10.8 L Hct 31.8 L MCV 90.5 MCH 30.7 MCHC 34.0 RDW 16.0 Plt Count 259 MPV 8.8 Neut % (Auto) 63.4 Lymph % (Auto) 26.7 Carbon % (Auto) 8.3 Eos % (Auto) 1.3 Baso % (Auto) 0.3 Neut # (Auto) 3.5 Lymph # (Auto) 1.5 Carbon # (Auto) 0.5 Eos # (Auto) 0.1 Baso # (Auto) 0.0 Sodium 132 L Potassium 4.4 Chloride 98 Carbon Dioxide 27 Anion Gap 11.4 BUN 27 H Creatinine 1.10 H Estimated Creat Clear 57 Estimated GFR 47 L Est GFR ( Amer) 57 L Glucose 207 H Calcium 9.0 Phosphorus 3.6 Magnesium 2.1 D Total Bilirubin AST ALT Alkaline Phosphatase Troponin I 0.03 Total Protein Albumin Globulin Albumin/Globulin Ratio Triglycerides 300 H Cholesterol 165 LDL Cholesterol Direct 87.47 L VLDL Cholesterol 60 H HDL Cholesterol 23 L Cholesterol/HDL Ratio 7.2 H TSH Urine Color Urine Appearance Urine pH Ur Specific [place] Urine Protein Urine Glucose (UA) Urine Ketones Urine Blood Urine Nitrate Urine Bilirubin Urine Urobilinogen Ur Leukocyte Esterase Urine WBC Ur Squamous Epith Cells Urine Bacteria Urine Mucus SARS-CoV-2 (PCR) Influenza A Untype (PCR) Influenza Type B (PCR) 05/17/21 05/17/21 05/17/21 21:55 21:08 19:55 WBC RBC Hgb Hct MCV MCH MCHC RDW Plt Count MPV Neut % (Auto) Lymph % (Auto) Carbon % (Auto) Eos % (Auto) Baso % (Auto) Neut # (Auto) Lymph # (Auto) Carbon # (Auto) Eos # (Auto) Baso # (Auto) Sodium Potassium Chloride Carbon Dioxide Anion Gap BUN Creatinine Estimated Creat Clear Estimated GFR Est GFR ( Amer) Glucose Calcium Phosphorus Magnesium Total Bilirubin AST ALT Alkaline Phos
[2021-05-18 08:00] VITALS: BP 125/76; PULSE 70; PULSE 76; RESP 24; TEMP 36.7; O2SAT 96
--- NOTE | 2021-05-18 10:34 | SW/DCPLANNER ---
Addendum entered by Irina Cadena 05/18/21 15:04: FACILITY RECEIVED THE AUTHORIZATION TO GO TO [facility]... DAUGHTER IS GOING TO TRANSPORT HER.... Addendum entered by Irina Cadena 05/18/21 12:29: SENT PT/OT EVAL AND UPDATED PROGRESS NOTES... WAITING TO HEAR BACK TO WHETHER PATIENT HAS BEEN APPROVED. Original Note: I HAD A CONVERSATION WITH THE DAUGHTER WHOM IS THE POA OF THIS PATIENT AND EXPLAINED TO HER THAT [facility] HAS AGREED TO TAKE PATIENT ONCE THEY RECEIVED THE AUTHORIZATION FROM [facility]... ONCE APPROVED SHE WILL DISCHARGE... I HAVE SENT UPDATES TO BE SENT TO [facility]....
--- NOTE | 2021-05-18 11:12 | HMH.OTEV ---
OT Inpatient Evaluation Rehab OT IP Evaluation Start: 05/18/21 08:07 Freq: ONCE Status: Complete Protocol: Document 05/18/21 11:07 [email or web address] (Rec: 05/18/21 11:11 [facility] [id number]) Rehab OT IP Assessment Subjective History Pt oriented x 2. Pt admitted via ED on 05/17/21 due to increased confusion. Pt had recently had a 4 day stay at hospital after having a CVA. Pt was taken home with family who no longer feel they can care for her appropriately. Pt has a past medical history of Asthma, Atrial Fibrillation , Cardiomyopathy, Congestive Heart Failure, Chronic Obstructive Pulmonary Disease (COPD), Congenital Heart Disease, Coronary Artery Disease, Diabetes Mellitus Type 2, Hyperlipidemia, Hypertension, Lung Disease. Pt reports prior to her CVA she was independent with all ADLs and IADL's. She did not use a walker. Due to decreased confusion the information she provided may not be correct. Subjective I have a big garden, where is it? Objective Patient Orientation Person,Birthday Upper Extremity Gross ROM WFL Bed Mobility bed mobility-scooting,bed mobility - supine/sit,bed mobility - rolling Assist Level Contact Guard/Hand Hold Transfer Training Sit/Stand Transfer Assist Level Minimal x 1 (25% assist) Chair Transfer Ability Minimal x 1 (25% assist) Chair Transfer Technique Sit to/from Ambulatory Chair Transfer Assistive Devices Rolling Walker Rehab OT IP prob,goals,plan Problems Date of Evaluation: 05/18/21 OT IP Problems Bed Mobility,Transfers,Gait, Balance,Self care,Safety Rehab Potential Rehab Potential Good Equipment Needs Assistive Devices Rolling / Wheeled Walker Plan OT intervention Plan Bed Mobility,Transfers,Gait, Balance,Self care,Safety, Therapeutic Exercise OT Plan Frequency BID Duration
--- NOTE | 2021-05-18 12:02 | HMH.PTEV ---
Physical Therapy Evaluation Rehab PT IP Evaluation Start: 05/18/21 08:06 Freq: ONCE Status: Active Protocol: Document 05/18/21 11:56 [place] (Rec: 05/18/21 12:02 [place] [id number]) Subjective/History History History 85 yowf adm to [facility] with AMS, prior CVA ~ 4-5 days ago. She reports she lives alone, and uses a walker for ambulation. Subjective Subjective Pt with no c/o this am. Rehab PT IP Eval Objective Appearance Patient Behavior Appropriate Patient Orientation Person,Place,Month Difficulty following instructions none Speech Pattern Clear Ambulation Patient Able to Ambulate Yes Ambulation Observation IP General Gait Pattern Observation Wide Based Gait,Shuffling Step Ambulation Distance (feet) 15 Ambulation Assistive Device None Ambulation Ability Minimal x 1 (25% assist) Balance Ability to Arise Able, uses arms to help Sitting Balance Steady, safe Standing Balance Steady, wide stance Dynamic Sitting Balance Ability Good Dynamic Standing Balance Ability Fair Transfers Chair Transfer Ability Minimal x 1 (25% assist) Sit to Stand Bed Transfer Ability Minimal x 1 (25% assist) Sit to Stand Chair Transfer Ability Minimal x 1 (25% assist) ROM All Extremities PT ROM Status WFL MMT All Extremities PT MMT WFL Rehab PT IP prob,goals,plan Problems Date of Evaluation: 05/18/21 PT IP Problems Bed Mobility,Transfers,Gait Rehab Potential Rehab Potential Good Plan PT Intervention Plan Bed Mobility,Transfers,Gait, Self care,Therapeutic Exercise PT Plan Frequency BID Duration LOS Discharge Goals Bed Transfer Ability Contact Guard/Hand Hold Sit to Stand Chair Transfer Ability Contact Guard/Hand Hold Ambulation Assistive Device Rolling Walker Ambulation Distance (feet) 30 Discharge Plan PT Discharge Plan Pt is most appropriate for rehab placement at this time due to decreased safety awareness and general weakness . G -code Required No Eval Complexity Eval Charge Codes 07706 - Moderate Complexity PHYSICIAN CERTIFICATION: I certify the specified therapy services for Sidra Tucker are required, authorized, and reviewed every 30 days.
--- NOTE | 2021-05-18 13:10 | HMH.PHAINT ---
MEDICATION RECONCILIATION COMPLETED ON PATIENT USING EXTERNAL FILL HISTORY FROM PHARMACY, LIST FROM MD OFFICE, AND LIST FROM DISCHARGE SUMMARY FROM PREVIOUS ADMISSION. -NAN BUNCHD
[2021-05-18 16:00] VITALS: BP 105/58; PULSE 87; RESP 20; TEMP 36.5; O2SAT 97
== END 2021-05-18 16:45 ==
LOC: ER 19:57 → 2ND 21:52
PROVIDERS: Admitting Provider Internal Medicine Adolescent Medicine; Emergency Provider Emergency Medicine; PCP Family Medicine; Visit Provider Family Medicine
DX: I63.89 Other cerebral infarction (principal); G81.94 Hemiplegia, unspecified affecting left nondominant side; E11.9 Type 2 diabetes mellitus without complications; Z79.4 Long term (current) use of insulin; I25.10 Atherosclerotic heart disease of native coronary artery without angina pectoris; Z95.5 Presence of coronary angioplasty implant and graft; I48.91 Unspecified atrial fibrillation; Z79.01 Long term (current) use of anticoagulants; Z79.02 Long term (current) use of antithrombotics/antiplatelets; J44.9 Chronic obstructive pulmonary disease, unspecified; E78.5 Hyperlipidemia, unspecified; E03.9 Hypothyroidism, unspecified; Z88.7 Allergy status to serum and vaccine; Z79.899 Other long term (current) drug therapy; I11.0 Hypertensive heart disease with heart failure; I50.9 Heart failure, unspecified; I42.9 Cardiomyopathy, unspecified; Z20.822 Contact with and (suspected) exposure to COVID-19
CPT/HCPCS: G0378; 36415; 70450; 80048; 80053; 80061; 81001; 83735; 84100; 84443; 84484; 85025; 87086; 87186; 93005; 97116; 97162; 97166; 97535; 99284; U0003

== ENCOUNTER 2021-08-27 15:00 | Observation (INO) | payer MEDICARE, SELFPAY ==
[2021-08-27] VITALS (24 sets, daily range): BP systolic 81–118; BP diastolic 35–58; PULSE 78–120; RESP 16–20; TEMP 37.1–37.2; O2SAT 94–100; BMI 27.4; BMI 34.5
--- NOTE | 2021-08-27 15:02 | CT_ITS ---
PROCEDURE INFORMATION: Exam: CT Head Without Contrast Exam date and time: 08/27/2021 3:02 PM Age: 86 years old Clinical indication: Altered mental status/memory loss; Confusion or disorientation; Additional info: AMS TECHNIQUE: Imaging protocol: Computed tomography of the head without contrast. Radiation optimization: All CT scans at this facility use at least one of these dose optimization techniques: automated exposure control; mA and/or kV adjustment per patient size (includes targeted exams where dose is matched to clinical indication); or iterative reconstruction. COMPARISON: CT HEAD/BRAIN WO CON 05/17/2021 6:40 PM FINDINGS: Brain: Central and cortical brain atrophy evident, appropriate for patient age. There is nonspecific periventricular low attenuation, likely microangiopathic disease. No acute intracranial hemorrhage. Encephalomalacia right frontal lobe, from previous vascular insult. Cerebral ventricles: No ventriculomegaly. Paranasal sinuses: Visualized sinuses are unremarkable. No fluid levels. Mastoid air cells: Visualized mastoid air cells are well aerated. Bones/joints: Unremarkable. No acute fracture. Soft tissues: Unremarkable. IMPRESSION: No acute intracranial abnormality.
--- NOTE | 2021-08-27 15:03 | HMH.EDGENADL ---
ED Disposition Clinical Impression: Transaminitis, Total bilirubin, elevated, Encephalopathy acute Cirrhosis Qualifiers: Hepatic cirrhosis type: unspecified hepatic cirrhosis Ascites presence: without ascites Qualified Code(s): K74.60 - Unspecified cirrhosis of liver Disposition: Admitted as Observation Condition on Discharge: Fair Instructions: DI for Altered Mental Status Referrals: Aubrey Akins MD [Primary Care Provider] - Forms: Transfer Record - ED Time of Disposition: 20:06 - Critical Care Critical Care Time: No Attestation: On , the high probability of a clinically significant, sudden or life threatening deterioration of the following system(s) required my full and direct attention, intervention and personal management. The time I documented below is in addition to time spent performing reported procedures but includes the following listed in this critical care notation. Medical Decision Making - Medical Records Medical records reviewed: Yes: I reviewed the patient's medical records. - Pradeep Inquiry Pt receiving controlled substance: No Vital Signs: 08/27/21 15:01 08/27/21 15:05 08/27/21 15:18 Temperature 98.9 F Temperature Source Oral Pulse Rate 106 H 110 H Pulse Rate [Left Radial] 94 H Respiratory Rate 20 Blood Pressure Blood Pressure [Right Arm] 118/55 L Blood Pressure Mean Blood Pressure Mean [Right Arm] 76 Blood Pressure Source [Right Arm] Automatic Cuff Blood Pressure Position [Right Arm] Sitting 02 Sat by Pulse Oximetry 95 94 L 98 Oxygen Delivery Method Room Air 08/27/21 15:30 08/27/21 15:45 08/27/21 16:00 Temperature Temperature Source Pulse Rate 98 H 100 H 107 H Pulse Rate [Left Radial] Respiratory Rate Blood Pressure 98/49 L 102/52 L Blood Pressure [Right Arm] Blood Pressure Mean 65 68 Blood Pressure Mean [Right Arm] Blood Pressure Source [Right Arm] Blood Pressure Position [Right Arm] 02 Sat by Pulse Oximetry 99 100 100 Oxygen Delivery Method 08/27/21 16:30 08/27/21 17:00 08/27/21 17:30 Temperature Temperature Source Pulse Rate 104 H 120 H 89 Pulse Rate [Left Radial] Respiratory Rate Blood Pressure 111/58 L 100/57 L 102/48 L Blood Pressure [Right Arm] Blood Pressure Mean 66 64 57 Blood Pressure Mean [Right Arm] Blood Pressure Source [Right Arm] Blood Pressure Position [Right Arm] 02 Sat by Pulse Oximetry 97 96 96 Oxygen Delivery Method - Lab Data Lab results reviewed: Yes: I reviewed the patient's lab results. Lab Results 08/27/21 15:00: WBC 16.7 H, RBC 4.45, Hgb 12.6, Hct 40.0, MCV 89.7, MCH 28.2, MCHC 31.4 L, RDW 16.2, Plt Count 240, MPV 9.7, Neut % (Auto) 94.3 H, Lymph % (Auto) 1.7 L, [place] % (Auto) 3.4, Eos % (Auto) 0.5, Baso % (Auto) 0.2, Neut # (Auto) 15.8 H, Lymph # (Auto) 0.3 L, [place] # (Auto) 0.6, Eos # (Auto) 0.1, Baso # (Auto) 0.0, Total Counted 100, Neutrophils % (Manual) 95 H, Band Neutrophils % 1.0, Lymphocytes % (Manual) 2 L, Monocytes % (Manual) 2, Platelet Estimate Normal, RBC Morphology Normal 08/27/21 15:00: Sodium 134 L, Potassium 4.7, Chloride 94 L, Carbon Dioxide 26, Anion Gap 18.7 H, BUN 27 H, Creatinine 1.20 H, Estimated Creat Clear 37, Estimated GFR 43 L, Est GFR ( Amer) 52 L, Glucose 246 H, Calcium 10.0, Total Bilirubin 2.2 H, AST 766 H*, ALT 306 H*, Alkaline Phosphatase 150 H, Total Protein 8.0, Albumin 4.6, Globulin 3.4 H, Albumin/Globulin Ratio 1.4 08/27/21 15:27: Urine Color Yellow, Urine Appearance Cloudy, Urine pH 5.5, Ur Specific [place] 1.025, Urine Protein 2+, Urine Glucose (UA) Negative, Urine Ketones Negative, Urine Blood Trace-l, Urine Nitrate Negative, Urine Bilirubin 1+ A, Urine Urobilinogen 1.0, Ur Leukocyte Esterase 1+ A, Urine WBC 20-50, Ur Squamous Epith Cells Occasional, Urine Bacteria 4+ 08/27/21 15:48: SARS-CoV-2 (PCR) Not detected, Influenza A Untype (PCR) Not detected, Influenza Type B (PCR) Not detected Result diagrams: 08/27/21
[2021-08-27 15:17] LABS: Basophils % 0.2 % (0.1-2.0); Eosinophils # 0.1 K/mm3 (0.0-0.4); Eosinophils % 0.5 % (0.1-12.0); Hemoglobin 12.6 g/dL (12.2-16.2); Lymphocytes # 0.3 K/mm3 (0.7-4.5); Lymphocytes % 1.7 % (10-50); Mean Corpuscular HGB Conc 31.4 g/dL (31.8-35.4); Mean Corpuscular Hemoglobin 28.2 pg (27.0-31.2); Mean Corpuscular Volume 89.7 fl (81-99); Mean Platelet Volume 9.7 fl (7.4-10.4); Monocytes # 0.6 K/mm3 (0.1-1.0); Monocytes % 3.4 % (1.7-9.3); Neutrophils # 15.8 K/mm3 (1.8-7.8); Neutrophils % 94.3 % (37.0-80.0); Platelet Count 240 K/mm3 (142-424); Red Blood Count 4.45 M/mm3 (4.20-5.40); Red Cell Distribution Width 16.2 % (11.5-17.5); White Blood Count 16.7 K/mm3 (4.8-10.8)
[2021-08-27 15:19] LABS: MANUAL DIFFERENTIAL MANUAL DIFFERENTIAL (MANUAL DIFF)
[2021-08-27 15:35] LABS: Microscopic, Urine URINE MICROSCOPIC (MICROSCOPIC)
[2021-08-27 15:36] LABS: Chloride 94 mmol/L (98-107); Potassium 4.7 mmoL/L (3.5-5.1); Sodium 134 mmol/L (136-145)
[2021-08-27 15:36] LABS: Appearance,Urine CLOUDY (Clear); Blood, Urine TRACE-L (Negative); Color,Urine YELLOW (Yellow); Glucose,Urine (UA) Negative (Negative); Ketones,Urine Negative (Negative); Leukocyte Esterase,Urine 1+ (Negative); Nitrate,Urine Negative (Negative); PH,Urine 5.5 (5.0-8.5); Protein,Urine 2+ (Negative); Specific Gravity, Urine 1.025 (1.005-1.030)
[2021-08-27 15:38] LABS: Blood Urea Nitrogen 27 mg/dl (7-17); Creatinine Clearance Estimated 37 mL/min (50-200); Estimated Glomerular Filt Rate 43 ml/min (>60); GFR (African American) 52 ML/MIN (>60)
[2021-08-27 15:39] LABS: Alanine Aminotransferase 306 U/L (12-78); Albumin Level 4.6 g/dl (3.5-5.0); Albumin/Globulin Ratio 1.4 (1.1-1.8); Alkaline Phosphatase 150 U/L (38-126); Anion Gap 18.7 mEq/L (5-15); Bilirubin,Total 2.2 mg/dl (0.2-1.3); Carbon Dioxide 26 mmol/L (22.0-30.0); Globulin 3.4 g/dL (1.3-3.2); Glucose 246 mg/dl (74-100)
[2021-08-27 15:40] LABS: Lymphocytes % 2 % (10-50); Monocytes % 2 % (2-9); Neutrophils % 95 % (42-76); Platelet Estimate Normal; RBC Morphology Normal; Total Cells Counted 100
[2021-08-27 15:44] LABS: Bilirubin,Urine 1+ (Negative)
[2021-08-27 15:45] LABS: Bacteria,Urine 4+ /lpf; Squamous Epithelial Cell,Urine Occasional #/hpf (0-5); WBC,Urine 20-50 #/hpf (0-3)
[2021-08-27 15:50] LABS: Aspartate Amino Transferase 766 U/L (14-36)
--- NOTE | 2021-08-27 15:54 | US_ITS ---
PROCEDURE INFORMATION: Exam: US Abdomen, Limited; Right Upper Quadrant Exam date and time: 08/27/2021 3:54 PM Age: 86 years old Clinical indication: Abnormal findings; Abnormal lab test; Elevated liver enzymes; Patient HX: Patient not able to move or answer questions TECHNIQUE: Imaging protocol: US abdomen. Real time ultrasound with image documentation. Limited exam focused on the right upper quadrant. COMPARISON: CT ABDOMEN PELVIS WO CON 08/27/2021 4:06 PM FINDINGS: Liver: There is a diffuse increase in hepatic parenchymal echogenicity, consistent with fatty infiltration. Heterogeneous parenchymal echogenicity and coarse echotexture to the liver. Slightly nodular liver contour. There is enlargement of the liver, measuring 19 cm. Gallbladder: Distended gallbladder. Layering gallbladder sludge and cholelithiasis. Pericholecystic fluid. No gallbladder wall thickening. Sonographic Nava sign could not be evaluated. Common bile duct: There is no evidence of biliary ductal dilation. Pancreas: Visualized pancreas appears unremarkable. Right kidney: Right kidney has a normal corticomedullary differentiation and parenchymal echogenicity. Right kidney measures 10.7 cm in length. Normal right renal cortical thickness. Intraperitoneal space: No right perinephric fluid collections or free fluid. IMPRESSION: 1. Hepatomegaly, hepatic steatosis, and high concern for cirrhosis. 2. Cholelithiasis and layering gallbladder sludge. Additional gallbladder findings are most probably related to interstitial third-spacing from underlying hepatocellular disease. Unfortunately, the sonographic Nava sign could not be evaluated due to the patient's clinical condition and it is difficult to exclude cholecystitis. Consider correlation with HIDA scan if clinically warranted. 3. No biliary ductal dilation.
--- NOTE | 2021-08-27 15:57 | CT_ITS ---
PROCEDURE INFORMATION: Exam: CT Abdomen And Pelvis Without Contrast Exam date and time: 08/27/2021 3:57 PM Age: 86 years old Clinical indication: Abdominal pain; Acute; Additional info: Transaminitis TECHNIQUE: Imaging protocol: Computed tomography of the abdomen and pelvis without contrast. Radiation optimization: All CT scans at this facility use at least one of these dose optimization techniques: automated exposure control; mA and/or kV adjustment per patient size (includes targeted exams where dose is matched to clinical indication); or iterative reconstruction. COMPARISON: CT ABDOMEN PELVIS WO CON 05/27/2019 10:48 AM FINDINGS: Tubes, catheters and devices: A balloon bladder catheter is present. Lungs: Scarring/atelectasis at the lung bases without acute findings. Liver: There is enlargement of the liver, measuring 19 cm. The liver has a nodular contour and there is relative hypertrophy of the caudate lobe, consistent with cirrhosis. There is a diffuse decrease in hepatic parenchymal density, consistent with fatty infiltration. The liver is otherwise unremarkable. Gallbladder and bile ducts: Multiple calcified gallstones are present. The gallbladder is otherwise unremarkable. Pancreas: There is diffuse, benign fatty infiltration of the pancreas. There is diffuse atrophy of the pancreatic parenchyma. The pancreas is otherwise unremarkable. Spleen: The spleen is otherwise unremarkable. Adrenal glands: There is diffuse bilateral adrenal enlargement, nonspecific but most likely related to acute illness or senile in etiology. Kidneys and ureters: There is a simple cyst in the right kidney measuring 1.9 cm, stable. The right kidney is otherwise unremarkable. The right ureter is normal. The left ureter is normal. The left kidney is unremarkable. Stomach and bowel: No bowel wall thickening, obstruction, or other acute pathology. Diffuse colonic diverticulosis is present. There is excessive colonic stool content. Appendix: A normal appendix is identified. Intraperitoneal space: Trace pelvic ascites. No intraperitoneal fluid collections. There is no free intraperitoneal air. Retroperitoneal space: Stable left perinephric thickening/stranding, felt to be of chronic etiology. 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 The vasculature demonstrates diffuse marked atherosclerotic calcification. Lymph nodes: No retroperitoneal, pelvic, or mesenteric adenopathy. Urinary bladder: The bladder is decompressed. There is a small amount of intraluminal bladder gas consistent with instrumentation. Reproductive: There has been a hysterectomy. Bones/joints: No acute skeletal pathology. Moderate multilevel degenerative changes of the spine, as manifested by multilevel anterior osteophytes and multilevel decrease in intervertebral disc space. Soft tissues: Chronic scarring in the subcutaneous tissues of the right hip. No other acute body wall soft tissue findings are appreciated. IMPRESSION: 1. Chronic appearing left perinephric fascial thickening/stranding. Note that these findings have been essentially stable since 2019. Consider correlation with urinalysis to exclude acute infectious process. 2. Hepatomegaly, hepatic steatosis, and early cirrhosis. 3. Gallbladder appears significantly distended with associated cholelithiasis, however there are no significant pericholecystic inflammatory changes or pericholecystic fluid appreciated in this examination. Consider correlation with ultrasound if clinically warranted. 4. Incidental findings as detailed above.
[2021-08-27 16:02] LABS: Coronavirus 19, PCR Not Detected (NotDetected); Influenza A, PCR Not Detected (NotDetected); Influenza B, PCR Not Detected (NotDetected)
--- NOTE | 2021-08-27 17:36 | PC.NURSE ---
Contacted [facility], no immediate beds at this time but will have a GI doctor call back to speak with MD to get on the list.
--- NOTE | 2021-08-27 17:43 | PC.NURSE ---
waiting addictions recovery specialist back from [facility], addictions recovery specialist states if accepted pt will be on a waiting list.
--- NOTE | 2021-08-27 17:50 | PC.NURSE ---
PT HAS BEEN ACCEPTED BY DR JUNG AT [facility] WILL LOOK AT BED AVAILABILITY AND CALL US BACK
--- NOTE | 2021-08-27 17:54 | PC.NURSE ---
waiting alarm installation technician back from transfer center for [facility] -warehouse picker at [facility] gave me the number to call them to see about pt transfer
--- NOTE | 2021-08-27 17:58 | PC.NURSE ---
[facility] call requesting a face sheet on pt, states they are working on a bed for pt, states bed are tight at the moment.
--- NOTE | 2021-08-27 18:40 | PC.NURSE ---
JEFFREY BLACKBURN spoke with ANNA asphalt roller person at [place], states that NANA was gonna talk with the surgeon asphalt roller person and then call us back.
--- NOTE | 2021-08-27 19:18 | PC.NURSE ---
Dr. Gonzalez s/w [facility]. They have accepted, but do not have any beds a this time. Pt is on the waiting list.
--- NOTE | 2021-08-27 19:20 | PC.NURSE ---
Dr. Gonzalez s/w Dr. Rodriguez @ [facility]. They have declined pt. They also reports [facility] has also declined pt.
--- NOTE | 2021-08-27 19:39 | PC.NURSE ---
Calling [facility] for possible transfer.
--- NOTE | 2021-08-27 19:57 | PC.NURSE ---
called [facility] and they declined transfer due to accept because unable to complete ERCP
--- NOTE | 2021-08-27 20:04 | PC.NURSE ---
pt has been placed on waiting list @ [facility]
--- NOTE | 2021-08-27 20:55 | PC.NURSE ---
pt arrived to floor via stretcher at this time
[2021-08-28] VITALS (7 sets, daily range): BP systolic 93–129; BP diastolic 37–70; PULSE 60–110; RESP 15–20; TEMP 36.7–37.9; O2SAT 93–98; BMI 34.4
--- NOTE | 2021-08-28 | MR_ITS ---
PROCEDURE: MR ABDOMEN WO CON CLINICAL INDICATION: MRCP Cholelithiasis. Distended gallbladder. COMPARISON: CT CT ABDOMEN PELVIS WO CON from 08/27/2021 TECHNIQUE: Routine multiplanar multi echo sequences are performed without gadolinium enhancement. MRCP images performed. FINDINGS: Motion artifact is present on every sequence. Patient was unable to breath hold properly. The liver is enlarged . No focal liver lesion evident. Gallbladder appears distended with gallstones. There is a small amount of pericholecystic fluid. No gallbladder wall thickening apparent. There are small bilateral renal cysts. The spleen has an unremarkable appearance. No obvious pancreatic mass. The pancreas is poorly delineated. Small amount fluid is present in the perinephric region on both sides more extensive on the left. No hydronephrosis MRCP images are essentially nondiagnostic due to motion. No obvious biliary dilatation. IMPRESSION: Limited exam.. Distended gallbladder with cholelithiasis and a small amount pericholecystic fluid without obvious biliary dilatation. Hepatomegaly. Small amount of perinephric interstitial fluid. Dictated by: Johnathon Browne MD 08/28/2021 10:41 Johnathon Browne MD in [place] 08/28/2021 10:41
--- NOTE | 2021-08-28 05:26 | PC.NURSE ---
Pt alert to self this shift. NO c/o pain this shift. Pt spiked a fever through the night, tylenol given per mar with desired effects. Dasilva in place draining dark yellow urine. NS @ 50 infusing. Abd is flat and soft, pt reports tenderness in RUQ of abd. bed safety on, call light in reach, no concerns at this time.
[2021-08-28 06:36] LABS: Basophils % 0.2 % (0.1-2.0); Eosinophils % 0.1 % (0.1-12.0); Lymphocytes # 0.8 K/mm3 (0.7-4.5); Lymphocytes % 8.4 % (10-50); Mean Corpuscular Hemoglobin 28.4 pg (27.0-31.2); Mean Corpuscular Volume 86.1 fl (81-99); Mean Platelet Volume 9.8 fl (7.4-10.4); Monocytes # 0.5 K/mm3 (0.1-1.0); Monocytes % 5.5 % (1.7-9.3); Neutrophils # 8.4 K/mm3 (1.8-7.8); Neutrophils % 85.8 % (37.0-80.0); Platelet Count 183 K/mm3 (142-424); Red Cell Distribution Width 16.5 % (11.5-17.5); White Blood Count 9.7 K/mm3 (4.8-10.8)
[2021-08-28 06:47] LABS: Alanine Aminotransferase 212 U/L (12-78); Albumin Level 3.4 g/dl (3.5-5.0); Albumin/Globulin Ratio 1.2 (1.1-1.8); Alkaline Phosphatase 117 U/L (38-126); Anion Gap 14.4 mEq/L (5-15); Aspartate Amino Transferase 325 U/L (14-36); Bilirubin,Total 2.8 mg/dl (0.2-1.3); Blood Urea Nitrogen 28 mg/dl (7-17); Calcium 8.8 mg/dl (8.4-10.2); Carbon Dioxide 24 mmol/L (22.0-30.0); Chloride 99 mmol/L (98-107); Creatinine Clearance Estimated 37 mL/min (50-200); Estimated Glomerular Filt Rate 33 ml/min (>60); GFR (African American) 40 ML/MIN (>60); Globulin 2.9 g/dL (1.3-3.2); Glucose 184 mg/dl (74-100); Potassium 4.4 mmoL/L (3.5-5.1); Sodium 133 mmol/L (136-145); Total Protein,Serum 6.3 g/dl (6.3-8.2)
[2021-08-28 06:55] LABS: MANUAL DIFFERENTIAL MANUAL DIFFERENTIAL (MANUAL DIFF)
[2021-08-28 06:59] LABS: Hemoglobin 10.2 g/dL (12.2-16.2)
--- NOTE | 2021-08-28 07:24 | HMH.HP ---
*Admission Date: 08/27/21 *Chief complaint: Abdominal pain *History of present illness: 86-year-old female presented to the emergency department yesterday after onset of left-sided and epigastric abdominal pain that radiated to the right side. She had associated nausea and heartburn and reports at least one episode of vomiting. No fevers or chills at home. Family was concerned patient may have urinary tract infection due to what they perceived as mental status changes. Patient was brought to the emergency department for evaluation. In the ER patient was found to have abnormal liver functions with CT scan showing gallstones and a distended gallbladder. Ultrasound evaluation of the right upper quadrant was performed but was inconclusive regarding possible common bile duct stones. Patient was admitted for IV fluid hydration, repeat labs and MRCP. The ER physician did attempt to transfer the patient due to the possible/likely need for ERCP as we do not have gastroenterology services. Patient is on a waiting list for transfer [facility] History I have reviewed the patient's past medical history: Yes Medical History: Reports:: Asthma, Atrial Fibrillation, Cardiomyopathy, Congestive Heart Failure, Chronic Obstructive Pulmonary Disease (COPD), Congenital Heart Disease, Coronary Artery Disease, Diabetes Mellitus Type 2, Hyperlipidemia, Hypertension, Lung Disease Denies:: Cancer, Diabetes Mellitus Type 1, Internal Pacemaker, MRSA, Seizures *Have you ever received a pneumonia vaccine?: No *Have you received a flu vaccine this season?: No Other Medical History: Reports: Arthritis, Cataracts, Glaucoma, Hypothyroidism, Thyroid Disease Other Surgeries: Yes: Cardiac Catheterization, Coronary Stent, Hysterectomy-Total, Hysterectomy-Partial, Thyroidectomy, Other. No: Pacemaker Amputation: No Fractures: No - *Social History Smoking Status: Former smoker Tobacco Type: cigarettes Alcohol Intake: never Alcohol Intake Frequency:: other Substance Use Type: denies use *Occupational Status:: retired Housing: house Household Members: family *Travel in the last 8 weeks: None Family Hx:: No significant family history Review of Systems - Constitutional Reports lack of energy, Denies body ache(s), Denies chills - Eyes Reports blurry vision, Denies itchy eyes - ENT Denies abnormal hearing, Denies difficulty swallowing - *Cardiovascular Denies chest pain, Denies chest pain at rest, Denies chest pain with activity - *Respiratory Denies change in phlegm color, Denies chest congestion, Denies cough - *Gastrointestinal Reports abdominal pain, Reports bloating, Reports heartburn - *Genitourinary Denies painful urination - *Musculoskeletal Denies abnormal walking, Denies joint pain - Integumentary/Breasts Denies hair loss - *Neurologic Denies abnormal walking - Psychiatric Denies abnormal sleep pattern, Denies lack of enjoyment - Endocrine Denies cold intolerance Meds Home Medications Medication Instructions Recorded Confirmed Type levothyroxine 125 mcg tablet 125 mcg PO DAILY tab 11/04/17 08/27/21 History omeprazole 40 mg capsule,delayed 40 mg PO DAILY 11/04/17 08/27/21 History release ferrous sulfate 325 mg (65 mg 325 mg PO BID tab 11/05/17 08/27/21 History iron) tablet Clopidogrel Bisulfate [Plavix 75mg 75 mg PO DAILY 05/27/19 08/27/21 History Tab] Digoxin 0.125 mcg PO DAILY 05/27/19 08/27/21 History Fluticasone/Vilanterol [Breo 1 puff IH DAILY 05/28/19 08/27/21 History Ellipta 100-25 Mcg INH] Rosuvastatin Calcium 40 mg PO HS 05/28/19 08/27/21 History metformin 850 mg tablet 850 mg PO BID tab 11/30/19 08/27/21 History duloxetine 30 mg capsule,delayed 60 mg PO DAILY cap 06/27/20 08/27/21 History release Aspirin [Aspirin 81mg EC Tab] 81 mg PO DAILY 05/08/21 08/27/21 History Furosemide [Lasix 40mg tablet] 40 mg PO BID 05/08/21 08/27/21 History Rivaroxaban [Xarelto 20mg Tablet*] 20 mg PO QPMWITHMEAL 05/08/21 1
--- NOTE | 2021-08-28 07:29 | P.CONPHA_ITS ---
[facility] Pharmacy VTE Monitoring - Patient Demographics Admission date: 08/27/21 Report Date: 08/28/21 Time: 07:29 Allergies/Adverse Reactions: Patient Allergies Pertussis Vaccines [PERTUSSIS VACCINES] Allergy (Mild, Verified 08/27/21 23:17) SWELLING tetanus and diphtheria toxoids [TETANUS & DIPHTHERIA TOXOIDS] Allergy (Mild, Verified 08/27/21 23:17) SWELLING Tetanus Vaccines and Toxoid [TETANUS VACCINES & TOXOID] Allergy (Unknown, Verified 08/27/21 23:17) SWELLING Height: 1.57 m Weight: 84.935 kg Patient Problems: Current Active Problems Transaminitis (Acute) Cirrhosis (Acute) Total bilirubin, elevated (Acute) Encephalopathy acute (Acute) - VTE Risk Labs: VTE Related Lab Results Hgb 10.2 g/dL (12.2-16.2) L D 08/28/21 05:31 Hct 31.0 % (37.0-47.0) L 08/28/21 05:31 Plt Count 183 K/mm3 (142-424) 08/28/21 05:31 BUN 28 mg/dl (7-17) H 08/28/21 05:31 Creatinine 1.50 mg/dl (0.52-1.04) H D 08/28/21 05:31 Estimated Creat Clear 37 mL/min (50-200) 08/28/21 05:31 VTE Score: 7 VTE Risk Level: Moderate Risk - Prophylaxis VTE Prophylaxis Ordered?: Yes Types of VTE Prophylaxis: IPCS Thigh High, Pharmacological Location of Applied Device: Bilateral Lower Extremeties Pharmacologic Type: Enoxaparin
[2021-08-28 09:11] LABS: Lymphocytes % 9 % (10-50); Monocytes % 8 % (2-9); Neutrophils % 83 % (42-76); Platelet Estimate Normal; RBC Morphology Normal; Total Cells Counted 100
--- NOTE | 2021-08-28 10:42 | HMH.PHAINT ---
MEDICATION RECONCILIATION COMPLETED ON PATIENT USING EXTERNAL FILL HISTORY FROM PHARMACY AND LIST FROM PCP OFFICE. -NAN BUNCHD
--- NOTE | 2021-08-28 11:17 | HMH.GSCON ---
*Admission Date: 08/27/21 *Reason for consult:: Gallbladder disease *History of present illness: Patient is an 86-year-old female with history of cardiomyopathy, atrial fibrillation, congestive heart failure, COPD, congenital heart disease, coronary artery disease with recent drug-eluting stent placement, diabetes, asthma on Plavix and Xarelto who presented to the emergency department yesterday with symptoms of onset of left-sided and epigastric pain radiating to the right abdomen. She has symptoms of associated nausea and heartburn with some vomiting. She had perceived mental status changes according to the family and there was concern for possible urinary tract infection. In the emergency department work-up revealed abnormal liver function tests with CT scan showing findings of hepatomegaly and early cirrhosis, distended gallbladder with gallstones. She did undergo gallbladder ultrasound. Patient was admitted for inpatient management with IV fluid hydration, follow-up labs, and MRCP. Patient is apparently on the waiting list for transfer for ERCP. MRCP was performed which is nondiagnostic due to patient motion artifact. Review of Systems - Review of Systems Review of systems:: unable to obtain - *Neurologic Denies abnormal walking, Denies abnormal hearing [facility] History I have reviewed the patient's past medical history: Yes Medical History: Reports:: Asthma, Atrial Fibrillation, Cardiomyopathy, Congestive Heart Failure, Chronic Obstructive Pulmonary Disease (COPD), Congenital Heart Disease, Coronary Artery Disease, Diabetes Mellitus Type 2, Hyperlipidemia, Hypertension, Lung Disease Denies:: Cancer, Diabetes Mellitus Type 1, Internal Pacemaker, MRSA, Seizures *Have you ever received a pneumonia vaccine?: No *Have you received a flu vaccine this season?: No Other Medical History: Reports: Arthritis, Cataracts, Glaucoma, Hypothyroidism, Thyroid Disease Other Surgeries: Yes: Cardiac Catheterization, Coronary Stent, Hysterectomy-Total, Hysterectomy-Partial, Thyroidectomy, Other. No: Pacemaker Amputation: No Fractures: No - *Social History Smoking Status: Former smoker Tobacco Type: cigarettes Alcohol Intake: never Alcohol Intake Frequency:: other Substance Use Type: denies use *Occupational Status:: retired Housing: house Household Members: family *Travel in the last 8 weeks: None Family Hx:: No significant family history Meds Home Medications Medication Instructions Recorded Confirmed Type levothyroxine 125 mcg tablet 125 mcg PO DAILY tab 11/04/17 08/27/21 History omeprazole 40 mg capsule,delayed 40 mg PO DAILY 11/04/17 08/27/21 History release ferrous sulfate 325 mg (65 mg 325 mg PO BID tab 11/05/17 08/27/21 History iron) tablet Clopidogrel Bisulfate [Plavix 75mg 75 mg PO DAILY 05/27/19 08/27/21 History Tab] Digoxin 0.125 mcg PO DAILY 05/27/19 08/27/21 History Fluticasone/Vilanterol [Breo 1 puff IH DAILY 05/28/19 08/27/21 History Ellipta 100-25 Mcg INH] Rosuvastatin Calcium 40 mg PO HS 05/28/19 08/27/21 History metformin 850 mg tablet 850 mg PO BIDWMEAL tab 11/30/19 08/28/21 History duloxetine 30 mg capsule,delayed 90 mg PO DAILY cap 06/27/20 08/28/21 History release Aspirin [Aspirin 81mg EC Tab] 81 mg PO DAILY 05/08/21 08/27/21 History Furosemide [Lasix 40mg tablet] 40 mg PO BID 05/08/21 08/27/21 History Rivaroxaban [Xarelto 20mg Tablet*] 20 mg PO QPMWITHMEAL 05/08/21 08/27/21 History Albuterol Sulfate [Albuterol 2 puffs IH Q6HP PRN 05/18/21 08/28/21 History Sulfate Hfa] Insulin NPH Hum/Reg Insulin Hm 0 units SQ DIRECTED 05/18/21 08/27/21 History [Novolin 70-30 100 Unit/ml Vial] Tiotropium [place] [Spiriva 2 puffs IH DAILY 05/18/21 08/27/21 History Respimat] Gabapentin [Gabapentin 400mg Cap] 400 mg PO TID 08/27/21 08/28/21 History Spironolactone 50 mg PO DAILY 08/27/21 08/27/21 History Losartan Potassium [Cozaar 50mg 75 mg PO DAILY 08/28/21 08/28/21 History Tablets] carBAMa
[2021-08-28 12:25] LABS: INR 1.33 (0.9-1.1); Prothrombin Time 14.7 seconds (10.1-12.5)
[2021-08-28 17:33] LABS: POC Glucose,Bedside 129 (70-110)
[2021-08-28 17:33] LABS: POC Glucose,Bedside 118 (70-110)
--- NOTE | 2021-08-28 18:48 | PC.NURSE ---
Patient is non tele and on room air. Patient is assist times two/walker. Bed alarm on. Patient oriented to self only. Awaiting bed placement at [facility] or [facility] in place. Call light in reach. Bed in lowest position.
[2021-08-29] VITALS: BP 107/67; PULSE 104; RESP 15; TEMP 37.4; O2SAT 96
[2021-08-29 03:48] LABS: POC Glucose,Bedside 134 (70-110)
[2021-08-29 03:48] LABS: POC Glucose,Bedside 199 (70-110)
[2021-08-29 04:00] VITALS: BP 111/70; PULSE 99; RESP 19; TEMP 36.7; O2SAT 95
[2021-08-29 04:49] VITALS: BMI 32.9
[2021-08-29 05:44] LABS: POC Glucose,Bedside 149 (70-110)
--- NOTE | 2021-08-29 05:47 | PC.NURSE ---
PT WAS TRANSFERRED VIA STRETCHER PER EMS TO DIFFERENT FACILITY @ [id number]
--- NOTE | 2021-08-29 05:49 | PC.NURSE ---
pt being discharged via ems to [facility] in [place], [place] for higher level of care/GI specialist
--- NOTE | 2021-08-29 13:11 | HMH.DCSUM ---
General - General Admission date:: 08/27/21 Discharge date: 08/29/21 HPI HPI: 86-year-old female presented to the emergency department yesterday after onset of left-sided and epigastric abdominal pain that radiated to the right side. She had associated nausea and heartburn and reports at least one episode of vomiting. No fevers or chills at home. Family was concerned patient may have urinary tract infection due to what they perceived as mental status changes. Patient was brought to the emergency department for evaluation. In the ER patient was found to have abnormal liver functions with CT scan showing gallstones and a distended gallbladder. Ultrasound evaluation of the right upper quadrant was performed but was inconclusive regarding possible common bile duct stones. Patient was admitted for IV fluid hydration, repeat labs and MRCP. The ER physician did attempt to transfer the patient due to the possible/likely need for ERCP as we do not have gastroenterology services. Patient is on a waiting list for transfer Hospital Course Hospital Course: Patient was admitted with gallstones and suspicion of CBD obstruction. U/s was inconclusive. MRCP was poor quality due to motion artifact. General surgery was consulted and recommended transfer for ERCP. Transfer had been arranged through the ER prior to admit. On patient was transferred to [facility]. Objective Vital signs: Temp Pulse Resp BP Pulse Ox 98.1 F 99 H 19 111/70 95 08/29/21 04:00 08/29/21 04:00 08/29/21 04:00 08/29/21 04:00 08/29/21 04:00 Results Labs on day of discharge: Labs from last 24 hours 08/29/21 08/28/21 08/28/21 05:32 20:08 17:07 POC Glucose 149 H 134 H 118 H 08/28/21 08/28/21 12:06 05:37 POC Glucose 129 H 199 H DS: Diagnosis - Discharge Diagnosis (1) Total bilirubin, elevated Status: Acute (2) Transaminitis Status: Acute (3) Atrial fibrillation with controlled ventricular response Status: Acute (4) Hypothyroidism Status: Acute (5) Moderate COPD (chronic obstructive pulmonary disease) Status: Acute (6) Obesity (BMI 30.0-34.9) Status: Acute (7) Pulmonary hypertension Status: Acute (8) Type 2 diabetes mellitus with hyperglycemia, with long-term current use of insulin Status: Acute (9) Coronary artery disease Status: Chronic (10) Hypertensive heart disease Status: Chronic (11) Moderate mitral regurgitation Status: Chronic (12) Moderate tricuspid regurgitation Status: Chronic (13) Obesity Status: Chronic Discharge Plan - Patient Discharge Instructions ACTIVITY: Continue current activity DIET: continue same diet Patient Instructions: DI for Jaundice, DI for Cirrhosis, DI for Encephalopathy, Magnetic Resonance Cholangiopancreatography Forms: Transfer Record - Follow up Plan Disposition: Xfer Short-Term Hosp Condition at discharge:: Stable Home Medications: Home Medications Medication Instructions Recorded Confirmed Type levothyroxine 125 mcg tablet 125 mcg PO DAILY tab 11/04/17 08/27/21 History omeprazole 40 mg capsule,delayed 40 mg PO DAILY 11/04/17 08/27/21 History release ferrous sulfate 325 mg (65 mg 325 mg PO BID tab 11/05/17 08/27/21 History iron) tablet Clopidogrel Bisulfate [Plavix 75mg 75 mg PO DAILY 05/27/19 08/27/21 History Tab] Digoxin 0.125 mcg PO DAILY 05/27/19 08/27/21 History Fluticasone/Vilanterol [Breo 1 puff IH DAILY 05/28/19 08/27/21 History Ellipta 100-25 Mcg INH] Rosuvastatin Calcium 40 mg PO HS 05/28/19 08/27/21 History metformin 850 mg tablet 850 mg PO BIDWMEAL tab 11/30/19 08/28/21 History duloxetine 30 mg capsule,delayed 90 mg PO DAILY cap 06/27/20 08/28/21 History release Aspirin [Aspirin 81mg EC Tab] 81 mg PO DAILY 05/08/21 08/27/21 History Furosemide [Lasix 40mg tablet] 40 mg PO BID 05/08/21 08/27/21 History Rivaroxaban [Xarelto 20mg Tablet*] 20
== END 2021-08-29 05:45 | disposition short-term general hospital (02) ==
LOC: ER 20:07 → 2ND 22:05
PROVIDERS: Surgery; Admitting Provider Family Medicine; Emergency Provider Family Medicine; PCP Family Medicine; Visit Provider Family Medicine
DX: R17 Unspecified jaundice (principal); R74.01 Elevation of levels of liver transaminase levels; I27.20 Pulmonary hypertension, unspecified; K80.60 Calculus of gallbladder and bile duct with cholecystitis, unspecified, without obstruction; K74.60 Unspecified cirrhosis of liver; I42.9 Cardiomyopathy, unspecified; I48.91 Unspecified atrial fibrillation; I08.1 Rheumatic disorders of both mitral and tricuspid valves; R10.13 Epigastric pain; Z79.02 Long term (current) use of antithrombotics/antiplatelets; G93.40 Encephalopathy, unspecified; Z20.822 Contact with and (suspected) exposure to COVID-19; Z79.51 Long term (current) use of inhaled steroids; Z79.82 Long term (current) use of aspirin; I11.0 Hypertensive heart disease with heart failure; I50.9 Heart failure, unspecified; J44.9 Chronic obstructive pulmonary disease, unspecified; E03.9 Hypothyroidism, unspecified; Z95.5 Presence of coronary angioplasty implant and graft; Z87.891 Personal history of nicotine dependence; Z79.01 Long term (current) use of anticoagulants; Z79.4 Long term (current) use of insulin; Z88.7 Allergy status to serum and vaccine; Z79.899 Other long term (current) drug therapy
CPT/HCPCS: G0378; 36415; 70450; 74176; 74181; 76376; 76705; 80053; 81001; 82962; 85007; 85025; 85610; 87086; 87088; 87186; 96365; 96367; 99284; C9803; J1335; U0003; U0005